=== PATIENT | male | born 1960 | race Caucasian/White ===

== ENCOUNTER 2017-06-05 14:31 | Inpatient (IN) ==
--- NOTE | 2017-06-05 15:38 | Emergency Department Note ---
START Narrative - START START: I examined this patient and my medical decision-making was reviewed with the Resident Physician. I agree with the documented findings, disposition and treatment plan as described except to the extent set forth below. 56-year-old male presents emergency room for swelling and redness of the right lower extremity. It was treated for cellulitis a few days ago on clindamycin. Has failed outpatient therapy. Patient will need be admitted for further workup and treatment of this worsening diabetic foot ulcer with surrounding cellulitis.
[2017-06-05] MEDS ORDERED: Ondansetron 4 MG/2 ML VIAL IVP ONE (15:54)
[2017-06-05] MEDS ORDERED: *HR* HYDROmorphone (PF) 1 MG/ML SYRINGE IVP ONE (15:55)
[2017-06-05 16:02] LABS: Basophils % 0.2 %; Eosinophils # 0.2 K/mcL (0.0-0.6); Eosinophils % 1.5 %; Hematocrit 39.5 % (37.5-50.1); Hemoglobin 12.9 g/dL (12.9-16.9); Immature Granulocytes % 0.3 % (0-4); Lymphocytes # 1.4 K/mcL (0.6-4.6); Lymphocytes % 13.8 %; Mean Corpuscular HGB Conc 32.7 g/dL (31.6-35.5); Mean Corpuscular Hemoglobin 28.9 pg (28.0-33.3); Mean Corpuscular Volume 88.4 fL (83.0-100.0); Mean Platelet Volume 9.9 fL (9.4-12.4); Monocytes # 0.7 K/mcL (0.0-1.3); Monocytes % 6.9 %; Platelet Count 181 K/mcL (140-400); Red Blood Count 4.47 M/mcL (4.19-5.50); Red Cell Distribution Width 14.1 % (11.5-14.5); Segmented Neutrophils % 77.3 %
--- NOTE | 2017-06-05 16:06 | Emergency Department Note ---
Disposition Clinical Impression: Cellulitis Qualifiers: Site of cellulitis: extremity Site of cellulitis of extremity: lower extremity Laterality: right Qualified Code(s): L03.115 - Cellulitis of right lower limb Diabetic foot ulcer Qualifiers: Diabetic foot ulcer location: toe Diabetes mellitus type: type 2 Laterality: right Non-pressure ulcer stage: limited to breakdown of skin Qualified Code(s): E11.621 - Type 2 diabetes mellitus with foot ulcer Disposition: Admitted As Inpatient Condition: Fair Extremity Problem HPI - General Chief complaint: ED Extremity Problem,Nontraumatic Stated complaint: foot ulcer Time Seen by Provider: 06/05/17 15:01 Source: patient Limitations: no limitations Nursing Notes Reviewed: Yes Vital Signs Reviewed: Yes - History of Present Illness HPI Narrative: Patient is a 56-year-old male who presents to ED via POC plank of increased swelling of the right lower extremity foot where patient has a ulceration at the proximal portion of the small toe that has been problematic for several months now. Patient sees Dr. Rubin. Patient was seen here in the ED 5 days ago and placed on antibiotics (Clindamycin) secondary to increased erythema to the foot. Patient is scheduled for surgery with Dr. Rubin in 3 days. Patient states the foot has been painful 10/10 and has an unable to take any medication for the pain secondary 3 days. Patient states that after wound care bandaged his foot 3 days ago the bandages fairly tight. Bandage was on 4 hours and after removal 3 days ago, the foot started to become edematous. Past medical history significant for A. fib, diabetes, hypertension, hyperlipidemia, renal disease Pain Scale: 10 - Related Data Home Medications Medication Instructions Recorded Confirmed Pravastatin Sodium [Pravachol] 20 mg PO HS 08/10/15 06/05/17 Allopurinol [Zyloprim 300 MG] 300 mg PO DAILY 03/23/16 06/05/17 Insulin Glargine [Lantus] 40 unit SQ HS 06/02/17 06/05/17 Alogliptin Benzoate [Alogliptin] 25 mg PO DAILY 06/05/17 06/05/17 Apixaban [Eliquis] 5 mg PO BID 06/05/17 06/05/17 Aspirin Enteric Coated [Aspirin EC] 162 mg PO DAILY 06/05/17 06/05/17 Bumetanide [Bumex] 1 mg PO DAILY PRN 06/05/17 06/05/17 Cefdinir [Omnicef] 300 mg PO BID 06/05/17 06/05/17 Diltiazem HCl [Diltiazem ER] 180 mg PO BID 06/05/17 06/05/17 Furosemide [Lasix] 40 mg PO DAILY 06/05/17 06/05/17 HYDROcodone/Acet 10/325 mg [[place] 1 tab PO Q8H PRN 06/05/17 06/05/17 10-325 mg] Metoprolol Tartrate [Lopressor] 50 mg PO BID 06/05/17 06/05/17 Multivitamin [Multi-Day Vitamins] 1 each PO DAILY 06/05/17 06/05/17 Pregabalin [Lyrica] 100 mg PO TID 06/05/17 06/05/17 Testosterone [Testosterone] 1 appl TP DAILY 06/05/17 06/05/17 Tizanidine HCl 4 mg PO HS 06/05/17 06/05/17 Topiramate [Topiramate] 50 mg PO BID 06/05/17 06/05/17 glipiZIDE [Glipizide] 20 mg PO BID 06/05/17 06/05/17 Previous Rx's Medication Instructions Recorded Clindamycin [Cleocin] 450 mg PO TID #63 capsule 06/02/17 Allergies Allergy/AdvReac Type Severity Reaction Status Date / Time No Known Allergies Allergy Verified 06/05/17 14:38 Review of Systems: Patient denies fevers, chills, diarrhea, chest pain, shortness of breath, any new back pain (patient has chronic lower back pain), dysuria, hematuria, hematochezia. Patient admits to nausea and vomiting times one time earlier today after waking up, numbness in the right hip and pain and edema to right lower extremity distal to mid way down tibia All systems ED: reviewed and negative except as stated. Review of Systems: As Per HPI Past Medical History - Past Medical History Attestation: Yes The following information was validated with the patient. Source: patient Medical history: Reports: arthritis, atrial fibrillation, diabetes, GERD, hyperlipidemia, hypertension, osteoporosis, renal disease, other Surgical history: Reports: orthopedic, other, other Psychiatric history: Reports: depression - Social History Smoking Status: Never smoker Smokeless Tobacco Status: No Alcohol use: Reports: none Drug use: Reports: none Physical Exam Vital Signs Temperature 97.5 F L 06/05/17 14:34 Pulse Rate 100 06/05/17 14:34 Respiratory Rate 20 06/05/17 14:34 Blood Pressure 145/82 06/05/17 14:34 O2 Sat by Pulse Oximetry 96 06/05/17 14:34 Temperature 97.5 F L 06/05/17 14:34 Pulse Rate 101 06/05/17 16:06 Respiratory Rate 18 06/05/17 16:06 Blood Pressure 143/92 06/05/17 15:30 O2 Sat by Pulse Oximetry 93 06/05/17 16:06 Oxygen Delivery Oxygen Delivery Room Air -General Appearance: Patient is a 6-year-old male alert and oriented 3 in no acute distress. Patient is nondiaphoretic, nontoxic-appearing. Patient converses with ease. - Head Head exam: atraumatic, normocephalic, normal inspection - Eye Eye exam: Present: normal appearance, PERRL, EOMI, negative for scleral icterus negative for conjunctival pallor - ENT ENT exam: normal exam, normal oropharynx, mucous membranes moist - Neck Neck exam: Present: normal inspection, full ROM, trachea midline, negative JVD - Chest Chest inspection: Present: Patient has bilateral equal rise and fall of chest wall. Non-tender to palpation. - Respiratory Respiratory exam: Clear to auscultation bilaterally without wheezes rales or rhonchi Cardiovascular Cardiovascular exam: Present: Irregularly irregular rhythm no rubs murmurs or gallops patient tachycardic at presentation - Abdominal Exam Abdominal exam: Present: soft, nondistended, Non-Tender light and deep palpation in all quadrants. Bowel sounds normoactive throughout all 4 quadrants. Negative for hyper or hyperresonance. - Extremities Exam Extremities exam: Right lower MET erythematous distal half of tib-fib extend into toes. Line of demarcation placed with marker and dated by me. Tender to palpation, ulcer shallow without weeping and non-purulent. Dorsal pedal pulses equal laterally, sensation and strength equal bilateral lower extremities - Back Exam Back exam: Present: normal inspection, full ROM. Absent: tenderness, CVA tenderness (R), CVA tenderness (L) - Psychiatric Psychiatric exam: Present: normal affect, normal mood - Skin Skin exam: Present: warm, dry, intact, normal color - General Limitations: no limitations General appearance: alert, in no apparent distress Course - Reevaluation(s) Reevaluation #1: Patient is doing well. Labs drawn, cultures drawn, imaging ordered foot, pain medication ordered Time: 15:36 Reevaluation #2: Patient well. Patient receiving pain medication Time: 16:10 Reevaluation #3: Zosyn ordered, patient's pain currently is 0/10. 1 L IV normal saline ordered - Consultations Consultation #1: Discussed case with Dr. park of podiatry who works with Dr. Rubin also of Podiatry. He recommends admission to hospitalist and started on Zosyn until discussion with Dr. Rubin in patient's renal insufficiency history. Time: 16:37 Consultation #2: Dr. Olea the hospitalist has accepted for admission 1700hrs. She has been informed that Podiatry has been consulted and will see Pt to assess. Pt placed on zosyn IV. Time: 17:01 Vital Signs Temperature 97.5 F L 06/05/17 14:34 Pulse Rate 100 06/05/17 14:34 Respiratory Rate 20 06/05/17 14:34 Blood Pressure 145/82 06/05/17 14:34 O2 Sat by Pulse Oximetry 96 06/05/17 14:34 Temperature 98.6 F 06/05/17 19:30 Pulse Rate 94 06/05/17 19:30 Respiratory Rate 18 06/05/17 19:30 Blood Pressure 156/75 06/05/17 19:30 O2 Sat by Pulse Oximetry 94 06/05/17 19:30 Oxygen Delivery Oxygen Delivery Room Air Extremity Problem, [place] [facility] Narrative Medical decision making narrative: She with worsening of right lower extremity cellulitis extending from mid tib- fib tiptoes with diabetic foot ulcer lateral leading edge just proximal to small toe on the right foot. Patient was placed on clindamycin 4 days ago. Foot appears to be getting worse. Patient shows no abnormal labs at this time and a negative lactate. Patient has no other complaints outside of the worsening area of cellulitis to the foot. X-rays show no subcutaneous tissue gas production. Discussed plan of action with podiatry who recommends admission and placed on Zosyn. Patient was accepted for admission Patient doing well and understands and accepts treatment and plan. - Medical Records Medical records reviewed: Yes I reviewed the patient's medical records. - Lab Data Lab results reviewed: Yes I reviewed the patient's lab results. Lab results narrative: Short CBC 06/05/17 Range/Units 15:28 WBC 10.4 (4.3-11.1) K/mcL Hgb 12.9 (12.9-16.9) g/dL Hct 39.5 (37.5-50.1) % Plt Count 181 (140-400) K/mcL Neutrophils # 8.0 (1.6-8.9) K/mcL BMP 06/05/17 Range/Units 15:28 Sodium 141 (136-145) mEq/L Potassium 4.1 (3.5-4.5) mEq/L Chloride 104 (98-109) mEq/L Carbon Dioxide 28 (19-29) mEq/L BUN 19 (8-26) mg/dL Creatinine 1.14 (0.72-1.25) mg/dL Glucose 186 H (70-99) mg/dL Calcium 10.1 (8.6-10.8) mg/dL Result diagrams: 06/05/17 15:28 06/05/17 15:28 Lab Results 06/05/17 06/05/17 06/05/17 Range/Units 15:28 15:28 15:56 WBC 10.4 (4.3-11.1) K/mcL RBC 4.47 (4.19-5.50) M/mcL Hgb 12.9 (12.9-16.9) g/dL Hct 39.5 (37.5-50.1) % MCV 88.4 (83.0-100.0) fL MCH 28.9 (28.0-33.3) pg MCHC 32.7 (31.6-35.5) g/dL RDW 14.1 (11.5-14.5) % Plt Count 181 (140-400) K/mcL MPV 9.9 (9.4-12.4) fL Immature Gran % 0.3 (0-4) % Seg Neutrophils % 77.3 % Lymphocytes % 13.8 % Monocytes % 6.9 % Eosinophils % 1.5 % Basophils % 0.2 % Neutrophils # 8.0 (1.6-8.9) K/mcL Lymphocytes # 1.4 (0.6-4.6) K/mcL Monocytes # 0.7 (0.0-1.3) K/mcL Eosinophils # 0.2 (0.0-0.6) K/mcL Basophils # 0.0 (0.0-0.2) K/mcL Sodium 141 (136-145) mEq/L Potassium 4.1 (3.5-4.5) mEq/L Chloride 104 (98-109) mEq/L Carbon Dioxide 28 (19-29) mEq/L BUN 19 (8-26) mg/dL Creatinine 1.14 (0.72-1.25) mg/dL Est GFR ( Amer) > 60 (> 60) Est GFR (Non-Af Amer) > 60 (> 60) BUN/Creatinine Ratio 17 (6-26) Glucose 186 H (70-99) mg/dL POC Glucose (58-89) Calculated Osmolality 299 (280-300) Lactic Acid 1.7 (0.5-2.2) mmol/L Calcium 10.1 (8.6-10.8) mg/dL 06/05/17 Range/Units 18:42 WBC (4.3-11.1) K/mcL RBC (4.19-5.50) M/mcL Hgb (12.9-16.9) g/dL Hct (37.5-50.1) % MCV (83.0-100.0) fL MCH (28.0-33.3) pg MCHC (31.6-35.5) g/dL RDW (11.5-14.5) % Plt Count (140-400) K/mcL MPV (9.4-12.4) fL Immature Gran % (0-4) % Seg Neutrophils % % Lymphocytes % % Monocytes % % Eosinophils % % Basophils % % Neutrophils # (1.6-8.9) K/mcL Lymphocytes # (0.6-4.6) K/mcL Monocytes # (0.0-1.3) K/mcL Eosinophils # (0.0-0.6) K/mcL Basophils # (0.0-0.2) K/mcL Sodium (136-145) mEq/L Potassium (3.5-4.5) mEq/L Chloride (98-109) mEq/L Carbon Dioxide (19-29) mEq/L BUN (8-26) mg/dL Creatinine (0.72-1.25) mg/dL Est GFR ( Amer) (> 60) Est GFR (Non-Af Amer) (> 60) BUN/Creatinine Ratio (6-26) Glucose (70-99) mg/dL POC Glucose 173 H (58-89) Calculated Osmolality (280-300) Lactic Acid (0.5-2.2) mmol/L Calcium (8.6-10.8) mg/dL - Radiology Data Radiology results reviewed: Yes I reviewed the patient's radiology results. Ankle X-Ray 06/05/17 15:36 IMPRESSION: No evidence of soft tissue gas or acute osseous abnormality of the right ankle or foot. D/ / Jose Nguyen MD / Jose Nguyen MD Interpreting Provider: Jose Nguyen MD Foot X-Ray 06/05/17 15:36
[2017-06-05 16:13] LABS: BUN/Creatinine Ratio 17 (6-26); Blood Urea Nitrogen 19 mg/dL (8-26); Calcium 10.1 mg/dL (8.6-10.8); Carbon Dioxide 28 mEq/L (19-29); Chloride 104 mEq/L (98-109); Glucose 186 mg/dL (70-99); Osmolality,Calculated 299 (280-300); Potassium 4.1 mEq/L (3.5-4.5); Sodium 141 mEq/L (136-145); eGFR For African Americans > 60 (> 60); eGFR For Non-African Americans > 60 (> 60)
[2017-06-05] MEDS ORDERED: Piperacillin/Tazobactam 3.375 GM in D5% in Water (Mini-Bag+) 100 ML IVPB ONE (16:35)
[2017-06-05] MEDS ORDERED: 0.9 % Sodium Chloride 1,000 ML IVC ONE (16:36)
[2017-06-05] MEDS ORDERED: Bumetanide 1 MG TABLET PO PRN (19:04)
[2017-06-05] MEDS ORDERED: *HR* Dextrose 50 % in Water (Syg) 50 ML SYRINGE IVP PRN (19:14)
[2017-06-05] MEDS ORDERED: D5% in Water 1,000 ML IVC PRN (19:14)
[2017-06-05] MEDS ORDERED: Dextrose Gel 15 GM PO PRN ×2 (19:14)
[2017-06-05] MEDS ORDERED: Acetaminophen 325 MG TABLET PO PRN (19:15)
[2017-06-05] MEDS ORDERED: Naloxone 0.4 MG/ML INJ IVP PRN (19:15)
[2017-06-05] MEDS ORDERED: *HR* HYDROcodone/Acet 5/325 mg TABLET PO PRN (19:15)
[2017-06-05] MEDS ORDERED: Ondansetron 4 MG/2 ML VIAL IVP PRN (19:15)
[2017-06-05] MEDS ORDERED: Vancomycin 2,000 MG in D5% in Water 250 ML IVPB SCH (20:00)
[2017-06-05] MEDS ORDERED: NON-FORMULARY MEDICATION 1 EACH EACH (Insulin Glargine [Lantus] 40 UNIT) SQ SCH (21:00)
[2017-06-05] MEDS: APIXABAN 5 MG TABLET PO SCH (21:17)
[2017-06-05] MEDS: *HR* Morphine 2 MG/ML SYRINGE IVP PRN (21:17)
[2017-06-05] MEDS: tiZANidine 4 MG TABLET PO SCH (21:17)
[2017-06-05] MEDS: Topiramate 25 MG TABLET PO SCH (21:23)
[2017-06-05] MEDS: Pregabalin 50 MG CAPSULE PO SCH (21:23)
[2017-06-05] MEDS: Pantoprazole 40 MG VIAL IVP SCH (21:24)
[2017-06-05] MEDS: Furosemide 40 MG/4 ML VIAL IVP SCH (21:24)
[2017-06-05] MEDS: Diltiazem SR (12hr) 90 MG CAPSULE PO SCH (21:24)
[2017-06-05] MEDS: Insulin LISPRO 300 UNITS/3 ML VIAL SQ SCH (21:24)
[2017-06-05] MEDS: Vancomycin 2,000 MG in D5% in Water 500 ML IVPB SCH (22:02)
[2017-06-05] MEDS: Insulin DETEMIR 100 UNIT/ML X5UNITS SQ SCH (22:02)
--- NOTE | 2017-06-05 22:28 | Internal Med History&Physical ---
Date of Encounter: 06/06/17 Time of Encounter: 17:00 Assessment and Plan (1) Cellulitis Current visit: Yes Status: Acute Patient presents with cellulitis of right lower extremity. Patient's right foot , ankle, and slightly below the calf are erythematous, edematous, and warm to the touch. Patient states this is going on for the past several days. Patient' s WBCs are currently 10.4 on admission, heart rate was 100 and respiration rate 20. Patient currently does not meet SIRS criteria but will be monitored closely for signs of increasing infection. IV Zosyn administered in the ED and we will continue IV Zosyn as well as IV vancomycin per pharmacy dosing for infection coverage. Monitor follow-up labs for WBCs. Qualifiers: Site of cellulitis: extremity Site of cellulitis of extremity: lower extremity Laterality: right Qualified Code(s): L03.115 - Cellulitis of right lower limb (2) Diabetic foot ulcer Current visit: Yes Status: Acute Patient presents with diabetic foot ulcer on sole of right foot. Ulcer is currently extending through the fat layer. Patient is followed by Dr. Rubin. Podiatry consult ordered in ED. Wound care ordered daily. Qualifiers: Diabetic foot ulcer location: other Diabetes mellitus type: type 2 Laterality: right Non-pressure ulcer stage: with fat layer exposed Qualified Code(s): E11.621 - Type 2 diabetes mellitus with foot ulcer; L97.512 - Non-pressure chronic ulcer of other part of right foot with fat layer exposed (3) Chronic atrial fibrillation Current visit: Yes Status: Chronic Patient presents with history of chronic atrial fibrillation. Patient placed on continuous cardiac telemetry and we will continue patient's Eliquis. (4) Diabetes Current visit: Yes Status: Chronic Patient presents with history of chronic diabetes which is uncontrolled for the most part. Patient reports he does not do blood glucose checks at home and only relies on A1c readings. Patient instructed on the importance of diet and sugar reduction for management of his current diabetes. Blood glucose before meals at bedtime ordered. A1c ordered. Will continue patient's insulin and add 6 units of nutritional insulin as well as low-dose correction insulin sliding scale and hypoglycemia protocol. Diabetic diet ordered as well as diabetes education. Qualifiers: Diabetes mellitus type: type 2 Diabetes mellitus complication status: with skin complications Diabetes mellitus complication detail: with foot ulcer Diabetes mellitus detention insulin use: with detention use Qualified Code(s) : E11.621 - Type 2 diabetes mellitus with foot ulcer; L97.509 - Non-pressure chronic ulcer of other part of unspecified foot with unspecified severity; Z79.4 - [facility] (current) use of insulin (5) GERD (gastroesophageal reflux disease) Current visit: Yes Status: Chronic Patient presents with history of chronic gastroesophageal reflux disease. IVP Protonix 40 mg ordered daily. Qualifiers: Esophagitis presence: esophagitis presence not specified Qualified Code(s) : K21.9 - Gastro-esophageal reflux disease without esophagitis (6) HLD (hyperlipidemia) Current visit: Yes Status: Chronic Patient presents with history of chronic hyperlipidemia. Lipid panel ordered. Will continue patient's Zocor and Pravastatin. Qualifiers: Hyperlipidemia type: pure hypercholesterolemia Qualified Code(s): E78.00 - Pure hypercholesterolemia, unspecified; E78.0 - Pure hypercholesterolemia (7) HTN (hypertension) Current visit: Yes Status: Chronic Patient presents with history of chronic hypertension. Will monitor patient vital signs. Continue patient's Lopressor and diltiazem. Qualifiers: Hypertension type: essential hypertension Qualified Code(s): I10 - Essential (primary) hypertension (8) DVT prophylaxis Current visit: Yes Status: Acute Patient placed on DVT prophylaxis due to current admission protocol and bedrest status. We will continue patient's Eliquis. Internal Medicine - H&P: HPI Chief complaint: RLE Swelling/Pain Admitted From: Emergency Dept Plans for Post Hospital Care: Home History of present illness: Mr. Rausch is a 56 year old male who presents from the ED with chief complaint of swelling and pain in the right lower extremity/foot due to ulceration of the proximal portion of the small toe that is problematic for several months. Patient denies nausea, vomiting, diarrhea, headache, changes in vision, dizziness, abdominal pain, presyncope, or syncope. Patient is currently followed by Dr. Rubin. Patient currently has diabetic foot ulcer on the sole of the right foot as well as a painful oozing sore on the top of the right foot. Right leg appears cellulitic with erythema extending up past the ankle as well as edema. Currently both LEs are edematous. Patient's current WBCs are 10.4 on admission. Heart rate is 100 and respiratory rate 20. Patient's temperature is 97.5 F. Patient currently does not meet SIRS criteria but will be monitored closely. X-ray taken today of the foot shows no subcutaneous tissue gas production and no indication of osteomyelitis. IV sedation was administered in the ED and we will continue IV Zosyn as well as IV vancomycin with pharmacy dosing for infection coverage. Consult to podiatry and diabetic education ordered. Mr. Rausch is at moderate risk for increasing infection based on current symptoms and will be placed his inpatient status. Patient's current medical history includes arthritis, atrial fibrillation, diabetes with insulin dependency, GERD, HL M.D., HTN, osteoporosis, and renal disease. Follow-up labs ordered to monitor patient's WBCs and infection status. Patient to be monitored closely. Time spent with patient greater than 40 minutes. Past Med Surg Social Fam HX - Past Medical History Source: patient Medical history: arthritis, atrial fibrillation, diabetes, GERD, hyperlipidemia , hypertension, osteoporosis, renal disease, other Psychiatric history: depression - Past Surgical History Surgical History: orthopedic, other (2 lower back, neck, and rotator cuff), other - Social History Smoking Status: Never smoker Smokeless Tobacco Status: No Alcohol use: none Drug use: none Current living situation: Home, With Family Activity Level: Independent ambulation Recent Out of Country Travel Within the Last 8 Weeks: No Exposure or Possible Exposure to Illness During Travel: No - Family History Father Race: Family Member Ethnicity: Non- Living Status: Age at : 72 Cause of : [place] Hx Family Cardiac Disorders: Yes (DE, CHF) Hx Family Endocrine Disorder: Yes (Diabetes) Mother Race: Family Member Ethnicity: Non- Living Status: Age at : 61 Cause of : [place] Hx Family Cardiac Disorders: Yes (CHF, DE) Hx Family Endocrine Disorder: Yes (DM) Brother Race: Family Member Ethnicity: Non- Living Status: Still Living Hx Family Endocrine Disorder: Yes (Thyroid disease, DM) Internal Medicine - H&P: Meds Pravastatin Sodium [Pravachol] 20 mg PO HS 08/10/15 [History] Allopurinol [Zyloprim 300 MG] 300 mg PO DAILY 03/23/16 [History] Clindamycin [Cleocin] 450 mg PO TID #63 capsule 06/02/17 [Rx] Insulin Glargine [Lantus] 40 unit SQ HS 06/02/17 [History] Alogliptin Benzoate [Alogliptin] 25 mg PO DAILY 06/05/17 [History] Apixaban [Eliquis] 5 mg PO BID 06/05/17 [History] Aspirin Enteric Coated [Aspirin EC] 162 mg PO DAILY 06/05/17 [History] Bumetanide [Bumex] 1 mg PO DAILY PRN 06/05/17 [History] Cefdinir [Omnicef] 300 mg PO BID 06/05/17 [History] Diltiazem HCl [Diltiazem ER] 180 mg PO BID 06/05/17 [History] Furosemide [Lasix] 40 mg PO DAILY 06/05/17 [History] HYDROcodone/Acet 10/325 mg [[place] 10-325 mg] 1 tab PO Q8H PRN 06/05/17 [History] Metoprolol Tartrate [Lopressor] 50 mg PO BID 06/05/17 [History] Multivitamin [Multi-Day Vitamins] 1 each PO DAILY 06/05/17 [History] Pregabalin [Lyrica] 100 mg PO TID 06/05/17 [History] Testosterone [Testosterone] 1 appl TP DAILY 06/05/17 [History] Tizanidine HCl 4 mg PO HS 06/05/17 [History] Topiramate [Topiramate] 50 mg PO BID 06/05/17 [History] glipiZIDE [Glipizide] 20 mg PO BID 06/05/17 [History] Allergies No Known Allergies Allergy (Verified 06/05/17 14:38) All Systems PM: A 10-system review of systems was performed and is negative for pertinent findings except as documented above in the HPI. - Constitutional Constitutional: no chills, no fever(s), no night sweats - EENT Eyes: no change in vision, no discharge, no pain, no photophobia Ears: no ear discharge, no ear pain, no tinnitus Nose, mouth and throat: no dysphagia, no nasal discharge, no neck pain, no sore throat - Breasts Breasts: as per HPI - Cardiovascular Cardiovascular ROS IM: no chest pain, no diaphoresis, no dyspnea, no lightheadedness, no palpitations, no syncope - Respiratory Respiratory: no cough, no dyspnea, no wheezing, no excessive phlegm production - Gastrointestinal Gastrointestinal: no abdominal pain, no diarrhea, no hematemesis, no hematochezia, no melena, no nausea, no vomiting - Genitourinary Genitourinary ROS male: as per HPI - Musculoskeletal Musculoskeletal ROS IM: no numbness, no tingling - Integumentary Integumentary IM: skin ulcer (RLE), sores (RLE) - Neurological Neurological ROS: no confusion, no convulsions, no focal weakness, no numbness, no tingling, no tremor(s) - Psychiatric Psychiatric: as per HPI - Endocrine Endocrine IM: as per HPI - Hematologic/Lymphatic Hematologic/Lymphatic: no easy bruising - Allergic/Immunologic Allergic/Immunologic: as per HPI - Constitutional Vitals: Temp Pulse Resp BP Pulse Ox 98.6 F 94 18 156/75 94 06/05/17 19:30 06/05/17 19:30 06/05/17 19:30 06/05/17 19:30 06/05/17 19:30 General appearance: Present: cooperative, A&O X 3, morbidly obese, pleasant, no acute distress, answers questions appropriately - Head Head exam: Present: atraumatic, normocephalic - Eye Eye exam: Present: PERRL, conjuntiva pink, sclera anicteric Pupils: Present: PERRL - ENT ENT exam: Present: normal exam, normal external ear exam - Neck Neck exam general surgery: Present: normal inspection, supple, trachea midline. Absent: lymphadenopathy - Respiratory Respiratory exam: Present: CTAB. Absent: accessory muscle use, rales, rhonchi, wheezes - Cardiovascular Cardiovascular exam: Present: irregular rhythm - GI/Abdominal GI/Abdominal exam: Present: normal bowel sounds, soft, no peritoneal signs. Absent: distended, tenderness - Rectal Rectal exam: Present: deferred - Additional comments: exam deferred. - Extremities Exam Extremities exam: Present: pedal edema, warm - Back Exam Back exam: Present: normal inspection - Neurological Exam Neurological exam: Present: CN II-XII intact, oriented X3, no focal deficits. Absent: pronater drift, facial droop, speech deficit - Psychiatric Psychiatric exam: Present: normal affect, normal mood - Skin Skin exam: Present: dry, intact Internal Med - H&P Results - Labs CBC & Chem 7: 06/05/17 15:28 06/05/17 15:28 - Diagnostic Studies Other Images Additional comments: Impressions Ankle X-Ray 06/05/17 15:36 IMPRESSION: No evidence of soft tissue gas or acute osseous abnormality of the right ankle or foot. D/ / Jose Nguyen MD / Jose Nguyen MD Interpreting Provider: Jose Nguyen MD Foot X-Ray 06/05/17 15:36
[2017-06-06] MEDS: Piperacillin/Tazobactam 3.375 GM in D5% in Water (Mini-Bag+) 100 ML IVPB SCH ×3 (00:19→16:02)
[2017-06-06 05:46] LABS: Basophils % 0.4 %; Eosinophils # 0.4 K/mcL (0.0-0.6); Eosinophils % 3.9 %; Hematocrit 38.6 % (37.5-50.1); Hemoglobin 12.9 g/dL (12.9-16.9); Immature Granulocytes % 0.4 % (0-4); Lymphocytes # 1.5 K/mcL (0.6-4.6); Lymphocytes % 17.2 %; Mean Corpuscular HGB Conc 33.4 g/dL (31.6-35.5); Mean Corpuscular Hemoglobin 29.5 pg (28.0-33.3); Mean Corpuscular Volume 88.1 fL (83.0-100.0); Mean Platelet Volume 9.7 fL (9.4-12.4); Monocytes # 0.7 K/mcL (0.0-1.3); Monocytes % 7.8 %; Neutrophils # 6.3 K/mcL (1.6-8.9); Platelet Count 180 K/mcL (140-400); Red Blood Count 4.38 M/mcL (4.19-5.50); Red Cell Distribution Width 14.3 % (11.5-14.5); Segmented Neutrophils % 70.3 %
[2017-06-06 05:53] LABS: INR 1.8; Prothrombin Time 19.8 Seconds (9.4-12.1)
[2017-06-06 05:55] LABS: Activated Partial Thrombo Time 37.8 Seconds (26.0-36.0)
[2017-06-06 06:00] LABS: BUN/Creatinine Ratio 15 (6-26); Blood Urea Nitrogen 17 mg/dL (8-26); Calcium 9.5 mg/dL (8.6-10.8); Carbon Dioxide 28 mEq/L (19-29); Chloride 104 mEq/L (98-109); Chol/HDL Ratio 3.2 (0-4.9); Cholesterol 93 mg/dL (< 200); Glucose 114 mg/dL (70-99); HDL Cholesterol 29 mg/dL (40-59); Hemoglobin A1C 6.1 %; LDL Cholesterol,Calculated 40 mg/dL (0-99); Magnesium 1.8 mg/dL (1.6-2.6); Osmolality,Calculated 290 (280-300); Potassium 3.5 mEq/L (3.5-4.5); Sodium 139 mEq/L (136-145); Triglycerides 118 mg/dL (< 150); eGFR For African Americans > 60 (> 60); eGFR For Non-African Americans > 60 (> 60)
[2017-06-06] MEDS: *HR* Morphine 2 MG/ML SYRINGE IVP PRN ×3 (08:40→21:11)
[2017-06-06] MEDS: Insulin LISPRO 300 UNITS/3 ML VIAL SQ SCH ×7 (08:42→21:10)
[2017-06-06] MEDS: Aspirin Enteric Coated 81 MG Tablet PO SCH (08:44)
[2017-06-06] MEDS: Diltiazem SR (12hr) 90 MG CAPSULE PO SCH ×2 (08:44→21:10)
[2017-06-06] MEDS: APIXABAN 5 MG TABLET PO SCH ×2 (08:45→21:09)
[2017-06-06] MEDS: TESTOSTERONE APPL TP SCH (08:45)
[2017-06-06] MEDS: Pregabalin 50 MG CAPSULE PO SCH ×3 (08:45→21:10)
[2017-06-06] MEDS: Furosemide 40 MG/4 ML VIAL IVP SCH (08:45)
[2017-06-06] MEDS: Pantoprazole 40 MG VIAL IVP SCH (08:45)
[2017-06-06] MEDS: Topiramate 25 MG TABLET PO SCH ×2 (08:46→21:09)
[2017-06-06] MEDS: Multivit/Ca/Min/Fe/FA 1 TAB TABLET PO SCH (08:46)
[2017-06-06] MEDS: Vancomycin 2,000 MG in D5% in Water 500 ML IVPB SCH ×2 (09:04→21:13)
--- NOTE | 2017-06-06 13:49 | Podiatry Consult Note ---
Date of Encounter: 06/06/17 Time of Encounter: 12:00 Assessment and Plan (1) Cellulitis Current visit: Yes Status: Acute Qualifiers: Site of cellulitis: extremity Site of cellulitis of extremity: lower extremity Laterality: right Qualified Code(s): L03.115 - Cellulitis of right lower limb (2) Diabetic foot ulcer Current visit: Yes Status: Acute Cellulitis to the right foot secondary to a full thickness diabetic foot ulceration. Will order an MRI of the right foot, ESR, and CRP. Positive probe to bone through ulceration and concern for abscess. Xray of right foot reviewed, no evidence of bony erosion to the 5th metatarsal head right foot. Dr. Rubin to take patient to OR on 06/08/17 for a wide I&D and metatarsal head # 5 resection right foot. Agree with present antibiotic therapy. Blood cultures ordered and pending. Wound cultures from the right foot on 06/02/17 isolated Citrobacter Braakii and Strep agalactiae (Group B). Wound cultures ordered this admission and pending. WBC: 8.9 and a febrile. Wound care daily, cleanse right foot ulcer daily with mild soap and water pat dry, apply dry sterile 4x4 gauze and kerlix. Qualifiers: Diabetic foot ulcer location: other Diabetes mellitus type: type 2 Laterality: right Non-pressure ulcer stage: with fat layer exposed Qualified Code(s): E11.621 - Type 2 diabetes mellitus with foot ulcer; L97.512 - Non-pressure chronic ulcer of other part of right foot with fat layer exposed (3) Diabetes Current visit: Yes Status: Chronic Qualifiers: Diabetes mellitus type: type 2 Diabetes mellitus complication status: with skin complications Diabetes mellitus complication detail: with foot ulcer Diabetes mellitus supervisor intermediates insulin use: with supervisor intermediates use Qualified Code(s) : E11.621 - Type 2 diabetes mellitus with foot ulcer; L97.509 - Non-pressure chronic ulcer of other part of unspecified foot with unspecified severity; Z79.4 - manager terminal (current) use of insulin History of Present Illness HPI: Mr. Rausch is a 56 year old male admitted to [facility] for a diabetic foot ulceration and cellulitis of the right foot. Patient was initially scheduled to have a 5th metatarsal head resection as an outpatient by Dr. Rubin on 06/08/17. Patient states 6 days ago his right foot became swollen, red, and an open sore formed on the top of the right foot. Patient denies any injury or trauma. Patient states he has had the ulcer to the right foot for approximately a year. Patient states he was being treated in wound care at [place]. Wound cultures from the right foot on 06/02/17 isolated Citrobacter Braakii and Strep agalactiae (Group B). Patient states he went to the ED in [place] for the swelling of the right foot on Monday and was discharged on oral antibiotics. Patient was evaluated in wound care yesterday and was sent over to the hospital due to regression of ulceration. Patient denies fever, chills, nausea, vomiting , or flu like symptoms. Patient has a medical history significant for arthritis , atrial fibrillation, diabetes mellitus with neuropathy, GERD, hyperlipidemia, hypertension, osteopenia, renal disease, and depression. Past Med Surg Social Fam HX - Past Medical History Medical history: arthritis, atrial fibrillation, diabetes, GERD, hyperlipidemia , hypertension, osteoporosis, renal disease, other Psychiatric history: depression - Past Surgical History Surgical History: orthopedic, other (2 lower back, neck, and rotator cuff), other - Social History Smoking Status: Never smoker Smokeless Tobacco Status: No Alcohol use: none Drug use: none - Family History Father Race: Family Member Ethnicity: Non- Living Status: Age at : 72 Cause of : OR Hx Family Cardiac Disorders: Yes (OR, CHF) Hx Family Endocrine Disorder: Yes (Diabetes) Mother Race: Family Member Ethnicity: Non- Living Status: Age at : 61 Cause of : OR Hx Family Cardiac Disorders: Yes (CHF, OR) Hx Family Endocrine Disorder: Yes (DM) Brother Race: Family Member Ethnicity: Non- Living Status: Still Living Hx Family Endocrine Disorder: Yes (Thyroid disease, DM) Medications and Allergies Pravastatin Sodium [Pravachol] 20 mg PO HS 08/10/15 [History] Allopurinol [Zyloprim 300 MG] 300 mg PO DAILY 03/23/16 [History] Clindamycin [Cleocin] 450 mg PO TID #63 capsule 06/02/17 [Rx] Insulin Glargine [Lantus] 40 unit SQ HS 06/02/17 [History] Alogliptin Benzoate [Alogliptin] 25 mg PO DAILY 06/05/17 [History] Apixaban [Eliquis] 5 mg PO BID 06/05/17 [History] Aspirin Enteric Coated [Aspirin EC] 162 mg PO DAILY 06/05/17 [History] Bumetanide [Bumex] 1 mg PO DAILY PRN 06/05/17 [History] Cefdinir [Omnicef] 300 mg PO BID 06/05/17 [History] Diltiazem HCl [Diltiazem ER] 180 mg PO BID 06/05/17 [History] Furosemide [Lasix] 40 mg PO DAILY 06/05/17 [History] HYDROcodone/Acet 10/325 mg [[place] 10-325 mg] 1 tab PO Q8H PRN 06/05/17 [History] Metoprolol Tartrate [Lopressor] 50 mg PO BID 06/05/17 [History] Multivitamin [Multi-Day Vitamins] 1 each PO DAILY 06/05/17 [History] Pregabalin [Lyrica] 100 mg PO TID 06/05/17 [History] Testosterone [Testosterone] 1 appl TP DAILY 06/05/17 [History] Tizanidine HCl 4 mg PO HS 06/05/17 [History] Topiramate [Topiramate] 50 mg PO BID 06/05/17 [History] glipiZIDE [Glipizide] 20 mg PO BID 06/05/17 [History] Allergies No Known Allergies Allergy (Verified 06/05/17 14:38) All Systems Reviewed: A 10-system review of systems was performed and is negative for pertinent findings except as documented above in the HPI. Physical Exam - Constitutional Vitals: Temp Pulse Resp BP Pulse Ox 98.1 F 91 18 144/84 95 06/06/17 11:31 06/06/17 11:31 06/06/17 11:31 06/06/17 11:31 06/06/17 11:31 Exam: General appearance: alert awake oriented X 3. Calm and pleasant, no acute distress.. Vascular: Pedal pulses +2/4 DP/PT , No evidence of cyanosis, pallor or rubor, right foot: Edema graded at 2+/4, Skin Temperature warm, No calf pain with manual compression. capillary refill time is immediate to digits. Neurologic: Sensation diminished with light touch to right foot. . Ulcer: Full-thickness ulceration to sub #5 metatarsal head right foot measuring 1.5 cm in length x 1.5 cm in width with ascending cellulitis to the mid anterior tibial region of the RLE, positive probe to bone. Open area to the dorsal aspect of the right foot at the fifth metatarsal head with erythema and swelling. Moderate amount of serous drainage observed to dressing, no odor. Results - Labs Result Diagrams: 06/06/17 05:17 06/06/17 05:17 Labs: Abnormal lab results PT 19.8 Seconds (9.4-12.1) H 06/06/17 05:17 APTT 37.8 Seconds (26.0-36.0) H 06/06/17 05:17 Glucose 114 mg/dL (70-99) H 06/06/17 05:17 POC Glucose 224 (58-89) H 06/06/17 11:30 Hemoglobin A1c 6.1 % (-5.6) H 06/06/17 05:17 HDL Cholesterol 29 mg/dL (40-59) L 06/06/17 05:17 H & H 06/06/17 Range/Units 05:17 Hgb 12.9 (12.9-16.9) g/dL Hct 38.6 (37.5-50.1) % All other labs normal. Consult Discharge Plan - Plan Referrals: Rogers Pederson MD [Primary Care Provider] - 06/13/17 3:30 pm
--- NOTE | 2017-06-06 16:04 | Internal Med Progress Note ---
Date of Encounter: 06/06/17 Time of Encounter: 09:55 - Assessment and plan (1) Cellulitis Current Visit: Yes Status: Acute Assessment and plan: Acute cellulitis of the right lower extremity. Continue IV antibiotics. Clinically getting better. Moderate risk for complications. Qualifiers: Site of cellulitis: extremity Site of cellulitis of extremity: lower extremity Laterality: right Qualified Code(s): L03.115 - Cellulitis of right lower limb (2) Diabetic foot ulcer Current Visit: Yes Status: Acute Assessment and plan: Podiatry has been consulted. We will follow recommendations. Continue local wound care and IV antibiotics. Qualifiers: Diabetic foot ulcer location: other Diabetes mellitus type: type 2 Laterality: right Non-pressure ulcer stage: with fat layer exposed Qualified Code(s): E11.621 - Type 2 diabetes mellitus with foot ulcer; L97.512 - Non-pressure chronic ulcer of other part of right foot with fat layer exposed (3) Chronic atrial fibrillation Current Visit: Yes Status: Chronic Assessment and plan: Rate control. On Eliquis for anticoagulation. Will stop prior to surgery. (4) Diabetes Current Visit: Yes Status: Chronic Assessment and plan: Blood sugars are well controlled. Continue sliding scale insulin and Levemir Qualifiers: Diabetes mellitus type: type 2 Diabetes mellitus complication status: with skin complications Diabetes mellitus complication detail: with foot ulcer Diabetes mellitus assisted insulin use: with assisted use Qualified Code(s) : E11.621 - Type 2 diabetes mellitus with foot ulcer; L97.509 - Non-pressure chronic ulcer of other part of unspecified foot with unspecified severity; Z79.4 - termination clerk (current) use of insulin (5) DVT prophylaxis Current Visit: Yes Status: Acute (6) GERD (gastroesophageal reflux disease) Current Visit: Yes Status: Chronic Assessment and plan: Continue Protonix Qualifiers: Esophagitis presence: esophagitis presence not specified Qualified Code(s) : K21.9 - Gastro-esophageal reflux disease without esophagitis (7) HTN (hypertension) Current Visit: Yes Status: Chronic Assessment and plan: Blood pressure is better controlled. Continue metoprolol and bumex Qualifiers: Hypertension type: essential hypertension Qualified Code(s): I10 - Essential (primary) hypertension - Subjective Interval history: Patient is awake and alert. Feels that the pain in his right lower extremity somewhat better. Continues to have erythema and swelling in the right lower extremity. No fever reported overnight. No chills or night sweats. Pain well controlled with current medication regimen. - Constitutional Vitals: Temp Pulse Resp BP Pulse Ox 98.0 F 68 18 124/46 96 06/06/17 15:23 06/06/17 15:23 06/06/17 15:23 06/06/17 15:23 06/06/17 15:23 General appearance: Present: cooperative, A&O X 3, morbidly obese, pleasant, no acute distress, answers questions appropriately - Respiratory Respiratory exam: Present: CTAB. Absent: accessory muscle use, rales, rhonchi, wheezes - Cardiovascular Cardiovascular exam: Present: RRR, +S1, +S2. Absent: diastolic murmur, gallop, rubs, systolic murmur - GI/Abdominal GI/Abdominal exam: Present: normal bowel sounds, soft, no peritoneal signs. Absent: distended, tenderness - Extremities Exam Extremities exam: Present: warm, radial pulses palpable and symmetrical. Absent : calf tenderness, cyanotic, pedal edema Additional comments: Erythema and swelling and right lower extremity slightly improved compared to markings placed on admission. Right foot is currently bandaged. Internal Medicine: Result - Labs CBC & Chem 7: 06/06/17 05:17 06/06/17 05:17 Labs: Short CBC 06/06/17 Range/Units 05:17 WBC 8.9 (4.3-11.1) K/mcL Hgb 12.9 (12.9-16.9) g/dL Hct 38.6 (37.5-50.1) % Plt Count 180 (140-400) K/mcL Neutrophils # 6.3 (1.6-8.9) K/mcL BMP 06/06/17 05:17 Sodium 139 Potassium 3.5 Chloride 104 Carbon Dioxide 28 BUN 17 Creatinine 1.10 Glucose 114 H Calcium 9.5 - ABG Interpretation ABG results: PT/INR, D-dimer PT 19.8 Seconds (9.4-12.1) H 06/06/17 05:17 Consult Discharge Plan - Plan Referrals: Rogers Pederson MD [Primary Care Provider] - 06/13/17 3:30 pm
[2017-06-06] MEDS: tiZANidine 4 MG TABLET PO SCH (21:10)
[2017-06-06] MEDS: Insulin DETEMIR 100 UNIT/ML X5UNITS SQ SCH (21:11)
[2017-06-07] MEDS: Piperacillin/Tazobactam 3.375 GM in D5% in Water (Mini-Bag+) 100 ML IVPB SCH ×3 (00:04→16:13)
[2017-06-07] MEDS: *HR* Morphine 2 MG/ML SYRINGE IVP PRN ×5 (04:11→21:03)
[2017-06-07] MEDS: Insulin LISPRO 300 UNITS/3 ML VIAL SQ SCH ×7 (08:44→21:10)
[2017-06-07] MEDS: Pantoprazole 40 MG VIAL IVP SCH (08:45)
[2017-06-07] MEDS: Aspirin Enteric Coated 81 MG Tablet PO SCH (08:48)
[2017-06-07] MEDS: Diltiazem SR (12hr) 90 MG CAPSULE PO SCH ×2 (08:48→21:00)
[2017-06-07] MEDS: Topiramate 25 MG TABLET PO SCH ×2 (08:49→21:02)
[2017-06-07] MEDS: Multivit/Ca/Min/Fe/FA 1 TAB TABLET PO SCH (08:49)
[2017-06-07] MEDS: Pregabalin 50 MG CAPSULE PO SCH ×3 (08:49→21:01)
[2017-06-07] MEDS: Bumetanide 1 MG TABLET PO SCH (08:50)
[2017-06-07] MEDS: TESTOSTERONE APPL TP SCH (09:12)
--- NOTE | 2017-06-07 11:49 | Podiatry Progress Note ---
Date of Encounter: 06/07/17 Time of Encounter: 11:45 - Assessment and Plan (1) Diabetic foot ulcer Current Visit: Yes Status: Acute Assessment: #1 diabetic foot ulcer with recent exacerbation of cellulitis /infection superficial skin necrosis with positive probe to bone test #2 multiple comorbidities as outlined in history Plan: #1 recommend formal debridement and incision and drainage removal of all the necrotic tissue and bone with deep cultures #2 continue present antibiotic therapy #3 local wound care #4 discussed risks versus the benefits as well as alternatives to surgical intervention and debridement. Risks include but not limited to loss of toe, toes, foot, leg, life. DVT bleeding pain before the surgery failure procedure produces I results. Patient able opportunity ask questions about planned procedure type of anesthetic to be employed which is sedation with local anesthesia. All questions are answered to his satisfaction. No guarantees or assurances were made to the outcome. Patient voices comprehension agrees to plan of care. Qualifiers: Diabetic foot ulcer location: unspecified part of foot Diabetes mellitus type: type 2 Laterality: right Non-pressure ulcer stage: limited to breakdown of skin Qualified Code(s): E11.621 - Type 2 diabetes mellitus with foot ulcer; L97.511 - Non-pressure chronic ulcer of other part of right foot limited to breakdown of skin Subjective Principal diagnosis: Diabetic foot ulcer with infection right. Interval history: Patient presently without, chest pain, shortness of breath, fever nausea chills, With persistent foot ulcer right side #5 MTPJ with associated cellulitis and worsening of the ulceration. Objective - Vital Signs Vital Signs: Vital Signs Temp Pulse Resp BP Pulse Ox 06/07/17 07:38 97.8 F 91 16 137/82 98 06/07/17 04:37 97.6 F 69 14 102/60 95 06/07/17 00:17 97.9 F 90 14 101/62 93 06/06/17 21:06 98.4 F 88 14 152/83 98 06/06/17 15:23 98.0 F 68 18 124/46 96 Intake and Output 06/06/17 06/07/17 06/07/17 23:59 07:59 15:59 Intake Total 340 / 340 120 / 120 Output Total 0 / 0 0 / 0 Balance 340 / 340 120 / 120 Intake: IV Fluids 100 / 100 0 / 0 Zosyn 3.375 GM In 100 / 100 0 / 0 Dextrose 5% (Minibag+) 100 ML 100 ML @ 25 mls/hr IVPB Q8HR [facility] Rx#: [id number] Oral 240 / 240 120 / 120 Output: Urine 0 / 0 0 / 0 Other: Meal Dinner Percent of Meal Consumed 100% # Voids 1 Weight 174.633 kg Blood Glucose* 158 167 Patient Weight 06/07/17 23:59 Weight 174.633 kg - Exam Exam: Diabetic foot ulcer as measured with surrounding erythema cellulitis superficial skin necrosis penetrating ulcer with probe to bone test positive. - Lab Result Diagrams: 06/06/17 05:17 06/06/17 05:17 Labs: Abnormal lab results ESR 90 mm/hr (0-10) H 06/06/17 14:07 PT 19.8 Seconds (9.4-12.1) H 06/06/17 05:17 APTT 37.8 Seconds (26.0-36.0) H 06/06/17 05:17 Glucose 114 mg/dL (70-99) H 06/06/17 05:17 POC Glucose 167 (58-89) H 06/07/17 08:40 Hemoglobin A1c 6.1 % (-5.6) H 06/06/17 05:17 C-Reactive Protein 141 mg/L (Less than 5) H 06/06/17 14:07 HDL Cholesterol 29 mg/dL (40-59) L 06/06/17 05:17 Consult Discharge Plan - Plan Referrals: Rogers Pederson MD [Primary Care Provider] - 06/13/17 3:30 pm
--- NOTE | 2017-06-07 16:29 | Internal Med Progress Note ---
Date of Encounter: 06/07/17 Time of Encounter: 10:25 - Assessment and plan (1) Cellulitis Current Visit: Yes Status: Acute Assessment and plan: Involving the right lower extremity. Clinically improving. Continue IV antibiotics. Wound cultures from 06/05/17 positive for strep agalactiae Qualifiers: Site of cellulitis: extremity Site of cellulitis of extremity: lower extremity Laterality: right Qualified Code(s): L03.115 - Cellulitis of right lower limb (2) Diabetic foot ulcer Current Visit: Yes Status: Acute Assessment and plan: Plan for debridement, incision and drainage in the OR tomorrow. Will follow culture results. Continue current IV antibiotics. Moderate risk for complications. Podiatry following. Qualifiers: Diabetic foot ulcer location: other Diabetes mellitus type: type 2 Laterality: right Non-pressure ulcer stage: with fat layer exposed Qualified Code(s): E11.621 - Type 2 diabetes mellitus with foot ulcer; L97.512 - Non-pressure chronic ulcer of other part of right foot with fat layer exposed (3) Chronic atrial fibrillation Current Visit: Yes Status: Chronic Assessment and plan: Rate controlled. Will hold Eliquis for planned surgery tomorrow. (4) Diabetes Current Visit: Yes Status: Chronic Assessment and plan: Blood sugars are elevated. We will increase sliding scale coverage. Qualifiers: Diabetes mellitus type: type 2 Diabetes mellitus complication status: with skin complications Diabetes mellitus complication detail: with foot ulcer Diabetes mellitus correction insulin use: with correction use Qualified Code(s) : E11.621 - Type 2 diabetes mellitus with foot ulcer; L97.509 - Non-pressure chronic ulcer of other part of unspecified foot with unspecified severity; Z79.4 - prison (current) use of insulin (5) GERD (gastroesophageal reflux disease) Current Visit: Yes Status: Chronic Assessment and plan: continue PPI Qualifiers: Esophagitis presence: esophagitis presence not specified Qualified Code(s) : K21.9 - Gastro-esophageal reflux disease without esophagitis (6) HTN (hypertension) Current Visit: Yes Status: Chronic Assessment and plan: Well-controlled Qualifiers: Hypertension type: essential hypertension Qualified Code(s): I10 - Essential (primary) hypertension (7) DVT prophylaxis Current Visit: Yes Status: Acute Assessment and plan: On the liquids but this will be held for surgery planned for tomorrow. - Subjective Interval history: Patient is feeling better today with regards to his right lower extremity cellulitis. He feels it is improving and pain is better controlled. No fever chills or night sweats reported - Constitutional Vitals: Temp Pulse Resp BP Pulse Ox 98.1 F 80 16 124/85 95 06/07/17 15:49 06/07/17 15:49 06/07/17 15:49 06/07/17 15:49 06/07/17 15:49 General appearance: Present: cooperative, A&O X 3, morbidly obese, pleasant, no acute distress, answers questions appropriately - Neck Neck exam general surgery: Present: supple, trachea midline. Absent: lymphadenopathy - Respiratory Respiratory exam: Present: CTAB. Absent: accessory muscle use, rales, rhonchi, wheezes - Cardiovascular Cardiovascular exam: Present: RRR, +S1, +S2. Absent: diastolic murmur, gallop, rubs, systolic murmur - GI/Abdominal GI/Abdominal exam: Present: normal bowel sounds, soft, no peritoneal signs. Absent: distended, tenderness - Extremities Exam Extremities exam: Present: warm, radial pulses palpable and symmetrical. Absent : calf tenderness, cyanotic, pedal edema Additional comments: Erythema and swelling of the right lower extremity improving. Right foot ulcer bandaged Internal Medicine: Result - Labs CBC & Chem 7: 06/06/17 05:17 06/06/17 05:17 - ABG Interpretation ABG results: PT/INR, D-dimer PT 19.8 Seconds (9.4-12.1) H 06/06/17 05:17 - Impressions Impressions Foot MRI 06/06/17 13:53 IMPRESSION: 1. Dorsal ulceration laterally, with a rim enhancing, 2.6 cm focal fluid collection seen just deep to that, compatible with an abscess. In addition, there is associated osteomyelitis involving the 5th metatarsal and within the proximal aspect of the small toe, with probable septic arthritis at the 5th metatarsophalangeal joint. D/ / 06/06/2017 20:39:16 Anant Henry MD / Lacey Alvarez Interpreting Provider: Anant Henry MD Consult Discharge Plan - Plan Referrals: Rogers Pederson MD [Primary Care Provider] - 06/13/17 3:30 pm
[2017-06-07] MEDS: Vancomycin 1,250 MG in D5% in Water 250 ML IVPB SCH (18:18)
[2017-06-07] MEDS: tiZANidine 4 MG TABLET PO SCH (21:01)
[2017-06-07] MEDS: Insulin DETEMIR 100 UNIT/ML X5UNITS SQ SCH (21:02)
[2017-06-08] MEDS: Piperacillin/Tazobactam 3.375 GM in D5% in Water (Mini-Bag+) 100 ML IVPB SCH ×3 (00:28→16:06)
[2017-06-08] MEDS: *HR* Morphine 2 MG/ML SYRINGE IVP PRN ×3 (01:12→19:50)
[2017-06-08] MEDS: Vancomycin 1,250 MG in D5% in Water 250 ML IVPB SCH ×2 (06:06→17:59)
[2017-06-08 07:38] LABS: INR 1.4; Prothrombin Time 15.2 Seconds (9.4-12.1)
[2017-06-08] MEDS: Insulin LISPRO 300 UNITS/3 ML VIAL SQ SCH ×5 (07:38→21:50)
[2017-06-08] MEDS: Pantoprazole 40 MG VIAL IVP SCH (07:50)
[2017-06-08] MEDS: Topiramate 25 MG TABLET PO SCH ×2 (07:50→21:49)
[2017-06-08] MEDS: Aspirin Enteric Coated 81 MG Tablet PO SCH (07:50)
[2017-06-08] MEDS: Pregabalin 50 MG CAPSULE PO SCH ×3 (07:50→21:47)
[2017-06-08] MEDS: Bumetanide 1 MG TABLET PO SCH (07:50)
[2017-06-08] MEDS: Multivit/Ca/Min/Fe/FA 1 TAB TABLET PO SCH (07:50)
[2017-06-08] MEDS: Diltiazem SR (12hr) 90 MG CAPSULE PO SCH ×2 (07:50→21:49)
[2017-06-08] MEDS ORDERED: Ketamine *HR* 500 MG/10 ML MDV ONE (08:06)
[2017-06-08] MEDS ORDERED: Propofol 500 MG/50 ML INFUS..BTL ONE (08:06)
[2017-06-08] MEDS ORDERED: Lidocaine -MPF 2% 2 ML VIAL ONE (08:06)
[2017-06-08] MEDS ORDERED: *HR* Midazolam HCl 5 MG/5 ML VIAL IVP ONE (08:06)
--- NOTE | 2017-06-08 08:59 | Anesthesia Evaluation PreOp ---
Date of Encounter: 06/08/17 Time of Encounter: 08:57 - Past History Planned Operation: I&D right foot Cardiac History: HTN, Arrhythmia (atrial fibrillation) Pulmonary History: SENG Dx ANTHROPOLOGY AND ARCHEOLOGY INSTRUCTOR History: Denies Any Significant HX Other Medical History: Diabetes Type II Anesthesia History: Problems (nausea with anesthesia previously) Alcohol Use: none Drug use: none Medications and Allergies Pravastatin Sodium [Pravachol] 20 mg PO HS 08/10/15 [History] Allopurinol [Zyloprim 300 MG] 300 mg PO DAILY 03/23/16 [History] Clindamycin [Cleocin] 450 mg PO TID #63 capsule 06/02/17 [Rx] Insulin Glargine [Lantus] 40 unit SQ HS 06/02/17 [History] Alogliptin Benzoate [Alogliptin] 25 mg PO DAILY 06/05/17 [History] Apixaban [Eliquis] 5 mg PO BID 06/05/17 [History] Aspirin Enteric Coated [Aspirin EC] 162 mg PO DAILY 06/05/17 [History] Bumetanide [Bumex] 1 mg PO DAILY PRN 06/05/17 [History] Cefdinir [Omnicef] 300 mg PO BID 06/05/17 [History] Diltiazem HCl [Diltiazem ER] 180 mg PO BID 06/05/17 [History] Furosemide [Lasix] 40 mg PO DAILY 06/05/17 [History] HYDROcodone/Acet 10/325 mg [[place] 10-325 mg] 1 tab PO Q8H PRN 06/05/17 [History] Metoprolol Tartrate [Lopressor] 50 mg PO BID 06/05/17 [History] Multivitamin [Multi-Day Vitamins] 1 each PO DAILY 06/05/17 [History] Pregabalin [Lyrica] 100 mg PO TID 06/05/17 [History] Testosterone [Testosterone] 1 appl TP DAILY 06/05/17 [History] Tizanidine HCl 4 mg PO HS 06/05/17 [History] Topiramate [Topiramate] 50 mg PO BID 06/05/17 [History] glipiZIDE [Glipizide] 20 mg PO BID 06/05/17 [History] Allergies No Known Allergies Allergy (Verified 06/05/17 14:38) - Meds/Allergy Pre-op Review Medications Reviewed: Yes Allergies Reviewed: Yes Beta Blockers on Current Med List: Yes If Beta Blockers taken, Date/Time (Last Dose taken): 06-08-17 metoprolol 7:50 Anesthesia Results - Labs 06/06/17 05:17 06/06/17 05:17 - Imaging EKG: report reviewed, image reviewed (atrial fibrillation) Anesthesia Exam Last Vital Signs Temp 98.3 F 06/08/17 07:06 Pulse 85 06/08/17 07:06 Resp 16 06/08/17 07:06 BP 165/91 06/08/17 07:06 Pulse Ox 98 06/08/17 07:06 Weight: 174 kg NPO (# of Hours): >> 8 hrs - HEENT Pupil (Motor): Pupils equal, EOMI Mallampati: III Teeth: Normal Oral Opening: Greater than 3 - ANTHROPOLOGY AND ARCHEOLOGY INSTRUCTOR LOC: Oriented ANTHROPOLOGY AND ARCHEOLOGY INSTRUCTOR Motor: Normal RUE, Normal LUE, Normal RLE, Normal LLE, Normal Face - Cardiac Rhythm: Irregular Murmur: None - Pulmonary Breath Sounds: bilateral Clear Anesthesia Assess/Plan ASA Score: 3 (BMI 48, SENG, Atrial fibrillation, HTN) Modified Warner Scale for Level of Consciousness: Cooperative, oriented, and tranquil Anesthetic Plan: MAC Monitoring Plan: Standard Monitors Recovery Plan: PACU
[2017-06-08] MEDS ORDERED: Bupivacaine/Clonidine Syringe 1 EACH SYRINGE ONE (10:24)
--- NOTE | 2017-06-08 11:59 | Orthopedic Operative Note ---
Date of procedure: 06/08/17 Pre-op diagnosis: #1 osteomyelitis fifth metatarsophalangeal joint/foot abscess Post-op diagnosis: same Procedure: 06/08/17 11:53 #1 incision to bone cortex for osteomyelitis #2 resection of #5 metatarsal phalangeal joint/head of metatarsal and base of phalanx #3 placement of wound VAC Implants: None Complications: None Anesthesia: MAC, local Local Anesthetics: 0.25% Sensorcaine HCL SubQ (cc) Surgeon: Jaya Rubin Estimated blood loss (cc): 20 Tourniquet Time (Minutes): 0 Specimen: Bone cultures swab cultures Condition: stable Disposition: floor Procedure in Detail: 06/08/17 11:54 Detail summary of procedure: Patient brought to surgical suite. Sign in procedure performed. Patient transferred to the surgical table and positioned properly safely securely. Right foot elevated on a foam block. A tourniquet was applied but not employed. Right ankle prepped with alcohol 3 times and anesthetic timeout taken.. Modified ankle block carried out with local anesthetic complications. Surgical timeout taken. An abscess/phlegmon was noted in the dorsal aspect of the distal fifth metatarsal right foot and the ulceration which was the original wound on the plantar aspect of the fifth metatarsal was also clinically visible. At that juncture using a [place] elevator and abscess and tunnel was noted from the phlegmon connecting to the plantar ulceration. The oblique orientation of the tunnel was then drawn with a skin scribe. It was approximately 45 degrees to long axis of the fifth metatarsal. #15 scalpel blade was then used to make the incision to bone/ cortex of the 5th metatarsal along the drawn incision line. The tunnel was then opened and debrided accordingly. MRI was positive for osteomyelitis. Fifth metatarso-phalangeal joint was then isolated the level of the periosteum and freed with a [place] elevator the head of the fifth metatarsal was resected/ostectomy complete from dorsal plantar fashion as well as the base of the proximal phalanx. The specimens were sent for culture. The remaining bone was of normal color tissue density in character. The wound was flushed with copious amounts sterile saline forcefully we did not see any evidence of active purulent drainage or loculated abscess at this time. Cultures were taken of the bone swab cultures as well as the bone itself sent for culture. Satisfied the wound was adequately explored a ultrasonic Misonix debrider was used to completely debride the wound and irrigated simultaneously. Satisfied with a completely clean wound the ulcer on the plantar aspect was excised and the skin rotated in such fashion that we were able to close the wound plantarly and then placed sutures loosely along the incision line up to the dorsal aspect with a phlegmon was left open and a wound VAC was then applied according to protocol. No complications encountered as noted blood loss less than 20 mL. Patient was sent to holding room in good condition with vital signs stable. The original incision extended from the dorsal aspect of the distal fifth metatarsal in oblique fashion to the plantar aspect of the fifth MTPJ proximally 7 cm in length. 06/12/17 12:57
[2017-06-08] MEDS ORDERED: Naloxone 0.4 MG/ML INJ IVP PRN (12:20)
[2017-06-08] MEDS ORDERED: Dextrose Gel 15 GM PO PRN ×2 (12:20)
[2017-06-08] MEDS ORDERED: Acetaminophen 325 MG TABLET PO PRN (12:20)
[2017-06-08] MEDS ORDERED: *HR* Dextrose 50 % in Water (Syg) 50 ML SYRINGE IVP PRN (12:20)
[2017-06-08] MEDS ORDERED: D5% in Water 1,000 ML IVC PRN (12:20)
[2017-06-08] MEDS ORDERED: Ondansetron 4 MG/2 ML VIAL IVP PRN (12:20)
--- NOTE | 2017-06-08 16:15 | Internal Med Progress Note ---
Date of Encounter: 06/08/17 Time of Encounter: 16:16 - Assessment and plan (1) Cellulitis Current Visit: Yes Status: Acute Assessment and plan: Resolving. Continue current antibiotics. We will consult infectious disease for antibiotic recommendations in view of osteomyelitis per MRI and surgery. Wound culture growing strep agalactiae. Qualifiers: Site of cellulitis: extremity Site of cellulitis of extremity: lower extremity Laterality: right Qualified Code(s): L03.115 - Cellulitis of right lower limb (2) Diabetic foot ulcer Current Visit: Yes Status: Acute Assessment and plan: With osteomyelitis involving the fifth metatarsal bone. Status post resection of the fifth metatarsal phalangeal joint. Wound VAC in place. Continue IV antibiotics and wound care. Podiatry following. Qualifiers: Diabetic foot ulcer location: other Diabetes mellitus type: type 2 Laterality: right Non-pressure ulcer stage: with fat layer exposed Qualified Code(s): E11.621 - Type 2 diabetes mellitus with foot ulcer; L97.512 - Non-pressure chronic ulcer of other part of right foot with fat layer exposed (3) Chronic atrial fibrillation Current Visit: Yes Status: Chronic Assessment and plan: Rate controlled. Will resume Eliquis later today (4) Diabetes Current Visit: Yes Status: Chronic Assessment and plan: Continue current management with sliding scale insulin, Levemir and Diet. We will increase coverage of sliding scale insulin as patient is no longer nothing by mouth. Qualifiers: Diabetes mellitus type: type 2 Diabetes mellitus complication status: with skin complications Diabetes mellitus complication detail: with foot ulcer Diabetes mellitus group home insulin use: with group home use Qualified Code(s) : E11.621 - Type 2 diabetes mellitus with foot ulcer; L97.509 - Non-pressure chronic ulcer of other part of unspecified foot with unspecified severity; Z79.4 - director long term care (current) use of insulin (5) GERD (gastroesophageal reflux disease) Current Visit: Yes Status: Chronic Assessment and plan: Continue PPI Qualifiers: Esophagitis presence: esophagitis presence not specified Qualified Code(s) : K21.9 - Gastro-esophageal reflux disease without esophagitis (6) HTN (hypertension) Current Visit: Yes Status: Chronic Assessment and plan: Continue metoprolol And Cardizem. Qualifiers: Hypertension type: essential hypertension Qualified Code(s): I10 - Essential (primary) hypertension (7) DVT prophylaxis Current Visit: Yes Status: Acute Assessment and plan: With Eliquis - Subjective Interval history: Patient underwent surgery this morning. Pain so far has remained controlled. Denies any new complaints at this time. No fever reported. - Constitutional Vitals: Temp Pulse Resp BP Pulse Ox 98.7 F 80 16 144/84 94 06/08/17 13:25 06/08/17 13:25 06/08/17 13:25 06/08/17 13:25 06/08/17 13:25 General appearance: Present: cooperative, A&O X 3, morbidly obese, pleasant, no acute distress, answers questions appropriately - Respiratory Respiratory exam: Present: CTAB. Absent: accessory muscle use, rales, rhonchi, wheezes - Cardiovascular Cardiovascular exam: Present: RRR, +S1, +S2. Absent: diastolic murmur, gallop, rubs, systolic murmur - GI/Abdominal GI/Abdominal exam: Present: normal bowel sounds, soft, no peritoneal signs. Absent: distended, tenderness - Extremities Exam Extremities exam: Present: tenderness, warm, radial pulses palpable and symmetrical. Absent: calf tenderness, cyanotic, pedal edema Additional comments: Erythema in the right lower leg has mostly subsided. Right foot currently bandaged with wound VAC in place Internal Medicine: Result - Labs CBC & Chem 7: 06/06/17 05:17 06/06/17 05:17 - ABG Interpretation ABG results: PT/INR, D-dimer PT 15.2 Seconds (9.4-12.1) H 06/08/17 06:44 Consult Discharge Plan - Plan Referrals: Rogers Pederson MD [Primary Care Provider] - 06/13/17 3:30 pm
[2017-06-08] MEDS ORDERED: Insulin LISPRO 300 UNITS/3 ML VIAL SQ SCH ×2 (16:30→21:00)
[2017-06-08] MEDS: *HR* HYDROcodone/Acet 5/325 mg TABLET PO PRN (16:31)
[2017-06-08] MEDS: tiZANidine 4 MG TABLET PO SCH (21:50)
[2017-06-08] MEDS: APIXABAN 5 MG TABLET PO SCH (21:50)
[2017-06-08] MEDS: Insulin DETEMIR 100 UNIT/ML X5UNITS SQ SCH (21:51)
[2017-06-09] MEDS: *HR* HYDROcodone/Acet 5/325 mg TABLET PO PRN ×3 (00:22→16:42)
[2017-06-09] MEDS: Piperacillin/Tazobactam 3.375 GM in D5% in Water (Mini-Bag+) 100 ML IVPB SCH ×4 (00:22→23:08)
[2017-06-09] MEDS: *HR* Morphine 2 MG/ML SYRINGE IVP PRN ×2 (03:26→23:11)
[2017-06-09] MEDS: Vancomycin 1,250 MG in D5% in Water 250 ML IVPB SCH ×2 (05:44→17:26)
[2017-06-09 05:54] LABS: BUN/Creatinine Ratio 13 (6-26); Blood Urea Nitrogen 13 mg/dL (8-26); Calcium 9.6 mg/dL (8.6-10.8); Carbon Dioxide 27 mEq/L (19-29); Chloride 110 mEq/L (98-109); Glucose 125 mg/dL (70-99); Osmolality,Calculated 298 (280-300); Sodium 143 mEq/L (136-145); eGFR For African Americans > 60 (> 60); eGFR For Non-African Americans > 60 (> 60)
[2017-06-09 05:56] LABS: Basophils % 0.5 %; Eosinophils # 0.5 K/mcL (0.0-0.6); Eosinophils % 5.5 %; Hematocrit 40.3 % (37.5-50.1); Hemoglobin 13.6 g/dL (12.9-16.9); Immature Granulocytes % 0.7 % (0-4); Lymphocytes # 2.2 K/mcL (0.6-4.6); Lymphocytes % 27.3 %; Mean Corpuscular HGB Conc 33.7 g/dL (31.6-35.5); Mean Corpuscular Hemoglobin 29.4 pg (28.0-33.3); Mean Platelet Volume 9.6 fL (9.4-12.4); Monocytes # 0.5 K/mcL (0.0-1.3); Monocytes % 6.5 %; Neutrophils # 4.9 K/mcL (1.6-8.9); Platelet Count 254 K/mcL (140-400); Potassium 4.4 mEq/L (3.5-4.5); Red Blood Count 4.63 M/mcL (4.19-5.50); Red Cell Distribution Width 14.2 % (11.5-14.5); Segmented Neutrophils % 59.5 %
[2017-06-09] MEDS: Topiramate 25 MG TABLET PO SCH ×2 (08:22→23:06)
[2017-06-09] MEDS: Bumetanide 1 MG TABLET PO SCH (08:22)
[2017-06-09] MEDS: Pregabalin 50 MG CAPSULE PO SCH ×3 (08:22→23:07)
[2017-06-09] MEDS: Aspirin Enteric Coated 81 MG Tablet PO SCH (08:22)
[2017-06-09] MEDS: Insulin LISPRO 300 UNITS/3 ML VIAL SQ SCH ×7 (08:23→23:07)
[2017-06-09] MEDS: Diltiazem SR (12hr) 90 MG CAPSULE PO SCH ×2 (08:23→23:06)
[2017-06-09] MEDS: Multivit/Ca/Min/Fe/FA 1 TAB TABLET PO SCH (08:23)
[2017-06-09] MEDS: APIXABAN 5 MG TABLET PO SCH ×2 (08:23→23:07)
[2017-06-09] MEDS ORDERED: Pantoprazole 40 MG VIAL IVP SCH (09:00)
--- NOTE | 2017-06-09 11:31 | Infectious Disease Consult ---
Date of Encounter: 06/09/17 Time of Encounter: 11:26 Assessment and Plan (1) Osteomyelitis Status: Acute Assessment and plan: Location: Right foot, 5th metatarsal and proximal 5th toe. Causative organism GBS per swab culture, but concern for polymicrobial infection given the patient's previous wound culture results (Citrobacter braakii 06/06/17, MSSA 05/11/17). Failed outpatient oral antibiotic therapy (clindamycin). MRI completed 06/06/17 showed findings consistent with OM of the 5th metatarsal and proximal 5th toe. Additionally, the wound was noted to probe to bone. ESR 90, CRP 141. Podiatry consulted. Status post I & D with resection of the 5th metatarsal and wound VAC application 06/08/[address] Rubin. Intra-operative report reviewed. Intra-op cultures obtained and are pending. Await intra-op cultures. Will likely be able to de-escalate to Rocephin 2 grams IV daily when ready for discharge (based on previous cultures and sensitivities) . Continue Vancomycin IV for now. Pharmacy to dose. Goal trough ~15. Continue Zosyn 3.375 grams IV Q8H for now. Will de-escalate antibiotics if/when able based on intra-op cultures. Duration of treatment depends on the clinical picture, but likely 6 weeks of IV antibiotics followed by a course of oral antibiotics. Discussed the risks, benefits, and alternatives to IV antibiotic therapy with the patient at length. He was given adequate time to answer questions and he agrees to proceed with IV antibiotic therapy. learning services coordinator consulted for discharge planning. EPIV placed 06/09/17. Monitor renal function and for drug toxicity and dose-adjust antibiotics. Get weekly CBC, BUN/Cr, ESR, and CRP every Monday for the duration of treatment. Weekly EPIV care per protocol. Follow up with ID 06/26/17 at 0830. Qualifiers: Osteomyelitis type: acute hematogenous Osteomyelitis location: foot Laterality: right Qualified Code(s): M86.071 - Acute hematogenous osteomyelitis, right ankle and foot (2) Cellulitis Status: Acute Assessment and plan: Location: Right foot. Causative organism unclear at this time. Improved. Continue antibiotics as above. Qualifiers: Site of cellulitis: extremity Site of cellulitis of extremity: lower extremity Laterality: right Qualified Code(s): L03.115 - Cellulitis of right lower limb (3) Diabetic foot ulcer Status: Acute Assessment and plan: Likely secondary to offloading and/or poor-fitting shoes. Continue wound care as outlined by the podiatry team. Qualifiers: Diabetic foot ulcer location: unspecified part of foot Diabetes mellitus type: type 2 Laterality: right Non-pressure ulcer stage: limited to breakdown of skin Qualified Code(s): E11.621 - Type 2 diabetes mellitus with foot ulcer; L97.511 - Non-pressure chronic ulcer of other part of right foot limited to breakdown of skin (4) Chronic atrial fibrillation Status: Chronic (5) Diabetes Status: Chronic Assessment and plan: Hgb A1C 6.1%. Continue aggressive glucose monitoring and control to promote wound healing and prevent re-infection. Qualifiers: Diabetes mellitus type: type 2 Diabetes mellitus complication status: with skin complications Diabetes mellitus complication detail: with foot ulcer Diabetes mellitus [facility] insulin use: with termite exterminator helper use Qualified Code(s) : E11.621 - Type 2 diabetes mellitus with foot ulcer; L97.509 - Non-pressure chronic ulcer of other part of unspecified foot with unspecified severity; Z79.4 - ad terminal makeup operator (current) use of insulin (6) HLD (hyperlipidemia) Status: Chronic Qualifiers: Hyperlipidemia type: pure hypercholesterolemia Qualified Code(s): E78.00 - Pure hypercholesterolemia, unspecified; E78.0 - Pure hypercholesterolemia (7) HTN (hypertension) Status: Chronic Qualifiers: Hypertension type: essential hypertension Qualified Code(s): I10 - Essential (primary) hypertension Infectious Disease HPI - Data of Consult Patient: new to practice Consult date: 06/09/17 Requesting Physician: Korey Carlton MD Primary Care Provider: Rogers Pederson MD - Consult Narrative Reason for consult: Osteomyelitis right foot History of present illness: Mr. Rausch is a 56 year old male with a past medical history of A. fib, diabetes, hypertension, hyperlipidemia, and see Fior. He was admitted to the hospital June 05 for cellulitis and diabetic foot ulcer. We are consulted June 09 for further evaluation and treatment recommendations regarding osteo-myelitis of the right foot. The patient's a 56-year-old male with past medical history as stated above. The patient presented to the emergency department with complaints of increasing redness and swelling of the right foot. The patient has a chronic diabetic foot ulcer that he states is been there for about 10 months for which she has been seen in wound clinic at [facility]. He states he was seen in the emergency department 5 days prior to admission and was put on an oral course of clindamycin. He states that the swelling and pain continued and he was seen in wound care and advised him to the emergency department. Upon arrival, the patient was mildly tachycardic, but was otherwise hemodynamically stable. Laboratory studies revealed a normal white blood cell count. Lactic acid was normal. X-ray of the right foot and ankle was negative for any abscess or acute osseous abnormality. Superficial wound culture was obtained that grew out group B strep. Blood cultures were obtained 2 setsand are currently no growth to date. Patient will start empiric Rolf Zosyn and vancomycin was admitted to the hospital for further evaluation and treatment. Since admission, the patient has remained afebrile and hemodynamically stable. Podiatry was consulted and the ulcer was noted to probe to the bone. MRI was completed that showed a 2.6 and regular fluid collection consistent with abscess as well as fifth metatarsal ostomy colitis and proximal small toe osteomyelitis. There were also findings consistent with septic arthritis of the fifth MTP joints. The patient has undergone a incision and debridement of the right foot resection of the fifth metatarsal and wound VAC application on June [address] Rubin. Intraoperative cultures were obtained and are pending. Of note, previous wound culture obtained back on June 02 grew out Citrobacter and group B strep. Prior to that, wound culture grew out MSSA and group B strep as well. During my exam today, the patient states overall he feels well. He denies any fevers or chills or rigors. He denies any headache, weakness, or dizziness. He reports chronic neck and back pain than his baseline. He denies any chest pain, shortness of breath, or cough. He reports one episode of nausea earlier this week that he attributes to the oral antibiotics he was taking, and denies any since then. He denies any vomiting or diarrhea or constipation. He denies any abdominal pain and states his appetite is been okay. He reports he checks his blood sugars at home and it has been running anywhere from 115 to 150. He complains of pain to the right foot. He also endorses swelling to the right foot and up the leg. He also reports some mild numbness to the right lower extremity extending up to the hip since the onset of the swelling as well. He denies any streaking up the leg or erythema that progress past the level of the ankle. He states that overall his pain is improved since surgery, but he is still having some. Currently, the patient is on IV vancomycin and IV Zosyn. We' ve asked to evaluate and make further recommendations. CC: Korey Carlton MD Past Med Surg Social Fam HX - Past Medical History Attestation: Yes The following information was validated with the patient. Source: patient, old records reviewed, nursing notes reviewed Medical history: arthritis, atrial fibrillation, diabetes, GERD, hyperlipidemia , hypertension, osteoporosis, renal disease, other Psychiatric history: depression - Past Surgical History Surgical History: orthopedic, other (2 lower back, neck, and rotator cuff), other - Social History Smoking Status: Never smoker Smokeless Tobacco Status: No Alcohol use: none Drug use: none Occupational status: previously employed Current living situation: Home - Independent Activity Level: Independent ambulation Recent Out of Country Travel Within the Last 8 Weeks: No Exposure or Possible Exposure to Illness During Travel: No - Family History Father Race: Family Member Ethnicity: Non- Living Status: Age at : 72 Cause of : SD Hx Family Cardiac Disorders: Yes (SD, CHF) Hx Family Endocrine Disorder: Yes (Diabetes) Mother Race: Family Member Ethnicity: Non- Living Status: Age at : 61 Cause of : SD Hx Family Cardiac Disorders: Yes (CHF, SD) Hx Family Endocrine Disorder: Yes (DM) Brother Race: Family Member Ethnicity: Non- Living Status: Still Living Hx Family Endocrine Disorder: Yes (Thyroid disease, DM) Infectious Disease-CN:Meds Pravastatin Sodium [Pravachol] 20 mg PO HS 08/10/15 [History] Allopurinol [Zyloprim 300 MG] 300 mg PO DAILY 03/23/16 [History] Clindamycin [Cleocin] 450 mg PO TID #63 capsule 06/02/17 [Rx] Insulin Glargine [Lantus] 40 unit SQ HS 06/02/17 [History] Alogliptin Benzoate [Alogliptin] 25 mg PO DAILY 06/05/17 [History] Apixaban [Eliquis] 5 mg PO BID 06/05/17 [History] Aspirin Enteric Coated [Aspirin EC] 162 mg PO DAILY 06/05/17 [History] Bumetanide [Bumex] 1 mg PO DAILY PRN 06/05/17 [History] Cefdinir [Omnicef] 300 mg PO BID 06/05/17 [History] Diltiazem HCl [Diltiazem ER] 180 mg PO BID 06/05/17 [History] Furosemide [Lasix] 40 mg PO DAILY 06/05/17 [History] HYDROcodone/Acet 10/325 mg [[place] 10-325 mg] 1 tab PO Q8H PRN 06/05/17 [History] Metoprolol Tartrate [Lopressor] 50 mg PO BID 06/05/17 [History] Multivitamin [Multi-Day Vitamins] 1 each PO DAILY 06/05/17 [History] Pregabalin [Lyrica] 100 mg PO TID 06/05/17 [History] Testosterone [Testosterone] 1 appl TP DAILY 06/05/17 [History] Tizanidine HCl 4 mg PO HS 06/05/17 [History] Topiramate [Topiramate] 50 mg PO BID 06/05/17 [History] glipiZIDE [Glipizide] 20 mg PO BID 06/05/17 [History] Allergies No Known Allergies Allergy (Verified 06/05/17 14:38) All systems: reviewed and no additional remarkable complaints except as stated Exam - Constitutional Vitals: Temp Pulse Resp BP Pulse Ox 98.0 F 75 18 118/71 95 06/09/17 11:21 06/09/17 11:21 06/09/17 11:21 06/09/17 11:21 06/09/17 11:21 General appearance: cooperative, morbidly obese, no acute distress - Head Head exam: Present: atraumatic, normal inspection, normocephalic - Eye Eye exam: Present: EOMI, normal appearance, PERRL Pupils: Present: normal accommodation - ENT ENT exam: Present: mucous membranes moist - Neck Neck exam: Present: normal inspection - Respiratory Respiratory exam: Present: CTAB. Absent: rales, respiratory distress, rhonchi, wheezes - Cardiovascular Cardiovascular exam: Present: irregular rhythm. Absent: tachycardia - GI/Abdominal GI/Abdominal exam: Present: distended (obese), normal bowel sounds, soft. Absent: tenderness - Extremities Exam Extremities exam: Present: pedal edema (2+ RLE). Absent: joint swelling, tenderness Additional comments: Right foot wound VAC noted to the lateral aspect with sponge well-compressed. Maceration noted to the skin surrounding the surgical site. Sutures remain intact to the plantar aspect of the foot. Small amount of dark red drainage noted in the Wound VAC canister. - Neurological Exam Neurological exam: Present: alert, oriented X3, no focal deficits - Psychiatric Psychiatric exam: Present: normal affect, normal mood - Skin Skin exam: Present: dry, intact, normal color, warm - Additional findings Additional findings: Powerglide EPIV noted to the LUE with transparent dressing C/D/I. Infectious Disease CN: Results - Labs CBC & Chem 7: 06/09/17 05:03 06/09/17 05:03 Cultures: Cultures 06/05/17 18:27 Wound Culture - Final Right Foot Strep agalactiae - (Group B) 06/05/17 15:56 Blood Culture - Preliminary Peripheral Venipuncture No growth. 06/05/17 15:56 Blood Culture - Preliminary Peripheral Venipuncture No growth. Consult Discharge Plan - Plan Referrals: Rogers Pederson MD [Primary Care Provider] - 06/13/17 3:30 pm Becca Dove CNP [Advanced Practice Nurse] - 06/26/17 8:30 am
--- NOTE | 2017-06-09 13:22 | Internal Med Progress Note ---
Date of Encounter: 06/09/17 Time of Encounter: 09:50 - Assessment and plan (1) Cellulitis Current Visit: Yes Status: Acute Assessment and plan: Cellulitis is resolving. Surgical wound appears clean. Healing well. Qualifiers: Site of cellulitis: extremity Site of cellulitis of extremity: lower extremity Laterality: right Qualified Code(s): L03.115 - Cellulitis of right lower limb (2) Diabetic foot ulcer Current Visit: Yes Status: Acute Assessment and plan: With osteomyelitis related to diabetes. Continue IV antibiotics. Evaluated by infectious diseases and recommended 6 weeks of IV antibiotics. Recommend waiting for final cultures. Patient will most likely be discharged on IV Rocephin based on initial wound culture results if these cultures are negative. Qualifiers: Diabetic foot ulcer location: other Diabetes mellitus type: type 2 Laterality: right Non-pressure ulcer stage: with fat layer exposed Qualified Code(s): E11.621 - Type 2 diabetes mellitus with foot ulcer; L97.512 - Non-pressure chronic ulcer of other part of right foot with fat layer exposed (3) Chronic atrial fibrillation Current Visit: Yes Status: Chronic Assessment and plan: Rate controlled. Continue Eliquis (4) Diabetes Current Visit: Yes Status: Chronic Assessment and plan: Fairly controlled. Continue current insulin regimen. Qualifiers: Diabetes mellitus type: type 2 Diabetes mellitus complication status: with skin complications Diabetes mellitus complication detail: with foot ulcer Diabetes mellitus director long term care insulin use: with [facility] use Qualified Code(s) : E11.621 - Type 2 diabetes mellitus with foot ulcer; L97.509 - Non-pressure chronic ulcer of other part of unspecified foot with unspecified severity; Z79.4 - director long term care (current) use of insulin (5) GERD (gastroesophageal reflux disease) Current Visit: Yes Status: Chronic Assessment and plan: On Prilosec Qualifiers: Esophagitis presence: esophagitis presence not specified Qualified Code(s) : K21.9 - Gastro-esophageal reflux disease without esophagitis (6) HTN (hypertension) Current Visit: Yes Status: Chronic Assessment and plan: Well-controlled Qualifiers: Hypertension type: essential hypertension Qualified Code(s): I10 - Essential (primary) hypertension (7) DVT prophylaxis Current Visit: Yes Status: Acute - Subjective Interval history: Patient complains of some pain in his right foot but overall pain level has decreased since surgery. No fever or chills reported. No other new complaints at this time. Tolerating diet well. - Constitutional Vitals: Temp Pulse Resp BP Pulse Ox 98.0 F 75 18 118/71 95 06/09/17 11:21 06/09/17 11:21 06/09/17 11:21 06/09/17 11:21 06/09/17 11:21 General appearance: Present: cooperative, A&O X 3, morbidly obese, pleasant, no acute distress, answers questions appropriately - Neck Neck exam general surgery: Present: supple, trachea midline. Absent: lymphadenopathy - Respiratory Respiratory exam: Present: CTAB. Absent: accessory muscle use, rales, rhonchi, wheezes - Cardiovascular Cardiovascular exam: Present: RRR, +S1, +S2. Absent: diastolic murmur, gallop, rubs, systolic murmur - GI/Abdominal GI/Abdominal exam: Present: normal bowel sounds, soft, no peritoneal signs. Absent: distended, tenderness - Extremities Exam Extremities exam: Present: warm, radial pulses palpable and symmetrical. Absent : calf tenderness, cyanotic, pedal edema - Neurological Exam Neurological exam: Present: alert, oriented X3, no focal deficits. Absent: speech deficit - Skin Skin exam: Present: dry, intact Internal Medicine: Result - Labs CBC & Chem 7: 06/09/17 05:03 06/09/17 05:03 Labs: Short CBC 06/09/17 Range/Units 05:03 WBC 8.2 (4.3-11.1) K/mcL Hgb 13.6 (12.9-16.9) g/dL Hct 40.3 (37.5-50.1) % Plt Count 254 (140-400) K/mcL Neutrophils # 4.9 (1.6-8.9) K/mcL BMP 06/09/17 05:03 Sodium 143 Potassium 4.4 Chloride 110 H Carbon Dioxide 27 BUN 13 Creatinine 1.04 Glucose 125 H Calcium 9.6 - ABG Interpretation ABG results: PT/INR, D-dimer PT 15.2 Seconds (9.4-12.1) H 06/08/17 06:44 - Impressions Impressions Foot X-Ray 06/09/17 10:29 IMPRESSION: Status post partial resection of the 5th digit with no acute abnormality. D/ /09/2017 11:50:24 Jorge L Guzmán MD / sj Interpreting Provider: Jorge L Guzmán MD Consult Discharge Plan - Plan Referrals: Becca Dove CNP [Advanced Practice Nurse] - 06/26/17 8:30 am Rogers Pederson MD [Primary Care Provider] - 06/13/17 3:30 pm Prescriptions: cefTRIAXone [Rocephin] 2,000 mg IVPB DAILY #45 vial
[2017-06-09] MEDS: tiZANidine 4 MG TABLET PO SCH (23:07)
[2017-06-09] MEDS: Insulin DETEMIR 100 UNIT/ML X5UNITS SQ SCH (23:11)
[2017-06-10] MEDS: *HR* Morphine 2 MG/ML SYRINGE IVP PRN ×5 (03:53→21:23)
[2017-06-10] MEDS: Vancomycin 1,250 MG in D5% in Water 250 ML IVPB SCH ×2 (06:12→18:04)
[2017-06-10] MEDS: Piperacillin/Tazobactam 3.375 GM in D5% in Water (Mini-Bag+) 100 ML IVPB SCH ×2 (08:24→16:38)
[2017-06-10] MEDS: Pregabalin 50 MG CAPSULE PO SCH ×3 (08:28→21:26)
[2017-06-10] MEDS: Bumetanide 1 MG TABLET PO SCH (08:28)
[2017-06-10] MEDS: APIXABAN 5 MG TABLET PO SCH ×2 (08:29→21:26)
[2017-06-10] MEDS: Multivit/Ca/Min/Fe/FA 1 TAB TABLET PO SCH (08:29)
[2017-06-10] MEDS: Topiramate 25 MG TABLET PO SCH ×2 (08:29→21:27)
[2017-06-10] MEDS: Aspirin Enteric Coated 81 MG Tablet PO SCH (08:29)
[2017-06-10] MEDS: Diltiazem SR (12hr) 90 MG CAPSULE PO SCH ×2 (08:29→21:27)
[2017-06-10] MEDS: Insulin LISPRO 300 UNITS/3 ML VIAL SQ SCH ×7 (08:31→22:21)
--- NOTE | 2017-06-10 11:05 | Internal Med Progress Note ---
Date of Encounter: 06/10/17 Time of Encounter: 09:50 - Assessment and plan (1) Diabetic foot ulcer Current Visit: Yes Status: Acute Assessment and plan: With osteomyelitis status post surgery postop day. Doing well postprocedure. Continue IV antibiotics. Wound cultures from surgery are negative so far. If they remain negative tomorrow, patient will be discharged home on Rocephin. Patient wants to come to the hospital daily to get IV antibiotics. Will ask case management to look into this for discharge planning. Qualifiers: Diabetic foot ulcer location: other Diabetes mellitus type: type 2 Laterality: right Non-pressure ulcer stage: with fat layer exposed Qualified Code(s): E11.621 - Type 2 diabetes mellitus with foot ulcer; L97.512 - Non-pressure chronic ulcer of other part of right foot with fat layer exposed (2) Cellulitis Current Visit: Yes Status: Resolved Assessment and plan: Cellulitis has mostly resolved. Will complete antibiotic course per infectious disease recommendations for diabetic foot ulcer with osteomyelitis. Qualifiers: Site of cellulitis: extremity Site of cellulitis of extremity: lower extremity Laterality: right Qualified Code(s): L03.115 - Cellulitis of right lower limb (3) Chronic atrial fibrillation Current Visit: Yes Status: Chronic Assessment and plan: Rate controlled. On Eliquis for anticoagulation (4) Diabetes Current Visit: Yes Status: Chronic Qualifiers: Diabetes mellitus type: type 2 Diabetes mellitus complication status: with skin complications Diabetes mellitus complication detail: with foot ulcer Diabetes mellitus fpc insulin use: with fpc use Qualified Code(s) : E11.621 - Type 2 diabetes mellitus with foot ulcer; L97.509 - Non-pressure chronic ulcer of other part of unspecified foot with unspecified severity; Z79.4 - half-way (current) use of insulin (5) GERD (gastroesophageal reflux disease) Current Visit: Yes Status: Chronic Assessment and plan: Continue Prilosec Qualifiers: Esophagitis presence: esophagitis presence not specified Qualified Code(s) : K21.9 - Gastro-esophageal reflux disease without esophagitis (6) HTN (hypertension) Current Visit: Yes Status: Chronic Assessment and plan: Blood pressure is well controlled Qualifiers: Hypertension type: essential hypertension Qualified Code(s): I10 - Essential (primary) hypertension (7) DVT prophylaxis Current Visit: Yes Status: Acute - Subjective Interval history: Patient is awake and alert. Pain is well controlled in his right foot. No new complaints at this time. Tolerating diet well. - Constitutional Vitals: Temp Pulse Resp BP Pulse Ox 97.9 F 76 17 113/73 96 06/10/17 06:33 06/10/17 06:33 06/10/17 06:33 06/10/17 06:33 06/10/17 06:33 General appearance: Present: cooperative, A&O X 3, morbidly obese, pleasant, no acute distress, answers questions appropriately - Respiratory Respiratory exam: Present: CTAB. Absent: accessory muscle use, rales, rhonchi, wheezes - Cardiovascular Cardiovascular exam: Present: RRR, +S1, +S2. Absent: diastolic murmur, gallop, rubs, systolic murmur - GI/Abdominal GI/Abdominal exam: Present: normal bowel sounds, soft, no peritoneal signs. Absent: distended, tenderness - Extremities Exam Extremities exam: Present: warm, radial pulses palpable and symmetrical. Absent : calf tenderness, cyanotic, pedal edema Additional comments: Erythema of right leg has subsided completely. Right foot is currently bandaged. - Neurological Exam Neurological exam: Present: alert, oriented X3, no focal deficits. Absent: facial droop, speech deficit Internal Medicine: Result - Labs CBC & Chem 7: 06/09/17 05:03 06/09/17 05:03 - ABG Interpretation ABG results: PT/INR, D-dimer PT 15.2 Seconds (9.4-12.1) H 06/08/17 06:44 - Impressions Impressions Foot X-Ray 06/09/17 10:29 IMPRESSION: Status post partial resection of the 5th digit with no acute abnormality. D/ /09/2017 11:50:24 Jorge L Guzmán MD / sj Interpreting Provider: Jorge L Guzmán MD Consult Discharge Plan - Plan Referrals: Becca Dove CNP [Advanced Practice Nurse] - 06/26/17 8:30 am Rogers Pederson MD [Primary Care Provider] - 06/13/17 3:30 pm Prescriptions: cefTRIAXone [Rocephin] 2,000 mg IVPB DAILY #45 vial
[2017-06-10] MEDS: tiZANidine 4 MG TABLET PO SCH (21:26)
[2017-06-10] MEDS: Insulin DETEMIR 100 UNIT/ML X5UNITS SQ SCH (21:40)
--- NOTE | 2017-06-10 22:10 | Podiatry Progress Note ---
Date of Encounter: 06/10/17 Time of Encounter: 22:09 - Assessment and Plan (1) Diabetic foot ulcer Current Visit: Yes Status: Acute Continue prior treatment plan with no changes. Qualifiers: Diabetic foot ulcer location: unspecified part of foot Diabetes mellitus type: type 2 Laterality: right Non-pressure ulcer stage: limited to breakdown of skin Qualified Code(s): E11.621 - Type 2 diabetes mellitus with foot ulcer; L97.511 - Non-pressure chronic ulcer of other part of right foot limited to breakdown of skin Subjective Principal diagnosis: Diabetic foot ulcer with infection right. Interval history: Patient relates no new changes Objective - Vital Signs Vital Signs: Vital Signs Temp Pulse Resp BP Pulse Ox 06/10/17 19:34 98.3 F 82 18 143/77 96 06/10/17 15:20 97.5 F L 73 18 138/86 98 06/10/17 11:58 98.3 F 62 17 103/65 93 06/10/17 06:33 97.9 F 76 17 113/73 96 06/10/17 04:34 97.3 F L 75 18 108/65 96 06/10/17 00:08 98.2 F 84 18 124/75 97 Intake and Output 06/10/17 06/10/17 06/10/17 07:59 15:59 23:59 Intake Total 100 / 100 1070 / 1070 590 / 590 Output Total 0 / 0 200 / 200 0 / 0 Balance 100 / 100 870 / 870 590 / 590 Intake: IV Fluids 100 / 100 350 / 350 350 / 350 Zosyn 3.375 GM In 100 / 100 100 / 100 100 / 100 Dextrose 5% (Minibag+) 100 ML 100 ML @ 25 mls/hr IVPB Q8HR [facility] Rx#: [id number] Vancocin 1,250 MG In 250 / 250 250 / 250 Dextrose 5% 250 ML @ 166. 67 mls/hr IVPB Q12H [facility] Rx#:[id number] Oral 0 / 0 720 / 720 240 / 240 Output: Urine 0 / 0 200 / 200 0 / 0 Other: Meal Lunch Dinner Percent of Meal Consumed 100% 100% Stool Size Small Stool Consistency loose soft Stool Color Brown # Bowel Movements 0 0 Weight 173.2 kg Blood Glucose* 173 164 167 Patient Weight 06/10/17 23:59 Weight 173.2 kg - Exam Exam: The site is healing within normal limits. Capillary fill time intact to the digits. Dressings are intact with minimal strike through. - Lab Result Diagrams: 06/09/17 05:03 06/09/17 05:03 Labs: Abnormal lab results ESR 90 mm/hr (0-10) H 06/06/17 14:07 PT 15.2 Seconds (9.4-12.1) H 06/08/17 06:44 APTT 37.8 Seconds (26.0-36.0) H 06/06/17 05:17 Chloride 110 mEq/L (98-109) H 06/09/17 05:03 Glucose 125 mg/dL (70-99) H 06/09/17 05:03 POC Glucose 167 (58-89) H 06/10/17 20:57 Hemoglobin A1c 6.1 % (-5.6) H 06/06/17 05:17 C-Reactive Protein 141 mg/L (Less than 5) H 06/06/17 14:07 HDL Cholesterol 29 mg/dL (40-59) L 06/06/17 05:17 Microbiology, Last 48 Hours 06/08/17 11:05 Wound Culture - Final Right Foot Strep agalactiae - (Group B) Consult Discharge Plan - Plan Referrals: Becca Dove CNP [Advanced Practice Nurse] - 06/26/17 8:30 am Rogers Pederson MD [Primary Care Provider] - 06/13/17 3:30 pm Prescriptions: cefTRIAXone [Rocephin] 2,000 mg IVPB DAILY #45 vial
[2017-06-11] MEDS: Piperacillin/Tazobactam 3.375 GM in D5% in Water (Mini-Bag+) 100 ML IVPB SCH ×2 (00:44→08:27)
[2017-06-11] MEDS: *HR* Morphine 2 MG/ML SYRINGE IVP PRN ×5 (01:14→20:46)
[2017-06-11] MEDS: Vancomycin 1,250 MG in D5% in Water 250 ML IVPB SCH (06:26)
[2017-06-11] MEDS: Insulin LISPRO 300 UNITS/3 ML VIAL SQ SCH ×7 (08:25→20:54)
[2017-06-11] MEDS: Multivit/Ca/Min/Fe/FA 1 TAB TABLET PO SCH (08:26)
[2017-06-11] MEDS: APIXABAN 5 MG TABLET PO SCH ×2 (08:26→20:42)
[2017-06-11] MEDS: Diltiazem SR (12hr) 90 MG CAPSULE PO SCH ×2 (08:26→20:42)
[2017-06-11] MEDS: Topiramate 25 MG TABLET PO SCH ×2 (08:26→20:42)
[2017-06-11] MEDS: Pregabalin 50 MG CAPSULE PO SCH ×3 (08:26→20:43)
[2017-06-11] MEDS: Bumetanide 1 MG TABLET PO SCH (08:27)
[2017-06-11] MEDS: Aspirin Enteric Coated 81 MG Tablet PO SCH (08:27)
--- NOTE | 2017-06-11 14:33 | Internal Med Progress Note ---
Date of Encounter: 06/11/17 Time of Encounter: 14:28 - Assessment and plan (1) Diabetic foot ulcer Current Visit: Yes Status: Acute Assessment and plan: Wound culture from surgery growing group B strep. We will de-escalate antibiotics and start IV Rocephin. conduit worker making arrangements for outpatient antibiotics. Patient will need 4-6 weeks of IV antibiotics per infectious disease recommendations. Qualifiers: Diabetic foot ulcer location: other Diabetes mellitus type: type 2 Laterality: right Non-pressure ulcer stage: with fat layer exposed Qualified Code(s): E11.621 - Type 2 diabetes mellitus with foot ulcer; L97.512 - Non-pressure chronic ulcer of other part of right foot with fat layer exposed (2) Cellulitis Current Visit: Yes Status: Resolved Qualifiers: Site of cellulitis: extremity Site of cellulitis of extremity: lower extremity Laterality: right Qualified Code(s): L03.115 - Cellulitis of right lower limb (3) Chronic atrial fibrillation Current Visit: Yes Status: Chronic Assessment and plan: Rate controlled. On Eliquis for anticoagulation (4) Diabetes Current Visit: Yes Status: Chronic Assessment and plan: Continue insulin regimen. We will increase Levemir dosage Qualifiers: Diabetes mellitus type: type 2 Diabetes mellitus complication status: with skin complications Diabetes mellitus complication detail: with foot ulcer Diabetes mellitus intermediate insulin use: with supervisor intermediates use Qualified Code(s) : E11.621 - Type 2 diabetes mellitus with foot ulcer; L97.509 - Non-pressure chronic ulcer of other part of unspecified foot with unspecified severity; Z79.4 - USP (current) use of insulin (5) GERD (gastroesophageal reflux disease) Current Visit: Yes Status: Chronic Assessment and plan: Continue omeprazole Qualifiers: Esophagitis presence: esophagitis presence not specified Qualified Code(s) : K21.9 - Gastro-esophageal reflux disease without esophagitis (6) HTN (hypertension) Current Visit: Yes Status: Chronic Assessment and plan: Blood pressure is well controlled Qualifiers: Hypertension type: essential hypertension Qualified Code(s): I10 - Essential (primary) hypertension (7) DVT prophylaxis Current Visit: Yes Status: Acute - Subjective Interval history: Complains of some pain at surgical site on right foot. Otherwise doing well. Erythema has subsided and right lower extremity. No new complaints at this time. - Constitutional Vitals: Temp Pulse Resp BP Pulse Ox 98.2 F 75 17 121/85 96 06/11/17 10:54 06/11/17 10:54 06/11/17 10:54 06/11/17 10:54 06/11/17 10:54 General appearance: Present: cooperative, A&O X 3, morbidly obese, pleasant, no acute distress, answers questions appropriately - Respiratory Respiratory exam: Present: CTAB. Absent: accessory muscle use, rales, rhonchi, wheezes - Cardiovascular Cardiovascular exam: Present: RRR, +S1, +S2. Absent: diastolic murmur, gallop, rubs, systolic murmur - GI/Abdominal GI/Abdominal exam: Present: normal bowel sounds, soft, no peritoneal signs. Absent: distended, tenderness - Extremities Exam Extremities exam: Present: warm, radial pulses palpable and symmetrical. Absent : calf tenderness, cyanotic, pedal edema Additional comments: Erythema of right lower extremity is mostly subsided. There is slight pedal edema involving this extremity. Foot is currently bandaged. Internal Medicine: Result - Labs CBC & Chem 7: 06/09/17 05:03 06/09/17 05:03 - ABG Interpretation ABG results: PT/INR, D-dimer PT 15.2 Seconds (9.4-12.1) H 06/08/17 06:44 Consult Discharge Plan - Plan Referrals: Becca Dove CNP [Advanced Practice Nurse] - 06/26/17 8:30 am Rogers Pederson MD [Primary Care Provider] - 06/13/17 3:30 pm Prescriptions: cefTRIAXone [Rocephin] 2,000 mg IVPB DAILY #45 vial
[2017-06-11] MEDS: *HR* HYDROcodone/Acet 5/325 mg TABLET PO PRN (18:13)
[2017-06-11] MEDS: tiZANidine 4 MG TABLET PO SCH (20:42)
[2017-06-11] MEDS: Insulin DETEMIR 100 UNIT/ML X5UNITS SQ SCH (20:50)
--- NOTE | 2017-06-11 23:24 | Podiatry Progress Note ---
Date of Encounter: 06/11/17 Time of Encounter: 23:24 - Assessment and Plan (1) Diabetic foot ulcer Current Visit: Yes Status: Acute Continue prior treatment plan with no changes. Qualifiers: Diabetic foot ulcer location: unspecified part of foot Diabetes mellitus type: type 2 Laterality: right Non-pressure ulcer stage: limited to breakdown of skin Qualified Code(s): E11.621 - Type 2 diabetes mellitus with foot ulcer; L97.511 - Non-pressure chronic ulcer of other part of right foot limited to breakdown of skin Subjective Principal diagnosis: Diabetic foot ulcer with infection right. Interval history: Patient relates no new changes Objective - Vital Signs Vital Signs: Vital Signs Temp Pulse Resp BP Pulse Ox 06/11/17 19:05 98.2 F 87 18 151/88 96 06/11/17 16:01 98.2 F 77 18 137/87 94 06/11/17 10:54 98.2 F 75 17 121/85 96 06/11/17 07:12 98.0 F 82 17 118/68 98 06/11/17 03:17 97.5 F L 82 17 113/72 95 Intake and Output 06/11/17 06/11/17 06/11/17 07:59 15:59 23:59 Intake Total 340 / 340 480 / 480 220 / 220 Output Total 0 / 0 0 / 0 Balance 340 / 340 480 / 480 220 / 220 Intake: IV Fluids 100 / 100 100 / 100 Zosyn 3.375 GM In 100 / 100 Dextrose 5% (Minibag+) 100 ML 100 ML @ 25 mls/hr IVPB Q8HR [facility] Rx#: [id number] Rocephin 2,000 MG In 100 / 100 Dextrose 5% (Minibag+) 100 ML 100 ML @ 200 mls/ hr IVPB DAILY [facility] Rx#: [id number] Oral 240 / 240 480 / 480 120 / 120 Output: Urine 0 / 0 0 / 0 Other: Meal Lunch Dinner Percent of Meal Consumed 100% 100% # Voids 1 # Bowel Movements 0 0 Weight 173 kg Blood Glucose* 157 198 137 Patient Weight 06/11/17 23:59 Weight 173 kg - Exam Exam: Severe bilateral lower extremity edema. Significant drainage noted out of the right posterior leg and a large wound on the posterior aspect of the patient's right leg. The right heel also has an ulceration. Difficult to palpate any fluctuance or abscess. Generalized erythema consistent with cellulitis, right leg. Capillary fill time intact to the digits. - Lab Result Diagrams: 06/09/17 05:03 06/09/17 05:03 Labs: Abnormal lab results ESR 90 mm/hr (0-10) H 06/06/17 14:07 PT 15.2 Seconds (9.4-12.1) H 06/08/17 06:44 APTT 37.8 Seconds (26.0-36.0) H 06/06/17 05:17 Chloride 110 mEq/L (98-109) H 06/09/17 05:03 Glucose 125 mg/dL (70-99) H 06/09/17 05:03 POC Glucose 137 (58-89) H 06/11/17 20:29 Hemoglobin A1c 6.1 % (-5.6) H 06/06/17 05:17 C-Reactive Protein 141 mg/L (Less than 5) H 06/06/17 14:07 HDL Cholesterol 29 mg/dL (40-59) L 06/06/17 05:17 Microbiology, Last 48 Hours 06/08/17 11:10 Surgical Biopsy Culture - Preliminary Right Foot 06/08/17 11:05 Wound Culture - Final Right Foot Strep agalactiae - (Group B) Consult Discharge Plan - Plan Referrals: Becca Dove CNP [Advanced Practice Nurse] - 06/26/17 8:30 am Rogers Pederson MD [Primary Care Provider] - 06/13/17 3:30 pm Prescriptions: cefTRIAXone [Rocephin] 2,000 mg IVPB DAILY #45 vial
[2017-06-12] MEDS: *HR* Morphine 2 MG/ML SYRINGE IVP PRN ×2 (03:53→08:12)
[2017-06-12] MEDS: *HR* HYDROcodone/Acet 5/325 mg TABLET PO PRN ×3 (06:03→17:50)
[2017-06-12 07:24] VITALS: BP 135/82
[2017-06-12] MEDS: Aspirin Enteric Coated 81 MG Tablet PO SCH (08:11)
[2017-06-12] MEDS: Topiramate 25 MG TABLET PO SCH (08:12)
[2017-06-12] MEDS: Pregabalin 50 MG CAPSULE PO SCH ×2 (08:12→17:50)
[2017-06-12] MEDS: Bumetanide 1 MG TABLET PO SCH (08:12)
[2017-06-12] MEDS: Multivit/Ca/Min/Fe/FA 1 TAB TABLET PO SCH (08:12)
[2017-06-12] MEDS: APIXABAN 5 MG TABLET PO SCH (08:12)
[2017-06-12] MEDS: Diltiazem SR (12hr) 90 MG CAPSULE PO SCH (08:12)
[2017-06-12] MEDS: Insulin LISPRO 300 UNITS/3 ML VIAL SQ SCH ×6 (08:20→17:51)
--- NOTE | 2017-06-12 09:32 | Discharge Summary ---
Date of Encounter: 06/12/17 Time of Encounter: 09:00 - Discharge Diagnosis (1) Osteomyelitis of foot, right, acute Priority: Primary Status: Acute (2) Diabetic foot ulcer Priority: Secondary Status: Acute Comments: With acute osteomyelitis involving the fifth metatarsophalangeal joint and foot abscess from diabetes mellitus type 2 Qualifiers: Diabetic foot ulcer location: other Diabetes mellitus type: type 2 Laterality: right Non-pressure ulcer stage: with fat layer exposed Qualified Code(s): E11.621 - Type 2 diabetes mellitus with foot ulcer; L97.512 - Non-pressure chronic ulcer of other part of right foot with fat layer exposed (3) Cellulitis Priority: Secondary Status: Resolved Qualifiers: Site of cellulitis: extremity Site of cellulitis of extremity: lower extremity Laterality: right Qualified Code(s): L03.115 - Cellulitis of right lower limb (4) Chronic atrial fibrillation Priority: Secondary Status: Chronic (5) Diabetes Priority: Secondary Status: Chronic Qualifiers: Diabetes mellitus type: type 2 Diabetes mellitus complication status: with skin complications Diabetes mellitus complication detail: with foot ulcer Diabetes mellitus custodial insulin use: with laborer marine terminal use Qualified Code(s) : E11.621 - Type 2 diabetes mellitus with foot ulcer; L97.509 - Non-pressure chronic ulcer of other part of unspecified foot with unspecified severity; Z79.4 - buttermaker helper (current) use of insulin (6) GERD (gastroesophageal reflux disease) Priority: Secondary Status: Chronic Qualifiers: Esophagitis presence: esophagitis presence not specified Qualified Code(s) : K21.9 - Gastro-esophageal reflux disease without esophagitis (7) HTN (hypertension) Priority: Secondary Status: Chronic Qualifiers: Hypertension type: essential hypertension Qualified Code(s): I10 - Essential (primary) hypertension (8) DVT prophylaxis Priority: Secondary Status: Acute - Discharge Medications Prescriptions: cefTRIAXone [Rocephin] 2,000 mg IVPB DAILY #45 vial Home Medications: Pravastatin Sodium [Pravachol] 20 mg PO HS 08/10/15 [History] Allopurinol [Zyloprim 300 MG] 300 mg PO DAILY 03/23/16 [History] Insulin Glargine [Lantus] 40 unit SQ HS 06/02/17 [History] Alogliptin Benzoate [Alogliptin] 25 mg PO DAILY 06/05/17 [History] Apixaban [Eliquis] 5 mg PO BID 06/05/17 [History] Aspirin Enteric Coated [Aspirin EC] 162 mg PO DAILY 06/05/17 [History] Bumetanide [Bumex] 1 mg PO DAILY PRN 06/05/17 [History] Diltiazem HCl [Diltiazem ER] 180 mg PO BID 06/05/17 [History] Furosemide [Lasix] 40 mg PO DAILY 06/05/17 [History] HYDROcodone/Acet 10/325 mg [[place] 10-325 mg] 1 tab PO Q8H PRN 06/05/17 [History] Metoprolol Tartrate [Lopressor] 50 mg PO BID 06/05/17 [History] Multivitamin [Multi-Day Vitamins] 1 each PO DAILY 06/05/17 [History] Pregabalin [Lyrica] 100 mg PO TID 06/05/17 [History] Testosterone 1 appl TP DAILY 06/05/17 [History] Tizanidine HCl 4 mg PO HS 06/05/17 [History] Topiramate 50 mg PO BID 06/05/17 [History] glipiZIDE [Glipizide] 20 mg PO BID 06/05/17 [History] cefTRIAXone [Rocephin] 2,000 mg IVPB DAILY #45 vial 06/09/17 [Rx] Allergies/Adverse Reactions: Allergies No Known Allergies Allergy (Verified 06/05/17 14:38) Date of admission: 06/05/17 19:15 Primary care physician: Rogers Pederson MD Consults: 06/05/17 19:24 Consult to Packager Or Packer And Weigher [CONS] Routine Comment: Reason for Consult: Patient is diabetic and not always compliant. Currently has diabetic foot ulcer on right foot and is in need of diabetes counseling. 06/08/17 15:59 Consult to Infectious Diseases [CONS] Routine Consulting Provider: Infectious Disease [place] Reason for Consult: Osteomyelitis and foot abscess right foot Time Notified: 16:00 Call Completed: Yes 06/09/17 10:36 Consult to Invasive Line Access Team [CONS] Routine Reason for Consult: home atb Line Type: EPIV Discharging clinician: Korey Carlton Anticipated date of discharge: 06/12/17 - Patient Status Disposition: Home Health Service Condition: Good Functional capacity at discharge: independent ambulation Overall status at discharge: patient is progressing back to baseline - Discharge Instructions Instructions: Diabetes Mellitus Type 2 in Adults (DC) Follow Up With: Becca Dove CNP [Advanced Practice Nurse] - 06/26/17 8:30 am Rogers Pederson MD [Primary Care Provider] - 06/13/17 3:30 pm Jaya Rubin DPM [Partnered Physician] - (in 1-2 weeks) Additional Instructions: Follow-up with wound care at [facility] - Diet and Activity Activity: resume usual activities as tolerated Diet: diabetic diet, low fat, low cholesterol, low salt diet Hospital course: Mr. Rausch is a 56 year old male patient with history of diabetes mellitus type 2 , hypertension and hyperlipidemia with chronic right foot diabetic foot ulcer and was admitted to the hospital after presenting to the ED with complaints of worsening pain and swelling in right foot. He did have cellulitis involving his right foot and ankle up to the lower third of the leg. He was admitted and treated with IV antibiotics. Podiatry was consulted and per their recommendations MRI of the right foot was done which showed findings suggestive of osteomyelitis involving the fifth metatarsal bone. Patient then underwent surgery with resection of the fifth metatarsal phalangeal joint. Wound cultures of both the ulcer and from during surgery were positive for Streptococcus agalactiae. Infectious disease was consulted and they recommended discharging the patient on intravenous antibiotics with IV Rocephin for 4-6 weeks. Patient will be discharged today as outpatient antibiotics through home health has been arranged for the patient and he will follow up with podiatry, wound care and infectious disease as outpatient. - Time Spent with Patient Total time spent providing and/or coordinating discharge services: Greater than 30 minutes (40 min) - Constitutional Vitals: Temp Pulse Resp BP Pulse Ox 97.7 F 87 18 135/82 96 06/12/17 07:14 06/12/17 07:14 06/12/17 07:14 06/12/17 07:14 06/12/17 07:14 General appearance: Present: cooperative, A&O X 3, morbidly obese, pleasant, no acute distress, answers questions appropriately - Neck Neck exam general surgery: Present: supple, trachea midline. Absent: lymphadenopathy - Respiratory Respiratory exam: Present: CTAB. Absent: accessory muscle use, rales, rhonchi, wheezes - Cardiovascular Cardiovascular exam: Present: RRR, +S1, +S2. Absent: diastolic murmur, gallop, rubs, systolic murmur - GI/Abdominal GI/Abdominal exam: Present: normal bowel sounds, soft, no peritoneal signs. Absent: distended, tenderness - Extremities Exam Extremities exam: Present: warm, radial pulses palpable and symmetrical. Absent : calf tenderness, cyanotic, pedal edema Additional comments: Cellulitis resolved over the right leg. Right foot currently bandaged. Nontender to palpation.
--- NOTE | 2017-06-12 11:20 | Physician Discharge Referral ---
Home Health/Hosp Referral Info Transfer to: Home Health Provider in Charge Post Discharge: PCP - Diagnosis (1) Osteomyelitis of foot, right, acute Priority: Primary Status: Acute (2) Diabetic foot ulcer Priority: Secondary Status: Acute (3) Cellulitis Priority: Secondary Status: Resolved (4) Chronic atrial fibrillation Priority: Secondary Status: Chronic (5) Diabetes Priority: Secondary Status: Chronic (6) GERD (gastroesophageal reflux disease) Priority: Secondary Status: Chronic (7) HTN (hypertension) Priority: Secondary Status: Chronic (8) DVT prophylaxis Priority: Secondary Status: Acute - Respiratory Orders Smoking Cessation: Smoking cessation has been advised. For more information, call the [place] Tobacco Quit Line at 7-166-DHEZ-NOW. - Diet/Nutrition Diet/Nutrition Orders: Cardiac, No Concentrated Sweets (diabetic) - Activity Activity Orders: Ambulate - Services Needed Following services are medically necessary services: Detention Care Orders: CBC, basic panel, ESR, CRP on Monday of each week while patient is receiving IV antibiotics - Transfer Medications Prescriptions: cefTRIAXone [Rocephin] 2,000 mg IVPB DAILY #45 vial Home Medications: Pravastatin Sodium [Pravachol] 20 mg PO HS 08/10/15 [History] Allopurinol [Zyloprim 300 MG] 300 mg PO DAILY 03/23/16 [History] Insulin Glargine [Lantus] 40 unit SQ HS 06/02/17 [History] Alogliptin Benzoate [Alogliptin] 25 mg PO DAILY 06/05/17 [History] Apixaban [Eliquis] 5 mg PO BID 06/05/17 [History] Aspirin Enteric Coated [Aspirin EC] 162 mg PO DAILY 06/05/17 [History] Bumetanide [Bumex] 1 mg PO DAILY PRN 06/05/17 [History] Diltiazem HCl [Diltiazem ER] 180 mg PO BID 06/05/17 [History] Furosemide [Lasix] 40 mg PO DAILY 06/05/17 [History] HYDROcodone/Acet 10/325 mg [[place] 10-325 mg] 1 tab PO Q8H PRN 06/05/17 [History] Metoprolol Tartrate [Lopressor] 50 mg PO BID 06/05/17 [History] Multivitamin [Multi-Day Vitamins] 1 each PO DAILY 06/05/17 [History] Pregabalin [Lyrica] 100 mg PO TID 06/05/17 [History] Testosterone 1 appl TP DAILY 06/05/17 [History] Tizanidine HCl 4 mg PO HS 06/05/17 [History] Topiramate 50 mg PO BID 06/05/17 [History] glipiZIDE [Glipizide] 20 mg PO BID 06/05/17 [History] cefTRIAXone [Rocephin] 2,000 mg IVPB DAILY #45 vial 06/09/17 [Rx] Allergies/Adverse Reactions: Allergies No Known Allergies Allergy (Verified 06/05/17 14:38) Certification: Further, I certify that my clinical findings support that this patient is homebound (i.e. absences from home require considerable and taxing effort and are for medical reasons or restorationism services or infrequently or short duration when for other reasons) because: Homebound Reason: Post-surgery restriction and or conditions limit ability to leave home (Patient requires home IV antibiotics and wound care) Attestation: My signature below is to certify that this patient is under my care and that I, or nurse practitioner, or a physician's diet assistant working with me, has a face-to -face encounter with this patient.
--- NOTE | 2017-06-12 11:45 | Infectious Disease Progress No ---
Date of Encounter: 06/12/17 Time of Encounter: 11:42 - Assessment and Plan (1) Osteomyelitis Current Visit: Yes Status: Acute Location: Right foot, 5th metatarsal and proximal 5th toe. Causative organism GBS per swab culture, but concern for polymicrobial infection given the patient's previous wound culture results (Citrobacter braakii 06/06/17, MSSA 05/11/17). Failed outpatient oral antibiotic therapy (clindamycin). MRI completed 06/06/17 showed findings consistent with OM of the 5th metatarsal and proximal 5th toe. Additionally, the wound was noted to probe to bone. ESR 90, CRP 141. Podiatry consulted. Status post I & D with resection of the 5th metatarsal and wound VAC application 06/08/[address] Rubin. Intra-operative report reviewed. Intra-op cultures obtained and grew GBS. Continue Rocephin 2 grams IV daily. municipal services manager consulted for discharge planning. EPIV placed 06/09/17. Monitor renal function and for drug toxicity and dose-adjust antibiotics. Get weekly CBC, BUN/Cr, ESR, and CRP every Monday for the duration of treatment. Weekly EPIV care per protocol. Follow up with ID 06/26/17 at 0830. Qualifiers: Osteomyelitis type: acute hematogenous Osteomyelitis location: foot Laterality: right Qualified Code(s): M86.071 - Acute hematogenous osteomyelitis, right ankle and foot (2) Cellulitis Current Visit: Yes Status: Acute Location: Right foot. Causative organism GBS. Improved. Continue antibiotics as above. Qualifiers: Site of cellulitis: extremity Site of cellulitis of extremity: lower extremity Laterality: right Qualified Code(s): L03.115 - Cellulitis of right lower limb (3) Diabetic foot ulcer Current Visit: Yes Status: Acute Likely secondary to offloading and/or poor-fitting shoes. Continue wound care as outlined by the podiatry team. Qualifiers: Diabetic foot ulcer location: unspecified part of foot Diabetes mellitus type: type 2 Laterality: right Non-pressure ulcer stage: limited to breakdown of skin Qualified Code(s): E11.621 - Type 2 diabetes mellitus with foot ulcer; L97.511 - Non-pressure chronic ulcer of other part of right foot limited to breakdown of skin (4) Chronic atrial fibrillation Current Visit: Yes Status: Chronic (5) Diabetes Current Visit: Yes Status: Chronic Hgb A1C 6.1%. Continue aggressive glucose monitoring and control to promote wound healing and prevent re-infection. 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 Qualified Code(s) : E11.621 - Type 2 diabetes mellitus with foot ulcer; L97.509 - Non-pressure chronic ulcer of other part of unspecified foot with unspecified severity; Z79.4 - USP (current) use of insulin (6) HLD (hyperlipidemia) Current Visit: Yes Status: Chronic Qualifiers: Hyperlipidemia type: pure hypercholesterolemia Qualified Code(s): E78.00 - Pure hypercholesterolemia, unspecified; E78.0 - Pure hypercholesterolemia (7) HTN (hypertension) Current Visit: Yes Status: Chronic Qualifiers: Hypertension type: essential hypertension Qualified Code(s): I10 - Essential (primary) hypertension - Subjective Interval history: Patient seen and examined. We can reviewed. No acute events noted overnight. Patient states that overall he feels well. He complains of mild pain to the right foot. Denies any fevers or chills or rigors. Denies any chest pain, shortness of breath, or cough. Denies any nausea, vomiting, diarrhea, constipation. Denies any urinary complaints. Denies abdominal pain and states appetite is okay. Denies any oral thrush or new skin lesions. Infect Dis PN-Objective Data - Labs CBC & Chem 7: 06/09/17 05:03 06/09/17 05:03 Labs: Laboratory Results - last 24 hr 06/11/17 06/11/17 16:00 20:29 POC Glucose 106 H 137 H Cultures: Cultures 06/08/17 11:05 Anaerobic Culture - Preliminary Right Foot At this time, no anaerobic growth is present. The culture will be finalized after 5 days of incubation. 06/08/17 11:10 Surgical Biopsy Culture - Preliminary Right Foot 06/08/17 11:05 Wound Culture - Final Right Foot Strep agalactiae - (Group B) Exam - Constitutional Vitals: Temp Pulse Resp BP Pulse Ox 97.7 F 87 18 135/82 96 06/12/17 07:14 06/12/17 07:14 06/12/17 07:14 06/12/17 07:14 06/12/17 07:14 General appearance: cooperative, morbidly obese, no acute distress - Head Head exam: Present: atraumatic, normal inspection, normocephalic - Eye Eye exam: Present: EOMI, normal appearance, PERRL Pupils: Present: normal accommodation - ENT ENT exam: Present: mucous membranes moist - Neck Neck exam: Present: normal inspection - Respiratory Respiratory exam: Present: CTAB. Absent: rales, respiratory distress, rhonchi, wheezes - Cardiovascular Cardiovascular exam: Present: RRR, +S1, +S2 - GI/Abdominal GI/Abdominal exam: Present: distended (Obese), normal bowel sounds, soft. Absent: tenderness - Extremities Exam Extremities exam: Present: pedal edema (1+ right lower extremity). Absent: joint swelling, tenderness Additional comments: Dressing to the right foot is clean, dry, and intact. - Neurological Exam Neurological exam: Present: alert, oriented X3, no focal deficits - Psychiatric Psychiatric exam: Present: normal affect, normal mood - Skin Skin exam: Present: dry, intact, normal color, warm - Additional findings Additional findings: EP IV noted to the left upper extremity with transparent dressing clean, dry, and intact. Consult Discharge Plan - Plan Instructions: Diabetes Mellitus Type 2 in Adults (DC), Diabetic Foot Ulcers (DC ) Additional Instructions: Follow-up with wound care at [facility] Referrals: Becca Dove CNP [Advanced Practice Nurse] - 06/26/17 8:30 am Jaya Rubin DPM [Partnered Physician] - 06/13/17 1:00 pm ( ) Rogers Pederson MD [Primary Care Provider] - 06/16/17 10:30 am Prescriptions: cefTRIAXone [Rocephin] 2,000 mg IVPB DAILY #45 vial
[2017-06-12] MEDS ORDERED: Aminoglycoside Consult 1 EACH MC ONE (13:34)
== END 2017-06-12 19:28 | disposition home health service (06) | DRG 314 ==
LOC: EMEROO 14:31 → 3ANU 14:31 → SUATTDRO 19:15
PROVIDERS: ADMIT Internal Medicine Endocrinology, Diabetes & Metabolism; ATTEND Internal Medicine

== ENCOUNTER 2020-10-06 17:25 | Observation (INO) ==
[2020-10-06] MEDS ORDERED: Vancomycin 2,000 MG/520 ML IV.SOLN IVPB ONE (17:40)
[2020-10-06] MEDS ORDERED: Piperacillin/Tazobactam 3.375 GM in 0.9 % Sodium Chloride Mini Bag 100 ML IVPB ONE (17:40)
[2020-10-06 18:24] LABS: Basophils % 0.5 %; Eosinophils # 0.3 K/mcL (0.0-0.6); Hematocrit 39.7 % (37.5-50.1); Hemoglobin 12.2 g/dL (12.9-16.9); Immature Granulocytes % 0.2 % (0-4); Lymphocytes # 1.5 K/mcL (0.6-4.6); Lymphocytes % 17.3 %; Mean Corpuscular HGB Conc 30.7 g/dL (31.6-35.5); Mean Corpuscular Volume 84.6 fL (83.0-100.0); Monocytes # 0.6 K/mcL (0.0-1.3); Monocytes % 6.7 %; Neutrophils # 6.1 K/mcL (1.6-8.9); Platelet Count 185 K/mcL (140-400); Red Blood Count 4.69 M/mcL (4.19-5.50); Red Cell Distribution Width 17.2 % (11.5-14.5); Segmented Neutrophils % 72.3 %; White Blood Count 8.5 K/mcL (4.3-11.1)
[2020-10-06 18:42] LABS: BUN/Creatinine Ratio 24 (6-26); Blood Urea Nitrogen 23 mg/dL (8-23); C-Reactive Protein 35 mg/L (Less than 10); Calcium 9.2 mg/dL (8.6-10.3); Carbon Dioxide 30 mEq/L (23-29); Chloride 103 mEq/L (98-107); Glucose 142 mg/dL (70-105); Osmolality,Calculated 296 (280-300); Potassium 4.2 mEq/L (3.5-5.1); Sodium 140 mEq/L (136-145); eGFR For African Americans > 60 (> 60); eGFR For Non-African Americans > 60 (> 60)
[2020-10-06] MEDS ORDERED: *HR* FentaNYL (PF) 100 MCG/2 ML VIAL IVP ONE (19:59)
[2020-10-06] MEDS ORDERED: Ondansetron 4 MG/2 ML VIAL IVP PRN (22:30)
[2020-10-06] MEDS ORDERED: Naloxone 0.4 MG/ML INJ IVP PRN (22:30)
[2020-10-06] MEDS ORDERED: Acetaminophen 325 MG TABLET PO PRN (22:30)
[2020-10-07] MEDS ORDERED: D5% in Water 1,000 ML IVC PRN (01:24)
[2020-10-07] MEDS ORDERED: Dextrose Gel 15 GM/37.5 ML TUBE PO PRN ×2 (01:24)
[2020-10-07] MEDS ORDERED: *HR* Dextrose 50 % in Water (Vial) 50 ML VIAL IVP PRN (01:24)
[2020-10-07] MEDS: Piperacillin/Tazobactam 3.375 GM in 0.9 % Sodium Chloride Mini Bag 100 ML IVPB SCH ×3 (02:58→17:20)
[2020-10-07 04:34] LABS: Hematocrit 37.7 % (37.5-50.1); Hemoglobin 11.5 g/dL (12.9-16.9); Mean Corpuscular HGB Conc 30.5 g/dL (31.6-35.5); Mean Corpuscular Hemoglobin 25.8 pg (28.0-33.3); Mean Corpuscular Volume 84.7 fL (83.0-100.0); Mean Platelet Volume 9.8 fL (9.4-12.4); Platelet Count 169 K/mcL (140-400); Red Blood Count 4.45 M/mcL (4.19-5.50); Red Cell Distribution Width 17.3 % (11.5-14.5)
[2020-10-07 04:55] LABS: BUN/Creatinine Ratio 23 (6-26); Blood Urea Nitrogen 18 mg/dL (8-23); Calcium 8.8 mg/dL (8.6-10.3); Carbon Dioxide 26 mEq/L (23-29); Chloride 105 mEq/L (98-107); Glucose 144 mg/dL (70-105); Magnesium 1.8 mg/dL (1.6-2.6); Osmolality,Calculated 292 (280-300); Phosphorous 2.8 mg/dL (2.7-4.5); Potassium 3.6 mEq/L (3.5-5.1); Sodium 139 mEq/L (136-145); eGFR For African Americans > 60 (> 60); eGFR For Non-African Americans > 60 (> 60)
[2020-10-07] MEDS: Insulin LISPRO 300 UNITS/3 ML VIAL SQ SCH ×3 (05:29→17:15)
[2020-10-07] MEDS: Vancomycin 1,750 MG/517.5 ML IV.SOLN IVPB SCH ×2 (07:34→19:47)
[2020-10-07] MEDS: Furosemide 20 MG/2 ML VIAL IVP SCH (16:00)
[2020-10-07] MEDS: DilTIAZem CD (24hr) 120 MG CAP.ER.24H PO SCH (19:47)
[2020-10-07] MEDS: Apixaban 5 MG TABLET PO SCH (19:47)
[2020-10-07] MEDS: Insulin DETEMIR 100 UNIT/ML X5UNITS SQ SCH (21:16)
[2020-10-08] MEDS: Insulin LISPRO 300 UNITS/3 ML VIAL SQ SCH ×3 (00:54→11:36)
[2020-10-08] MEDS: Piperacillin/Tazobactam 3.375 GM in 0.9 % Sodium Chloride Mini Bag 100 ML IVPB SCH (01:24)
[2020-10-08 08:52] LABS: Basophils % 0.6 %; Eosinophils # 0.5 K/mcL (0.0-0.6); Eosinophils % 6.5 %; Hematocrit 39.9 % (37.5-50.1); Hemoglobin 12.3 g/dL (12.9-16.9); Immature Granulocytes % 0.4 % (0-4); Lymphocytes # 1.6 K/mcL (0.6-4.6); Lymphocytes % 23.1 %; Mean Corpuscular HGB Conc 30.8 g/dL (31.6-35.5); Mean Corpuscular Hemoglobin 25.9 pg (28.0-33.3); Monocytes # 0.6 K/mcL (0.0-1.3); Monocytes % 8.2 %; Neutrophils # 4.3 K/mcL (1.6-8.9); Platelet Count 178 K/mcL (140-400); Red Blood Count 4.75 M/mcL (4.19-5.50); Red Cell Distribution Width 17.2 % (11.5-14.5); Segmented Neutrophils % 61.2 %; White Blood Count 7.1 K/mcL (4.3-11.1)
[2020-10-08] MEDS ORDERED: Ascorbic Acid 500 MG TABLET PO SCH (09:00)
[2020-10-08] MEDS ORDERED: Cholecalciferol (D-3) 1,000 UNIT (25MCG) TABLET PO SCH (09:00)
[2020-10-08] MEDS ORDERED: Multivit/Ca/Min/Fe/FA 1 TAB TABLET PO SCH (09:00)
[2020-10-08] MEDS ORDERED: Magnesium Oxide 400 MG TABLET PO SCH (09:00)
[2020-10-08] MEDS ORDERED: Aspirin Enteric Coated 81 MG Tablet PO SCH (09:00)
[2020-10-08 09:06] LABS: Alanine Aminotransferase 12 Units/L (7-52); Albumin 3.8 g/dL (3.5-5.7); Albumin/Globulin Ratio 1.1 (1.1-2.2); Alkaline Phosphatase 69 Units/L (34-104); Aspartate Amino Transferase 16 Units/L (13-39); BUN/Creatinine Ratio 15 (6-26); Bilirubin,Total 0.8 mg/dL (0.3-1.0); Blood Urea Nitrogen 12 mg/dL (8-23); Calcium 9.3 mg/dL (8.6-10.3); Carbon Dioxide 29 mEq/L (23-29); Chloride 104 mEq/L (98-107); Globulin 3.4 g/dL (2.4-3.5); Glucose 128 mg/dL (70-105); Magnesium 1.7 mg/dL (1.6-2.6); Osmolality,Calculated 287 (280-300); Phosphorous 2.3 mg/dL (2.7-4.5); Potassium 3.7 mEq/L (3.5-5.1); Sodium 138 mEq/L (136-145); Total Protein 7.2 g/dL (6.4-8.9); Vancomycin,Trough 12 mcg/mL (5-10); eGFR For African Americans > 60 (> 60); eGFR For Non-African Americans > 60 (> 60)
[2020-10-08] MEDS ORDERED: Sulfamethoxazole/Trimeth DS 1 EACH TABLET PO SCH (09:15)
[2020-10-08] MEDS: Insulin DETEMIR 100 UNIT/ML X5UNITS SQ SCH (11:29)
[2020-10-08] MEDS: Furosemide 20 MG/2 ML VIAL IVP SCH (11:29)
[2020-10-08] MEDS: DilTIAZem CD (24hr) 120 MG CAP.ER.24H PO SCH (11:29)
[2020-10-08] MEDS: Apixaban 5 MG TABLET PO SCH (11:30)
[2020-10-08 11:35] VITALS: BP 141/74
== END 2020-10-08 16:19 | disposition home health service (06) ==
LOC: 3ANU 17:25 → EMEROOARM 17:25 → SUATTDRO 21:16 → 3ANU 22:32
PROVIDERS: ADMIT Family Medicine; ATTEND Internal Medicine

== ENCOUNTER 2021-01-04 13:26 | Inpatient (IN) ==
[2021-01-04 14:23] LABS: Basophils % 0.2 %; Eosinophils # 0.2 K/mcL (0.0-0.6); Eosinophils % 1.4 %; Hematocrit 40.8 % (37.5-50.1); Hemoglobin 12.9 g/dL (12.9-16.9); Immature Granulocytes % 0.3 % (0-4); Lymphocytes # 1.4 K/mcL (0.6-4.6); Lymphocytes % 11.5 %; Mean Corpuscular HGB Conc 31.6 g/dL (31.6-35.5); Mean Corpuscular Hemoglobin 25.9 pg (28.0-33.3); Mean Corpuscular Volume 81.8 fL (83.0-100.0); Mean Platelet Volume 9.5 fL (9.4-12.4); Monocytes % 8.2 %; Neutrophils # 9.3 K/mcL (1.6-8.9); Platelet Count 168 K/mcL (140-400); Red Blood Count 4.99 M/mcL (4.19-5.50); Segmented Neutrophils % 78.4 %; White Blood Count 11.8 K/mcL (4.3-11.1)
[2021-01-04] MEDS ORDERED: Piperacillin/Tazobactam 3.375 GM in 0.9 % Sodium Chloride Mini Bag 100 ML IVPB ONE (14:55)
[2021-01-04 14:56] LABS: BUN/Creatinine Ratio 18 (6-26); Blood Urea Nitrogen 18 mg/dL (8-23); C-Reactive Protein 208 mg/L (Less than 10); Calcium 9.1 mg/dL (8.6-10.3); Carbon Dioxide 29 mEq/L (23-29); Chloride 97 mEq/L (98-107); Glucose 177 mg/dL (70-105); Osmolality,Calculated 284 (280-300); Potassium 4.3 mEq/L (3.5-5.1); Sodium 134 mEq/L (136-145); eGFR For African Americans > 60 (> 60); eGFR For Non-African Americans > 60 (> 60)
[2021-01-04] MEDS ORDERED: Vancomycin 2,000 MG/520 ML IV.SOLN IVPB ONE (15:03)
[2021-01-04] MEDS ORDERED: Piperacillin/Tazobactam 3.375 GM in Water for inj. (sterile) 20 ML IVP ONE (15:15)
[2021-01-04] MEDS ORDERED: Clindamycin 600 MG/50 ML 600 MG/50 ML IV.SOLN IVPB STA (15:27)
[2021-01-04] MEDS ORDERED: Acetaminophen 325 MG TABLET PO PRN (16:06)
[2021-01-04] MEDS ORDERED: Naloxone 0.4 MG/ML INJ IVP PRN (16:06)
[2021-01-04] MEDS ORDERED: Ondansetron 4 MG/2 ML VIAL IVP PRN (16:06)
[2021-01-04] MEDS ORDERED: *HR* Dextrose 50 % in Water (Vial) 50 ML VIAL IVP PRN (16:06)
[2021-01-04] MEDS ORDERED: Dextrose Gel 15 GM/37.5 ML TUBE PO PRN ×2 (16:06)
[2021-01-04] MEDS ORDERED: D5% in Water 1,000 ML IVC PRN (16:06)
[2021-01-04 16:26] LABS: Estimated Average Glucose 128 mg/dl; Hemoglobin A1C 6.1 %
[2021-01-04] MEDS: Insulin LISPRO 300 UNITS/3 ML VIAL SUBQ SCH (18:51)
[2021-01-04] MEDS: *HR* Heparin 5,000 UNIT/ML VIAL SQ SCH (18:52)
[2021-01-04] MEDS: *HR* HYDROcodone/Acet 5/325 mg TABLET PO PRN (18:53)
[2021-01-04] MEDS: Piperacillin/Tazobactam 3.375 GM in 0.9 % Sodium Chloride Mini Bag 100 ML IVPB SCH (20:38)
[2021-01-04] MEDS: DilTIAZem CD (24hr) 180 MG CAP.ER.24H PO SCH (20:39)
[2021-01-04] MEDS: Clindamycin 600 MG/50 ML 600 MG/50 ML IV.SOLN IVPB SCH (20:41)
[2021-01-04] MEDS: Insulin DETEMIR 100 UNIT/ML X5UNITS SUBQ SCH (20:42)
[2021-01-04] MEDS ORDERED: *HR* Buprenorphine HCl 8 MG TAB.SUBL SL SCH (21:00)
[2021-01-04] MEDS ORDERED: QUEtiapine Fumarate 100 MG TABLET PO SCH (21:00)
[2021-01-05] MEDS: *HR* HYDROcodone/Acet 5/325 mg TABLET PO PRN ×3 (02:36→18:52)
[2021-01-05] MEDS: Vancomycin 1,750 MG/517.5 ML IV.SOLN IVPB SCH (02:38)
[2021-01-05] MEDS: Clindamycin 600 MG/50 ML 600 MG/50 ML IV.SOLN IVPB SCH ×2 (03:43→12:09)
[2021-01-05] MEDS: Piperacillin/Tazobactam 3.375 GM in 0.9 % Sodium Chloride Mini Bag 100 ML IVPB SCH ×3 (05:05→20:57)
[2021-01-05] MEDS: *HR* Heparin 5,000 UNIT/ML VIAL SQ SCH ×2 (05:05→18:08)
[2021-01-05 05:34] LABS: Basophils % 0.4 %; Eosinophils # 0.4 K/mcL (0.0-0.6); Hematocrit 35.4 % (37.5-50.1); Hemoglobin 11.3 g/dL (12.9-16.9); Immature Granulocytes % 0.4 % (0-4); Lymphocytes # 2.1 K/mcL (0.6-4.6); Lymphocytes % 19.3 %; Mean Corpuscular HGB Conc 31.9 g/dL (31.6-35.5); Mean Corpuscular Hemoglobin 25.7 pg (28.0-33.3); Mean Corpuscular Volume 80.6 fL (83.0-100.0); Mean Platelet Volume 10.1 fL (9.4-12.4); Monocytes # 1.1 K/mcL (0.0-1.3); Monocytes % 10.3 %; Neutrophils # 7.1 K/mcL (1.6-8.9); Platelet Count 162 K/mcL (140-400); Red Blood Count 4.39 M/mcL (4.19-5.50); Red Cell Distribution Width 16.2 % (11.5-14.5); Segmented Neutrophils % 65.6 %; White Blood Count 10.7 K/mcL (4.3-11.1)
[2021-01-05 05:52] LABS: BUN/Creatinine Ratio 19 (6-26); Blood Urea Nitrogen 17 mg/dL (8-23); Calcium 8.8 mg/dL (8.6-10.3); Carbon Dioxide 29 mEq/L (23-29); Chloride 101 mEq/L (98-107); Glucose 128 mg/dL (70-105); Osmolality,Calculated 285 (280-300); Potassium 3.9 mEq/L (3.5-5.1); Sodium 136 mEq/L (136-145); eGFR For African Americans > 60 (> 60); eGFR For Non-African Americans > 60 (> 60)
[2021-01-05] MEDS: Insulin LISPRO 300 UNITS/3 ML VIAL SUBQ SCH ×2 (07:44→11:08)
[2021-01-05] MEDS: DilTIAZem CD (24hr) 180 MG CAP.ER.24H PO SCH ×2 (08:23→20:56)
[2021-01-05] MEDS: Insulin DETEMIR 100 UNIT/ML X5UNITS SUBQ SCH ×2 (08:24→20:57)
[2021-01-05] MEDS ORDERED: Cholecalciferol (D-3) 1,000 UNIT (25MCG) TABLET PO SCH (09:00)
[2021-01-05] MEDS ORDERED: Magnesium Oxide 400 MG TABLET PO SCH (09:00)
[2021-01-05] MEDS ORDERED: Ascorbic Acid 500 MG TABLET PO SCH (09:00)
[2021-01-05] MEDS ORDERED: aMILoride 5 MG TABLET PO SCH (09:00)
[2021-01-05] MEDS ORDERED: Aspirin Enteric Coated 81 MG Tablet PO SCH (09:00)
[2021-01-05 10:40] LABS: Adenovirus Not Detected (Not Detect); Coronavirus 229E Not Detected (Not Detect); Coronavirus HKU1 Not Detected (Not Detect); Coronavirus NL63 Not Detected (Not Detect); Coronavirus OC43 Not Detected (Not Detect)
[2021-01-05 10:41] LABS: Bordetella Pertussis Not Detected (Not Detect); Chlamydophila pneumoniae Not Detected (Not Detect); Human Metapneumovirus Not Detected (Not Detect); Human Rhinovirus/Enterovirus Not Detected (Not Detect); Influenza A Subtype 2009 H1 Not Detected (Not Detect); Influenza B Not Detected (Not Detect); Mycoplasma pneumoniae Not Detected (Not Detect); Parainfluenza Virus 1 Not Detected (Not Detect); Parainfluenza Virus 2 Not Detected (Not Detect); Parainfluenza Virus 3 Not Detected (Not Detect); Parainfluenza Virus 4 Not Detected (Not Detect); Respiratory Syncytial Virus Not Detected (Not Detect); SARS-CoV-2 Not Detected (Not Detect)
[2021-01-05] MEDS ORDERED: Bupivacaine-MPF 0.25% 10 ML VIAL ONE (15:10)
[2021-01-05] MEDS ORDERED: *HR* Propofol 200 MG/20 ML VIAL IVP ONE (15:18)
[2021-01-05] MEDS ORDERED: *HR* Midazolam HCl 2 MG/2 ML VIAL ONE (15:35)
[2021-01-05] MEDS ORDERED: Lidocaine -MPF 2% 2 ML VIAL ONE (16:07)
[2021-01-05] MEDS ORDERED: Naloxone 0.4 MG/ML INJ IVP PRN (16:48)
[2021-01-05] MEDS ORDERED: Dextrose Gel 15 GM/37.5 ML TUBE PO PRN ×2 (16:48)
[2021-01-05] MEDS ORDERED: D5% in Water 1,000 ML IVC PRN (16:48)
[2021-01-05] MEDS ORDERED: *HR* Dextrose 50 % in Water (Vial) 50 ML VIAL IVP PRN (16:48)
[2021-01-05] MEDS ORDERED: Ondansetron 4 MG/2 ML VIAL IVP PRN (16:48)
[2021-01-05] MEDS ORDERED: Vancomycin 1,750 MG/517.5 ML IV.SOLN IVPB SCH (18:00)
[2021-01-05] MEDS: QUEtiapine Fumarate 25 MG TABLET PO SCH (20:56)
[2021-01-05] MEDS: Acetaminophen 325 MG TABLET PO PRN (21:04)
[2021-01-06] MEDS: *HR* HYDROcodone/Acet 5/325 mg TABLET PO PRN ×4 (00:30→22:26)
[2021-01-06] MEDS: Piperacillin/Tazobactam 3.375 GM in 0.9 % Sodium Chloride Mini Bag 100 ML IVPB SCH ×3 (03:00→21:03)
[2021-01-06 05:20] LABS: Basophils # 0.1 K/mcL (0.0-0.2); Basophils % 0.5 %; Eosinophils # 0.6 K/mcL (0.0-0.6); Eosinophils % 5.1 %; Hematocrit 36.3 % (37.5-50.1); Hemoglobin 11.4 g/dL (12.9-16.9); Immature Granulocytes % 0.5 % (0-4); Lymphocytes # 2.1 K/mcL (0.6-4.6); Lymphocytes % 19.9 %; Mean Corpuscular HGB Conc 31.4 g/dL (31.6-35.5); Mean Corpuscular Hemoglobin 25.9 pg (28.0-33.3); Mean Corpuscular Volume 82.3 fL (83.0-100.0); Mean Platelet Volume 9.9 fL (9.4-12.4); Monocytes # 0.9 K/mcL (0.0-1.3); Monocytes % 8.2 %; Platelet Count 178 K/mcL (140-400); Red Blood Count 4.41 M/mcL (4.19-5.50); Red Cell Distribution Width 16.1 % (11.5-14.5); Segmented Neutrophils % 65.8 %; White Blood Count 10.7 K/mcL (4.3-11.1)
[2021-01-06 05:40] LABS: BUN/Creatinine Ratio 18 (6-26); Blood Urea Nitrogen 14 mg/dL (8-23); Calcium 8.8 mg/dL (8.6-10.3); Carbon Dioxide 29 mEq/L (23-29); Chloride 102 mEq/L (98-107); Glucose 95 mg/dL (70-105); Osmolality,Calculated 284 (280-300); Potassium 4.4 mEq/L (3.5-5.1); Sodium 137 mEq/L (136-145); eGFR For African Americans > 60 (> 60); eGFR For Non-African Americans > 60 (> 60)
[2021-01-06] MEDS ORDERED: Vancomycin 1,500 MG/265 ML IV.SOLN IVPB SCH (06:00)
[2021-01-06] MEDS: *HR* Heparin 5,000 UNIT/ML VIAL SQ SCH ×2 (06:12→16:41)
[2021-01-06] MEDS: Insulin DETEMIR 100 UNIT/ML X5UNITS SUBQ SCH ×2 (08:54→20:56)
[2021-01-06] MEDS: Magnesium Oxide 400 MG TABLET PO SCH (08:54)
[2021-01-06] MEDS: Cholecalciferol (D-3) 1,000 UNIT (25MCG) TABLET PO SCH (08:55)
[2021-01-06] MEDS: Aspirin Enteric Coated 81 MG Tablet PO SCH (08:55)
[2021-01-06] MEDS: Ascorbic Acid 500 MG TABLET PO SCH (08:55)
[2021-01-06] MEDS: DilTIAZem CD (24hr) 180 MG CAP.ER.24H PO SCH ×2 (08:55→20:55)
[2021-01-06] MEDS: aMILoride 5 MG TABLET PO SCH (08:56)
[2021-01-06] MEDS: Insulin LISPRO 300 UNITS/3 ML VIAL SUBQ SCH ×4 (08:56→20:24)
[2021-01-06] MEDS: Acetaminophen 325 MG TABLET PO PRN (09:05)
[2021-01-06] MEDS: Vancomycin 1,750 MG/517.5 ML IV.SOLN IVPB SCH (20:24)
[2021-01-06] MEDS: QUEtiapine Fumarate 25 MG TABLET PO SCH (20:54)
[2021-01-07 02:19] LABS: Basophils # 0.1 K/mcL (0.0-0.2); Basophils % 0.5 %; Eosinophils # 0.6 K/mcL (0.0-0.6); Hematocrit 35.1 % (37.5-50.1); Hemoglobin 11.1 g/dL (12.9-16.9); Immature Granulocytes % 0.6 % (0-4); Lymphocytes # 2.5 K/mcL (0.6-4.6); Lymphocytes % 25.8 %; Mean Corpuscular HGB Conc 31.6 g/dL (31.6-35.5); Mean Corpuscular Hemoglobin 25.2 pg (28.0-33.3); Mean Corpuscular Volume 79.8 fL (83.0-100.0); Mean Platelet Volume 9.3 fL (9.4-12.4); Monocytes # 0.7 K/mcL (0.0-1.3); Monocytes % 6.9 %; Neutrophils # 5.9 K/mcL (1.6-8.9); Platelet Count 201 K/mcL (140-400); Segmented Neutrophils % 60.2 %; White Blood Count 9.7 K/mcL (4.3-11.1)
[2021-01-07 02:37] LABS: BUN/Creatinine Ratio 19 (6-26); Blood Urea Nitrogen 15 mg/dL (8-23); Calcium 9.1 mg/dL (8.6-10.3); Carbon Dioxide 27 mEq/L (23-29); Chloride 104 mEq/L (98-107); Glucose 84 mg/dL (70-105); Osmolality,Calculated 284 (280-300); Potassium 4.2 mEq/L (3.5-5.1); Sodium 137 mEq/L (136-145); eGFR For African Americans > 60 (> 60); eGFR For Non-African Americans > 60 (> 60)
[2021-01-07] MEDS: Acetaminophen 325 MG TABLET PO PRN (03:15)
[2021-01-07] MEDS: Piperacillin/Tazobactam 3.375 GM in 0.9 % Sodium Chloride Mini Bag 100 ML IVPB SCH ×3 (05:45→20:06)
[2021-01-07] MEDS: *HR* Heparin 5,000 UNIT/ML VIAL SQ SCH (05:46)
[2021-01-07] MEDS: Insulin LISPRO 300 UNITS/3 ML VIAL SUBQ SCH ×3 (08:23→16:30)
[2021-01-07] MEDS: Aspirin Enteric Coated 81 MG Tablet PO SCH (08:30)
[2021-01-07] MEDS: aMILoride 5 MG TABLET PO SCH (08:30)
[2021-01-07] MEDS: Ascorbic Acid 500 MG TABLET PO SCH (08:30)
[2021-01-07] MEDS: Cholecalciferol (D-3) 1,000 UNIT (25MCG) TABLET PO SCH (08:30)
[2021-01-07] MEDS: DilTIAZem CD (24hr) 180 MG CAP.ER.24H PO SCH ×2 (08:31→20:06)
[2021-01-07] MEDS: Magnesium Oxide 400 MG TABLET PO SCH (08:31)
[2021-01-07] MEDS: *HR* HYDROcodone/Acet 5/325 mg TABLET PO PRN ×2 (08:31→16:45)
[2021-01-07] MEDS: Insulin DETEMIR 100 UNIT/ML X5UNITS SUBQ SCH ×2 (08:32→20:05)
[2021-01-07] MEDS: QUEtiapine Fumarate 25 MG TABLET PO SCH (20:05)
[2021-01-07] MEDS: Apixaban 5 MG TABLET PO SCH (20:05)
[2021-01-08] MEDS: *HR* HYDROcodone/Acet 5/325 mg TABLET PO PRN ×3 (04:41→21:13)
[2021-01-08] MEDS: Piperacillin/Tazobactam 3.375 GM in 0.9 % Sodium Chloride Mini Bag 100 ML IVPB SCH ×2 (04:41→20:51)
[2021-01-08] MEDS: Insulin LISPRO 300 UNITS/3 ML VIAL SUBQ SCH ×3 (07:39→17:28)
[2021-01-08 08:04] LABS: Basophils # 0.1 K/mcL (0.0-0.2); Basophils % 0.6 %; Eosinophils # 0.6 K/mcL (0.0-0.6); Eosinophils % 6.9 %; Hematocrit 37.7 % (37.5-50.1); Hemoglobin 11.6 g/dL (12.9-16.9); Lymphocytes # 2.1 K/mcL (0.6-4.6); Lymphocytes % 25.4 %; Mean Corpuscular HGB Conc 30.8 g/dL (31.6-35.5); Mean Corpuscular Hemoglobin 25.4 pg (28.0-33.3); Mean Corpuscular Volume 82.7 fL (83.0-100.0); Mean Platelet Volume 9.8 fL (9.4-12.4); Monocytes # 0.6 K/mcL (0.0-1.3); Monocytes % 6.6 %; Neutrophils # 4.9 K/mcL (1.6-8.9); Platelet Count 225 K/mcL (140-400); Red Blood Count 4.56 M/mcL (4.19-5.50); Segmented Neutrophils % 59.5 %; White Blood Count 8.3 K/mcL (4.3-11.1)
[2021-01-08 08:20] LABS: BUN/Creatinine Ratio 11 (6-26); Blood Urea Nitrogen 10 mg/dL (8-23); Calcium 9.4 mg/dL (8.6-10.3); Carbon Dioxide 29 mEq/L (23-29); Chloride 102 mEq/L (98-107); Glucose 112 mg/dL (70-105); Osmolality,Calculated 282 (280-300); Potassium 4.6 mEq/L (3.5-5.1); Sodium 136 mEq/L (136-145); eGFR For African Americans > 60 (> 60); eGFR For Non-African Americans > 60 (> 60)
[2021-01-08] MEDS: Cholecalciferol (D-3) 1,000 UNIT (25MCG) TABLET PO SCH (08:27)
[2021-01-08] MEDS: Aspirin Enteric Coated 81 MG Tablet PO SCH (08:28)
[2021-01-08] MEDS: DilTIAZem CD (24hr) 180 MG CAP.ER.24H PO SCH ×2 (08:28→21:11)
[2021-01-08] MEDS: Magnesium Oxide 400 MG TABLET PO SCH (08:28)
[2021-01-08] MEDS: aMILoride 5 MG TABLET PO SCH (08:28)
[2021-01-08] MEDS: Ascorbic Acid 500 MG TABLET PO SCH (08:29)
[2021-01-08] MEDS: Apixaban 5 MG TABLET PO SCH ×2 (08:29→21:11)
[2021-01-08] MEDS: Insulin DETEMIR 100 UNIT/ML X5UNITS SUBQ SCH (09:58)
[2021-01-08] MEDS: metroNIDAZOLE 500 MG TABLET PO SCH ×2 (16:17→21:10)
[2021-01-08] MEDS: cefTRIAXone 2,000 MG in Water for inj. (sterile) 20 ML IVP SCH (16:19)
[2021-01-08] MEDS: Acetaminophen 325 MG TABLET PO PRN (17:35)
[2021-01-08] MEDS: QUEtiapine Fumarate 25 MG TABLET PO SCH (21:11)
[2021-01-09 02:29] LABS: Basophils % 0.5 %; Eosinophils # 0.5 K/mcL (0.0-0.6); Eosinophils % 5.8 %; Hemoglobin 12.6 g/dL (12.9-16.9); Immature Granulocytes % 0.7 % (0-4); Lymphocytes # 2.6 K/mcL (0.6-4.6); Lymphocytes % 31.3 %; Mean Corpuscular HGB Conc 30.7 g/dL (31.6-35.5); Mean Corpuscular Hemoglobin 25.3 pg (28.0-33.3); Mean Corpuscular Volume 82.2 fL (83.0-100.0); Mean Platelet Volume 9.4 fL (9.4-12.4); Monocytes # 0.6 K/mcL (0.0-1.3); Monocytes % 6.7 %; Neutrophils # 4.6 K/mcL (1.6-8.9); Platelet Count 265 K/mcL (140-400); Red Blood Count 4.99 M/mcL (4.19-5.50); White Blood Count 8.4 K/mcL (4.3-11.1)
[2021-01-09 02:48] LABS: BUN/Creatinine Ratio 15 (6-26); Blood Urea Nitrogen 13 mg/dL (8-23); Calcium 9.5 mg/dL (8.6-10.3); Carbon Dioxide 28 mEq/L (23-29); Chloride 103 mEq/L (98-107); Glucose 145 mg/dL (70-105); Osmolality,Calculated 289 (280-300); Potassium 4.3 mEq/L (3.5-5.1); Sodium 138 mEq/L (136-145); eGFR For African Americans > 60 (> 60); eGFR For Non-African Americans > 60 (> 60)
[2021-01-09] MEDS: aMILoride 5 MG TABLET PO SCH (08:26)
[2021-01-09] MEDS: Insulin LISPRO 300 UNITS/3 ML VIAL SUBQ SCH ×3 (08:26→16:47)
[2021-01-09] MEDS: Cholecalciferol (D-3) 1,000 UNIT (25MCG) TABLET PO SCH (08:26)
[2021-01-09] MEDS: DilTIAZem CD (24hr) 180 MG CAP.ER.24H PO SCH ×2 (08:27→20:40)
[2021-01-09] MEDS: Ascorbic Acid 500 MG TABLET PO SCH (08:27)
[2021-01-09] MEDS: Apixaban 5 MG TABLET PO SCH ×2 (08:27→20:39)
[2021-01-09] MEDS: Magnesium Oxide 400 MG TABLET PO SCH (08:27)
[2021-01-09] MEDS: metroNIDAZOLE 500 MG TABLET PO SCH ×3 (08:27→20:39)
[2021-01-09] MEDS: Aspirin Enteric Coated 81 MG Tablet PO SCH (08:27)
[2021-01-09] MEDS: cefTRIAXone 2,000 MG in Water for inj. (sterile) 20 ML IVP SCH (08:28)
[2021-01-09] MEDS: *HR* HYDROcodone/Acet 5/325 mg TABLET PO PRN (08:36)
[2021-01-09] MEDS: *HR* Buprenorphine HCl 8 MG TAB.SUBL SL SCH (12:54)
[2021-01-09] MEDS: Acetaminophen 325 MG TABLET PO PRN ×2 (14:32→20:39)
[2021-01-09] MEDS: QUEtiapine Fumarate 25 MG TABLET PO SCH (20:39)
[2021-01-10 04:02] LABS: Basophils % 0.5 %; Eosinophils # 0.4 K/mcL (0.0-0.6); Eosinophils % 4.7 %; Hematocrit 39.6 % (37.5-50.1); Hemoglobin 12.4 g/dL (12.9-16.9); Immature Granulocytes % 0.7 % (0-4); Lymphocytes # 2.4 K/mcL (0.6-4.6); Lymphocytes % 27.4 %; Mean Corpuscular HGB Conc 31.3 g/dL (31.6-35.5); Mean Corpuscular Hemoglobin 25.7 pg (28.0-33.3); Monocytes # 0.6 K/mcL (0.0-1.3); Monocytes % 6.6 %; Neutrophils # 5.3 K/mcL (1.6-8.9); Platelet Count 251 K/mcL (140-400); Red Blood Count 4.83 M/mcL (4.19-5.50); Red Cell Distribution Width 16.1 % (11.5-14.5); Segmented Neutrophils % 60.1 %; White Blood Count 8.8 K/mcL (4.3-11.1)
[2021-01-10 04:22] LABS: BUN/Creatinine Ratio 20 (6-26); Blood Urea Nitrogen 18 mg/dL (8-23); Calcium 9.4 mg/dL (8.6-10.3); Carbon Dioxide 28 mEq/L (23-29); Chloride 104 mEq/L (98-107); Glucose 155 mg/dL (70-105); Osmolality,Calculated 289 (280-300); Potassium 4.4 mEq/L (3.5-5.1); Sodium 137 mEq/L (136-145); eGFR For African Americans > 60 (> 60); eGFR For Non-African Americans > 60 (> 60)
[2021-01-10] MEDS: *HR* HYDROcodone/Acet 5/325 mg TABLET PO PRN (04:24)
[2021-01-10] MEDS: Insulin LISPRO 300 UNITS/3 ML VIAL SUBQ SCH ×3 (07:57→17:26)
[2021-01-10] MEDS: cefTRIAXone 2,000 MG in Water for inj. (sterile) 20 ML IVP SCH (08:10)
[2021-01-10] MEDS: Apixaban 5 MG TABLET PO SCH ×2 (08:11→20:25)
[2021-01-10] MEDS: *HR* Buprenorphine HCl 8 MG TAB.SUBL SL SCH ×3 (08:11→20:24)
[2021-01-10] MEDS: Magnesium Oxide 400 MG TABLET PO SCH (08:11)
[2021-01-10] MEDS: metroNIDAZOLE 500 MG TABLET PO SCH ×3 (08:12→20:25)
[2021-01-10] MEDS: Ascorbic Acid 500 MG TABLET PO SCH (08:12)
[2021-01-10] MEDS: Aspirin Enteric Coated 81 MG Tablet PO SCH (08:13)
[2021-01-10] MEDS: Cholecalciferol (D-3) 1,000 UNIT (25MCG) TABLET PO SCH (08:13)
[2021-01-10] MEDS: aMILoride 5 MG TABLET PO SCH (08:13)
[2021-01-10] MEDS: DilTIAZem CD (24hr) 180 MG CAP.ER.24H PO SCH ×2 (08:20→20:25)
[2021-01-10] MEDS: Acetaminophen 325 MG TABLET PO PRN ×2 (14:33→21:54)
[2021-01-10] MEDS: QUEtiapine Fumarate 25 MG TABLET PO SCH (20:25)
[2021-01-11 02:54] LABS: Basophils % 0.3 %; Eosinophils # 0.4 K/mcL (0.0-0.6); Eosinophils % 4.5 %; Hemoglobin 12.6 g/dL (12.9-16.9); Immature Granulocytes % 0.6 % (0-4); Lymphocytes # 2.5 K/mcL (0.6-4.6); Lymphocytes % 28.2 %; Mean Corpuscular HGB Conc 31.5 g/dL (31.6-35.5); Mean Corpuscular Hemoglobin 25.6 pg (28.0-33.3); Mean Corpuscular Volume 81.3 fL (83.0-100.0); Mean Platelet Volume 9.3 fL (9.4-12.4); Monocytes # 0.6 K/mcL (0.0-1.3); Monocytes % 7.3 %; Neutrophils # 5.1 K/mcL (1.6-8.9); Platelet Count 251 K/mcL (140-400); Red Blood Count 4.92 M/mcL (4.19-5.50); Red Cell Distribution Width 16.1 % (11.5-14.5); Segmented Neutrophils % 59.1 %; White Blood Count 8.7 K/mcL (4.3-11.1)
[2021-01-11 03:17] LABS: BUN/Creatinine Ratio 27 (6-26); Blood Urea Nitrogen 20 mg/dL (8-23); Calcium 9.5 mg/dL (8.6-10.3); Carbon Dioxide 23 mEq/L (23-29); Chloride 104 mEq/L (98-107); Glucose 108 mg/dL (70-105); Osmolality,Calculated 283 (280-300); Potassium 4.4 mEq/L (3.5-5.1); Sodium 135 mEq/L (136-145); eGFR For African Americans > 60 (> 60); eGFR For Non-African Americans > 60 (> 60)
[2021-01-11] MEDS: Insulin LISPRO 300 UNITS/3 ML VIAL SUBQ SCH ×3 (08:37→16:59)
[2021-01-11] MEDS: cefTRIAXone 2,000 MG in Water for inj. (sterile) 20 ML IVP SCH (08:39)
[2021-01-11] MEDS: Apixaban 5 MG TABLET PO SCH ×2 (08:42→20:13)
[2021-01-11] MEDS: Ascorbic Acid 500 MG TABLET PO SCH (08:43)
[2021-01-11] MEDS: aMILoride 5 MG TABLET PO SCH (08:45)
[2021-01-11] MEDS: metroNIDAZOLE 500 MG TABLET PO SCH ×3 (08:46→20:14)
[2021-01-11] MEDS: Magnesium Oxide 400 MG TABLET PO SCH (08:46)
[2021-01-11] MEDS: Aspirin Enteric Coated 81 MG Tablet PO SCH (08:47)
[2021-01-11] MEDS: DilTIAZem CD (24hr) 180 MG CAP.ER.24H PO SCH ×2 (08:47→20:14)
[2021-01-11] MEDS: Cholecalciferol (D-3) 1,000 UNIT (25MCG) TABLET PO SCH (08:48)
[2021-01-11] MEDS: *HR* Buprenorphine HCl 8 MG TAB.SUBL SL SCH ×3 (08:49→20:13)
[2021-01-11] MEDS: Acetaminophen 325 MG TABLET PO PRN ×2 (12:58→23:55)
[2021-01-11] MEDS: QUEtiapine Fumarate 25 MG TABLET PO SCH (20:13)
[2021-01-12] MEDS: Insulin LISPRO 300 UNITS/3 ML VIAL SUBQ SCH ×3 (08:43→17:20)
[2021-01-12] MEDS: cefTRIAXone 2,000 MG in Water for inj. (sterile) 20 ML IVP SCH (08:45)
[2021-01-12] MEDS: Ascorbic Acid 500 MG TABLET PO SCH (08:45)
[2021-01-12] MEDS: Magnesium Oxide 400 MG TABLET PO SCH (08:47)
[2021-01-12] MEDS: Cholecalciferol (D-3) 1,000 UNIT (25MCG) TABLET PO SCH (08:47)
[2021-01-12] MEDS: Aspirin Enteric Coated 81 MG Tablet PO SCH (08:47)
[2021-01-12] MEDS: *HR* Buprenorphine HCl 8 MG TAB.SUBL SL SCH ×3 (08:47→20:37)
[2021-01-12] MEDS: DilTIAZem CD (24hr) 180 MG CAP.ER.24H PO SCH ×2 (08:47→20:36)
[2021-01-12] MEDS: aMILoride 5 MG TABLET PO SCH (08:47)
[2021-01-12] MEDS: Apixaban 5 MG TABLET PO SCH ×2 (08:48→20:36)
[2021-01-12] MEDS: Acetaminophen 325 MG TABLET PO PRN (09:13)
[2021-01-12 09:29] LABS: Basophils # 0.1 K/mcL (0.0-0.2); Basophils % 0.5 %; Eosinophils # 0.4 K/mcL (0.0-0.6); Eosinophils % 4.4 %; Hematocrit 41.6 % (37.5-50.1); Immature Granulocytes % 0.6 % (0-4); Lymphocytes # 2.2 K/mcL (0.6-4.6); Lymphocytes % 23.2 %; Mean Corpuscular HGB Conc 31.3 g/dL (31.6-35.5); Mean Corpuscular Hemoglobin 25.6 pg (28.0-33.3); Mean Corpuscular Volume 82.1 fL (83.0-100.0); Mean Platelet Volume 9.1 fL (9.4-12.4); Monocytes # 0.8 K/mcL (0.0-1.3); Neutrophils # 5.9 K/mcL (1.6-8.9); Platelet Count 266 K/mcL (140-400); Red Blood Count 5.07 M/mcL (4.19-5.50); Red Cell Distribution Width 16.1 % (11.5-14.5); Segmented Neutrophils % 63.3 %; White Blood Count 9.4 K/mcL (4.3-11.1)
[2021-01-12 09:48] LABS: BUN/Creatinine Ratio 29 (6-26); Blood Urea Nitrogen 26 mg/dL (8-23); Calcium 9.5 mg/dL (8.6-10.3); Carbon Dioxide 28 mEq/L (23-29); Chloride 102 mEq/L (98-107); Glucose 149 mg/dL (70-105); Osmolality,Calculated 290 (280-300); Potassium 4.7 mEq/L (3.5-5.1); Sodium 136 mEq/L (136-145); eGFR For African Americans > 60 (> 60); eGFR For Non-African Americans > 60 (> 60)
[2021-01-12] MEDS ORDERED: SUMAtriptan succinate 50 MG TABLET PO ONE (10:07)
[2021-01-12] MEDS: *HR* HYDROcodone/Acet 5/325 mg TABLET PO PRN ×2 (16:04→22:29)
[2021-01-12] MEDS: QUEtiapine Fumarate 25 MG TABLET PO SCH (20:36)
[2021-01-13] MEDS: *HR* HYDROcodone/Acet 5/325 mg TABLET PO PRN ×2 (04:40→19:47)
[2021-01-13 06:02] LABS: Basophils % 0.4 %; Eosinophils # 0.4 K/mcL (0.0-0.6); Hematocrit 39.5 % (37.5-50.1); Hemoglobin 12.4 g/dL (12.9-16.9); Immature Granulocytes % 0.5 % (0-4); Lymphocytes # 2.5 K/mcL (0.6-4.6); Lymphocytes % 32.8 %; Mean Corpuscular HGB Conc 31.4 g/dL (31.6-35.5); Mean Corpuscular Hemoglobin 26.4 pg (28.0-33.3); Mean Platelet Volume 9.5 fL (9.4-12.4); Monocytes # 0.7 K/mcL (0.0-1.3); Neutrophils # 3.9 K/mcL (1.6-8.9); Platelet Count 218 K/mcL (140-400); Red Cell Distribution Width 16.2 % (11.5-14.5); Segmented Neutrophils % 52.3 %; White Blood Count 7.5 K/mcL (4.3-11.1)
[2021-01-13 06:20] LABS: BUN/Creatinine Ratio 30 (6-26); Blood Urea Nitrogen 28 mg/dL (8-23); Calcium 9.4 mg/dL (8.6-10.3); Carbon Dioxide 30 mEq/L (23-29); Chloride 104 mEq/L (98-107); Glucose 121 mg/dL (70-105); Osmolality,Calculated 293 (280-300); Potassium 4.8 mEq/L (3.5-5.1); Sodium 138 mEq/L (136-145); eGFR For African Americans > 60 (> 60); eGFR For Non-African Americans > 60 (> 60)
[2021-01-13] MEDS: Insulin LISPRO 300 UNITS/3 ML VIAL SUBQ SCH ×3 (08:48→20:39)
[2021-01-13] MEDS: Cholecalciferol (D-3) 1,000 UNIT (25MCG) TABLET PO SCH (08:49)
[2021-01-13] MEDS: Aspirin Enteric Coated 81 MG Tablet PO SCH (08:49)
[2021-01-13] MEDS: aMILoride 5 MG TABLET PO SCH (08:49)
[2021-01-13] MEDS: Apixaban 5 MG TABLET PO SCH ×2 (08:50→20:37)
[2021-01-13] MEDS: *HR* Buprenorphine HCl 8 MG TAB.SUBL SL SCH ×3 (08:51→20:37)
[2021-01-13] MEDS: Magnesium Oxide 400 MG TABLET PO SCH (08:52)
[2021-01-13] MEDS: DilTIAZem CD (24hr) 180 MG CAP.ER.24H PO SCH ×2 (08:52→20:37)
[2021-01-13] MEDS: cefTRIAXone 2,000 MG in Water for inj. (sterile) 20 ML IVP SCH (08:53)
[2021-01-13] MEDS: Ascorbic Acid 500 MG TABLET PO SCH (09:13)
[2021-01-13] MEDS: QUEtiapine Fumarate 25 MG TABLET PO SCH (20:37)
[2021-01-14] MEDS: *HR* HYDROcodone/Acet 5/325 mg TABLET PO PRN (02:16)
[2021-01-14 06:19] LABS: Hematocrit 41.8 % (37.5-50.1); Hemoglobin 13.3 g/dL (12.9-16.9); Mean Corpuscular HGB Conc 31.8 g/dL (31.6-35.5); Mean Corpuscular Hemoglobin 26.8 pg (28.0-33.3); Mean Corpuscular Volume 84.1 fL (83.0-100.0); Mean Platelet Volume 9.1 fL (9.4-12.4); Platelet Count 214 K/mcL (140-400); Red Blood Count 4.97 M/mcL (4.19-5.50); Red Cell Distribution Width 16.4 % (11.5-14.5); White Blood Count 7.5 K/mcL (4.3-11.1)
[2021-01-14 06:31] LABS: BUN/Creatinine Ratio 33 (6-26); Blood Urea Nitrogen 27 mg/dL (8-23); Calcium 9.1 mg/dL (8.6-10.3); Carbon Dioxide 26 mEq/L (23-29); Chloride 104 mEq/L (98-107); Glucose 132 mg/dL (70-105); Magnesium 1.6 mg/dL (1.6-2.6); Osmolality,Calculated 287 (280-300); Potassium 4.2 mEq/L (3.5-5.1); Sodium 135 mEq/L (136-145); eGFR For African Americans > 60 (> 60); eGFR For Non-African Americans > 60 (> 60)
[2021-01-14] MEDS: Ascorbic Acid 500 MG TABLET PO SCH (08:53)
[2021-01-14] MEDS: aMILoride 5 MG TABLET PO SCH (08:53)
[2021-01-14] MEDS: Aspirin Enteric Coated 81 MG Tablet PO SCH (08:58)
[2021-01-14] MEDS: DilTIAZem CD (24hr) 180 MG CAP.ER.24H PO SCH (08:58)
[2021-01-14] MEDS: Apixaban 5 MG TABLET PO SCH (08:59)
[2021-01-14] MEDS: Cholecalciferol (D-3) 1,000 UNIT (25MCG) TABLET PO SCH (08:59)
[2021-01-14] MEDS: Magnesium Oxide 400 MG TABLET PO SCH (08:59)
[2021-01-14] MEDS ORDERED: Multivit/Ca/Min/Fe/FA 1 TAB TABLET PO SCH (09:00)
[2021-01-14] MEDS: *HR* Buprenorphine HCl 8 MG TAB.SUBL SL SCH ×2 (09:00→14:17)
[2021-01-14] MEDS: Insulin LISPRO 300 UNITS/3 ML VIAL SUBQ SCH ×3 (09:01→16:29)
[2021-01-14] MEDS: cefTRIAXone 2,000 MG in Water for inj. (sterile) 20 ML IVP SCH (09:01)
[2021-01-14 10:30] VITALS: BP 128/78
[2021-01-14 13:21] LABS: Adenovirus Not Detected (Not Detect); Bordetella Pertussis Not Detected (Not Detect); Chlamydophila pneumoniae Not Detected (Not Detect); Coronavirus 229E Not Detected (Not Detect); Coronavirus HKU1 Not Detected (Not Detect); Coronavirus NL63 Not Detected (Not Detect); Coronavirus OC43 Not Detected (Not Detect); Human Metapneumovirus Not Detected (Not Detect); Human Rhinovirus/Enterovirus Not Detected (Not Detect); Influenza A Subtype 2009 H1 Not Detected (Not Detect); Influenza B Not Detected (Not Detect); Mycoplasma pneumoniae Not Detected (Not Detect); Parainfluenza Virus 1 Not Detected (Not Detect); Parainfluenza Virus 2 Not Detected (Not Detect); Parainfluenza Virus 3 Not Detected (Not Detect); Parainfluenza Virus 4 Not Detected (Not Detect); Respiratory Syncytial Virus Not Detected (Not Detect); SARS-CoV-2 Not Detected (Not Detect)
[2021-01-14] MEDS ORDERED: metroNIDAZOLE 500 MG TABLET PO SCH (15:00)
[2021-01-14] MEDS: Acetaminophen 325 MG TABLET PO PRN (17:05)
[2021-01-14] MEDS ORDERED: Nystatin POWDER 30 GM BOTTLE TP SCH (21:00)
== END 2021-01-14 17:10 | disposition critical access hospital (66) | DRG 629 ==
LOC: 3ANU 13:26 → EMEROOARM 13:26 → SUATTDRO 15:44 → 3ANU 16:33 → SUATTDRO 01-05 14:32
PROVIDERS: ADMIT Internal Medicine; ATTEND Internal Medicine

== ENCOUNTER 2022-05-26 11:26 | Inpatient (IN) ==
[2022-05-26 15:51] LABS: Basophils % 0.5 %; Eosinophils # 0.3 K/mcL (0.0-0.6); Eosinophils % 4.2 %; Hematocrit 45.4 % (37.5-50.1); Hemoglobin 14.8 g/dL (12.9-16.9); Immature Granulocytes % 0.4 % (0-4); Lymphocytes # 1.3 K/mcL (0.6-4.6); Lymphocytes % 17.3 %; Mean Corpuscular HGB Conc 32.6 g/dL (31.6-35.5); Mean Corpuscular Hemoglobin 29.1 pg (28.0-33.3); Mean Corpuscular Volume 89.4 fL (83.0-100.0); Mean Platelet Volume 10.6 fL (9.4-12.4); Monocytes # 0.7 K/mcL (0.0-1.3); Monocytes % 9.4 %; Neutrophils # 5.2 K/mcL (1.6-8.9); Platelet Count 125 K/mcL (140-400); Red Blood Count 5.08 M/mcL (4.19-5.50); Red Cell Distribution Width 14.1 % (11.5-14.5); Segmented Neutrophils % 68.2 %; White Blood Count 7.6 K/mcL (4.3-11.1)
[2022-05-26 17:12] LABS: BUN/Creatinine Ratio 25 (6-26); Blood Urea Nitrogen 15 mg/dL (8-23); Calcium 7.5 mg/dL (8.6-10.3); Carbon Dioxide 25 mEq/L (23-29); Chloride 114 mEq/L (98-107); Glucose 98 mg/dL (70-105); Osmolality,Calculated 295 (280-300); Potassium 3.7 mEq/L (3.5-5.1); Sodium 142 mEq/L (136-145); eGFR For African Americans > 60 (> 60); eGFR For Non-African Americans > 60 (> 60)
[2022-05-26] MEDS ORDERED: Piperacillin/Tazobactam 3.375 GM in 0.9 % Sodium Chloride Mini Bag 100 ML IVPB ONE (17:49)
[2022-05-26] MEDS ORDERED: Morphine Sulfate 2 MG/ML SYRINGE IVP ONE (17:49)
[2022-05-26 17:52] LABS: C-Reactive Protein 54 mg/L (Less than 10)
[2022-05-26] MEDS ORDERED: Vancomycin 2,000 MG/520 ML IV.SOLN IVPB ONE (18:00)
[2022-05-26] MEDS ORDERED: Melatonin 3 MG TABLET PO PRN (18:02)
[2022-05-26] MEDS ORDERED: Naloxone 0.4 MG/ML INJ IVP PRN (18:02)
[2022-05-26] MEDS ORDERED: Mag Hydrox/Al Hydrox/Simeth 30 ML UDC PO PRN (18:02)
[2022-05-26] MEDS ORDERED: Ondansetron 4 MG/2 ML VIAL IVP PRN (18:02)
[2022-05-26] MEDS: Insulin LISPRO 300 UNITS/3 ML VIAL SUBQ SCH (20:24)
[2022-05-26] MEDS ORDERED: *HR* Heparin 5,000 UNIT/ML VIAL IVP PRN ×2 (20:59)
[2022-05-26] MEDS ORDERED: Furosemide 40 MG TABLET PO PRN (22:04)
[2022-05-26] MEDS ORDERED: Acetaminophen 325 MG TABLET PO PRN (22:05)
[2022-05-26] MEDS: *HR* OxyCODONE/APAP 5/325 TABLET PO PRN (22:28)
[2022-05-26] MEDS: DilTIAZem CD (24hr) 180 MG CAP.ER.24H PO SCH (22:28)
[2022-05-26] MEDS: Topiramate 25 MG TABLET PO SCH (22:28)
[2022-05-26] MEDS: QUEtiapine Fumarate 100 MG TABLET PO SCH (22:28)
[2022-05-26] MEDS: Heparin 25,000UNIT/250ML 1/2NS 25,000 UNIT/250 ML IV.SOLN IVC SCH (23:13)
[2022-05-27] MEDS: Piperacillin/Tazobactam 3.375 GM in 0.9 % Sodium Chloride Mini Bag 100 ML IVPB SCH ×3 (01:54→18:57)
[2022-05-27] MEDS: *HR* OxyCODONE/APAP 5/325 TABLET PO PRN ×5 (02:16→21:56)
[2022-05-27] MEDS: Vancomycin 1,750 MG/517.5 ML IV.SOLN IVPB SCH ×2 (05:51→21:57)
[2022-05-27 05:58] LABS: Basophils % 0.4 %; Eosinophils # 0.4 K/mcL (0.0-0.6); Eosinophils % 5.6 %; Hematocrit 42.6 % (37.5-50.1); Hemoglobin 13.5 g/dL (12.9-16.9); Immature Granulocytes % 0.4 % (0-4); Lymphocytes % 28.3 %; Mean Corpuscular HGB Conc 31.7 g/dL (31.6-35.5); Mean Corpuscular Hemoglobin 28.8 pg (28.0-33.3); Mean Platelet Volume 10.3 fL (9.4-12.4); Monocytes # 0.7 K/mcL (0.0-1.3); Neutrophils # 3.9 K/mcL (1.6-8.9); Platelet Count 112 K/mcL (140-400); Red Blood Count 4.68 M/mcL (4.19-5.50); Red Cell Distribution Width 14.1 % (11.5-14.5); Segmented Neutrophils % 55.3 %; White Blood Count 7.1 K/mcL (4.3-11.1)
[2022-05-27 06:17] LABS: BUN/Creatinine Ratio 19 (6-26); Blood Urea Nitrogen 15 mg/dL (8-23); Calcium 8.7 mg/dL (8.6-10.3); Carbon Dioxide 23 mEq/L (23-29); Chloride 109 mEq/L (98-107); Glucose 106 mg/dL (70-105); Magnesium 1.7 mg/dL (1.6-2.6); Osmolality,Calculated 291 (280-300); Potassium 3.9 mEq/L (3.5-5.1); Sodium 140 mEq/L (136-145); eGFR For African Americans > 60 (> 60); eGFR For Non-African Americans > 60 (> 60)
[2022-05-27] MEDS: Insulin LISPRO 300 UNITS/3 ML VIAL SUBQ SCH ×4 (08:14→21:51)
[2022-05-27] MEDS: Heparin 25,000UNIT/250ML 1/2NS 25,000 UNIT/250 ML IV.SOLN IVC SCH (10:36)
[2022-05-27] MEDS: Multivit/Ca/Min/Fe/FA 1 TAB TABLET PO SCH (10:37)
[2022-05-27] MEDS: aMILoride 5 MG TABLET PO SCH (10:37)
[2022-05-27] MEDS: Aspirin Enteric Coated 81 MG Tablet PO SCH (10:37)
[2022-05-27] MEDS: Cyanocobalamin (B-12) 1,000 MCG TABLET PO SCH (10:37)
[2022-05-27] MEDS: DilTIAZem CD (24hr) 180 MG CAP.ER.24H PO SCH ×2 (10:37→21:56)
[2022-05-27] MEDS: Cholecalciferol (D-3) 1,000 UNIT (25MCG) TABLET PO SCH (10:38)
[2022-05-27] MEDS: Topiramate 25 MG TABLET PO SCH ×2 (10:38→21:56)
[2022-05-27] MEDS: (Leflunomide [Arava] 20 MG Tablet) PO SCH (10:39)
[2022-05-27 13:32] LABS: Estimated Average Glucose 103 mg/dl; Hemoglobin A1C 5.2 %
[2022-05-27] MEDS ORDERED: Ondansetron 4 MG/2 ML VIAL ONE (16:05)
[2022-05-27] MEDS ORDERED: *HR* Midazolam HCl 2 MG/2 ML VIAL ONE (16:05)
[2022-05-27] MEDS ORDERED: *HR* FentaNYL (PF) 100 MCG/2 ML VIAL ONE (16:05)
[2022-05-27] MEDS ORDERED: Lidocaine -MPF 2% 5 ML VIAL ONE (16:05)
[2022-05-27] MEDS ORDERED: *HR* Propofol 200 MG/20 ML VIAL IVP ONE ×2 (16:05→16:08)
[2022-05-27] MEDS ORDERED: Bupivacaine/Clonidine Syringe 20 ML, Syringe LUER-LOK 1 EACH TP ONE (16:15)
[2022-05-27] MEDS ORDERED: Ringers Solution, Lactated 1,000 ML IVC SCH (16:45)
[2022-05-27] MEDS: QUEtiapine Fumarate 100 MG TABLET PO SCH (21:56)
[2022-05-28 00:54] LABS: Basophils % 0.6 %; Immature Granulocytes % 0.3 % (0-4); Red Cell Distribution Width 13.8 % (11.5-14.5)
[2022-05-28 00:56] LABS: Eosinophils # 0.4 K/mcL (0.0-0.6); Eosinophils % 6.5 %; Hematocrit 41.1 % (37.5-50.1); Hemoglobin 13.3 g/dL (12.9-16.9); Lymphocytes # 1.6 K/mcL (0.6-4.6); Lymphocytes % 25.1 %; Mean Corpuscular HGB Conc 32.4 g/dL (31.6-35.5); Mean Corpuscular Hemoglobin 29.2 pg (28.0-33.3); Mean Corpuscular Volume 90.1 fL (83.0-100.0); Mean Platelet Volume 10.5 fL (9.4-12.4); Monocytes # 0.6 K/mcL (0.0-1.3); Monocytes % 9.7 %; Neutrophils # 3.8 K/mcL (1.6-8.9); Platelet Count 122 K/mcL (140-400); Red Blood Count 4.56 M/mcL (4.19-5.50); Segmented Neutrophils % 57.8 %; White Blood Count 6.5 K/mcL (4.3-11.1)
[2022-05-28 00:58] LABS: BUN/Creatinine Ratio 18 (6-26); Blood Urea Nitrogen 14 mg/dL (8-23); Calcium 8.5 mg/dL (8.6-10.3); Carbon Dioxide 21 mEq/L (23-29); Chloride 111 mEq/L (98-107); Glucose 149 mg/dL (70-105); Osmolality,Calculated 291 (280-300); Potassium 3.8 mEq/L (3.5-5.1); Sodium 139 mEq/L (136-145); eGFR For African Americans > 60 (> 60); eGFR For Non-African Americans > 60 (> 60)
[2022-05-28] MEDS: Piperacillin/Tazobactam 3.375 GM in 0.9 % Sodium Chloride Mini Bag 100 ML IVPB SCH ×4 (01:41→23:55)
[2022-05-28] MEDS: Insulin LISPRO 300 UNITS/3 ML VIAL SUBQ SCH ×4 (09:16→20:34)
[2022-05-28] MEDS: Vancomycin 1,750 MG/517.5 ML IV.SOLN IVPB SCH ×2 (09:19→18:27)
[2022-05-28] MEDS: Aspirin Enteric Coated 81 MG Tablet PO SCH (09:22)
[2022-05-28] MEDS: DilTIAZem CD (24hr) 180 MG CAP.ER.24H PO SCH ×2 (09:22→20:33)
[2022-05-28] MEDS: Multivit/Ca/Min/Fe/FA 1 TAB TABLET PO SCH (09:23)
[2022-05-28] MEDS: aMILoride 5 MG TABLET PO SCH (09:23)
[2022-05-28] MEDS: (Leflunomide [Arava] 20 MG Tablet) PO SCH (09:23)
[2022-05-28] MEDS: Topiramate 25 MG TABLET PO SCH ×2 (09:23→20:33)
[2022-05-28] MEDS: Cyanocobalamin (B-12) 1,000 MCG TABLET PO SCH (09:23)
[2022-05-28] MEDS: Cholecalciferol (D-3) 1,000 UNIT (25MCG) TABLET PO SCH (09:23)
[2022-05-28] MEDS: *HR* OxyCODONE/APAP 5/325 TABLET PO PRN ×3 (11:53→21:46)
[2022-05-28] MEDS: Apixaban 5 MG TABLET PO SCH ×2 (12:35→20:34)
[2022-05-28] MEDS: QUEtiapine Fumarate 100 MG TABLET PO SCH (20:33)
[2022-05-28] MEDS: SALSALATE 750 MG PO SCH (21:26)
[2022-05-29] MEDS: *HR* OxyCODONE/APAP 5/325 TABLET PO PRN ×4 (05:10→20:39)
[2022-05-29] MEDS: Vancomycin 1,750 MG/517.5 ML IV.SOLN IVPB SCH ×2 (05:10→17:26)
[2022-05-29 10:19] LABS: Basophils % 0.8 %; Eosinophils # 0.5 K/mcL (0.0-0.6); Eosinophils % 9.8 %; Hematocrit 43.8 % (37.5-50.1); Immature Granulocytes % 0.2 % (0-4); Lymphocytes # 1.2 K/mcL (0.6-4.6); Lymphocytes % 22.6 %; Mean Corpuscular Hemoglobin 28.9 pg (28.0-33.3); Mean Corpuscular Volume 90.3 fL (83.0-100.0); Mean Platelet Volume 10.1 fL (9.4-12.4); Monocytes # 0.4 K/mcL (0.0-1.3); Monocytes % 7.9 %; Neutrophils # 3.1 K/mcL (1.6-8.9); Platelet Count 113 K/mcL (140-400); Red Blood Count 4.85 M/mcL (4.19-5.50); Red Cell Distribution Width 13.8 % (11.5-14.5); Segmented Neutrophils % 58.7 %; White Blood Count 5.2 K/mcL (4.3-11.1)
[2022-05-29] MEDS: Multivit/Ca/Min/Fe/FA 1 TAB TABLET PO SCH (10:21)
[2022-05-29] MEDS: Cholecalciferol (D-3) 1,000 UNIT (25MCG) TABLET PO SCH (10:21)
[2022-05-29] MEDS: aMILoride 5 MG TABLET PO SCH (10:21)
[2022-05-29] MEDS: Magnesium Oxide 400 MG TABLET PO SCH (10:21)
[2022-05-29] MEDS: Aspirin Enteric Coated 81 MG Tablet PO SCH (10:21)
[2022-05-29] MEDS: Apixaban 5 MG TABLET PO SCH ×2 (10:22→20:39)
[2022-05-29] MEDS: Topiramate 25 MG TABLET PO SCH ×2 (10:22→20:39)
[2022-05-29] MEDS: Cyanocobalamin (B-12) 1,000 MCG TABLET PO SCH (10:22)
[2022-05-29] MEDS: DilTIAZem CD (24hr) 180 MG CAP.ER.24H PO SCH ×2 (10:22→20:39)
[2022-05-29] MEDS: (Leflunomide [Arava] 20 MG Tablet) PO SCH (10:23)
[2022-05-29] MEDS: SALSALATE 750 MG PO SCH ×2 (10:23→22:05)
[2022-05-29] MEDS: Insulin LISPRO 300 UNITS/3 ML VIAL SUBQ SCH ×4 (10:26→22:05)
[2022-05-29] MEDS: Piperacillin/Tazobactam 3.375 GM in 0.9 % Sodium Chloride Mini Bag 100 ML IVPB SCH ×2 (10:29→17:24)
[2022-05-29 10:38] LABS: BUN/Creatinine Ratio 15 (6-26); Blood Urea Nitrogen 12 mg/dL (8-23); Carbon Dioxide 24 mEq/L (23-29); Chloride 108 mEq/L (98-107); Glucose 169 mg/dL (70-105); Osmolality,Calculated 290 (280-300); Potassium 4.1 mEq/L (3.5-5.1); Sodium 138 mEq/L (136-145); eGFR For African Americans > 60 (> 60); eGFR For Non-African Americans > 60 (> 60)
[2022-05-29] MEDS: QUEtiapine Fumarate 100 MG TABLET PO SCH (20:39)
[2022-05-29] MEDS: Insulin DETEMIR 100 UNIT/ML X5UNITS SUBQ SCH (20:39)
[2022-05-30] MEDS: Piperacillin/Tazobactam 3.375 GM in 0.9 % Sodium Chloride Mini Bag 100 ML IVPB SCH ×2 (00:23→09:51)
[2022-05-30] MEDS: *HR* OxyCODONE/APAP 5/325 TABLET PO PRN ×4 (01:00→21:08)
[2022-05-30 05:54] LABS: Basophils # 0.1 K/mcL (0.0-0.2); Basophils % 0.7 %; Eosinophils # 0.7 K/mcL (0.0-0.6); Eosinophils % 9.3 %; Hematocrit 43.9 % (37.5-50.1); Hemoglobin 14.1 g/dL (12.9-16.9); Immature Granulocytes % 0.4 % (0-4); Lymphocytes # 2.4 K/mcL (0.6-4.6); Lymphocytes % 31.7 %; Mean Corpuscular HGB Conc 32.1 g/dL (31.6-35.5); Mean Corpuscular Hemoglobin 28.9 pg (28.0-33.3); Monocytes # 0.6 K/mcL (0.0-1.3); Monocytes % 7.9 %; Neutrophils # 3.7 K/mcL (1.6-8.9); Platelet Count 133 K/mcL (140-400); Red Blood Count 4.88 M/mcL (4.19-5.50); Red Cell Distribution Width 13.8 % (11.5-14.5); White Blood Count 7.5 K/mcL (4.3-11.1)
[2022-05-30] MEDS: Vancomycin 1,750 MG/517.5 ML IV.SOLN IVPB SCH (06:02)
[2022-05-30 06:16] LABS: BUN/Creatinine Ratio 17 (6-26); Blood Urea Nitrogen 13 mg/dL (8-23); Calcium 9.2 mg/dL (8.6-10.3); Carbon Dioxide 22 mEq/L (23-29); Chloride 111 mEq/L (98-107); Glucose 106 mg/dL (70-105); Osmolality,Calculated 291 (280-300); Potassium 4.3 mEq/L (3.5-5.1); Sodium 140 mEq/L (136-145); eGFR For African Americans > 60 (> 60); eGFR For Non-African Americans > 60 (> 60)
[2022-05-30] MEDS: Insulin LISPRO 300 UNITS/3 ML VIAL SUBQ SCH ×4 (07:34→20:43)
[2022-05-30] MEDS: Aspirin Enteric Coated 81 MG Tablet PO SCH (09:47)
[2022-05-30] MEDS: Multivit/Ca/Min/Fe/FA 1 TAB TABLET PO SCH (09:47)
[2022-05-30] MEDS: Apixaban 5 MG TABLET PO SCH ×2 (09:47→20:42)
[2022-05-30] MEDS: Cholecalciferol (D-3) 1,000 UNIT (25MCG) TABLET PO SCH (09:47)
[2022-05-30] MEDS: DilTIAZem CD (24hr) 180 MG CAP.ER.24H PO SCH ×2 (09:47→20:42)
[2022-05-30] MEDS: aMILoride 5 MG TABLET PO SCH (09:48)
[2022-05-30] MEDS: Topiramate 25 MG TABLET PO SCH ×2 (09:48→20:43)
[2022-05-30] MEDS: Magnesium Oxide 400 MG TABLET PO SCH (09:48)
[2022-05-30] MEDS: Cyanocobalamin (B-12) 1,000 MCG TABLET PO SCH (09:48)
[2022-05-30] MEDS: SALSALATE 750 MG PO SCH ×2 (09:49→20:43)
[2022-05-30] MEDS: (Leflunomide [Arava] 20 MG Tablet) PO SCH (09:49)
[2022-05-30] MEDS: CeFAZolin 2,000 MG/120 ML BAG IVPB SCH ×2 (16:57→23:33)
[2022-05-30] MEDS: QUEtiapine Fumarate 100 MG TABLET PO SCH (20:42)
[2022-05-30] MEDS: Insulin DETEMIR 100 UNIT/ML X5UNITS SUBQ SCH (20:42)
[2022-05-31] MEDS: *HR* OxyCODONE/APAP 5/325 TABLET PO PRN ×4 (04:22→19:47)
[2022-05-31 07:55] LABS: Basophils % 0.6 %; Eosinophils # 0.6 K/mcL (0.0-0.6); Eosinophils % 8.6 %; Hematocrit 46.1 % (37.5-50.1); Hemoglobin 15.2 g/dL (12.9-16.9); Immature Granulocytes % 0.6 % (0-4); Lymphocytes # 1.7 K/mcL (0.6-4.6); Lymphocytes % 24.5 %; Mean Corpuscular Volume 87.8 fL (83.0-100.0); Mean Platelet Volume 9.8 fL (9.4-12.4); Monocytes # 0.6 K/mcL (0.0-1.3); Monocytes % 8.1 %; Platelet Count 128 K/mcL (140-400); Red Blood Count 5.25 M/mcL (4.19-5.50); Red Cell Distribution Width 13.8 % (11.5-14.5); Segmented Neutrophils % 57.6 %; White Blood Count 6.9 K/mcL (4.3-11.1)
[2022-05-31 08:18] LABS: BUN/Creatinine Ratio 13 (6-26); Blood Urea Nitrogen 11 mg/dL (8-23); Calcium 9.6 mg/dL (8.6-10.3); Carbon Dioxide 27 mEq/L (23-29); Chloride 108 mEq/L (98-107); Glucose 116 mg/dL (70-105); Osmolality,Calculated 290 (280-300); Potassium 4.3 mEq/L (3.5-5.1); Sodium 140 mEq/L (136-145); eGFR For African Americans > 60 (> 60); eGFR For Non-African Americans > 60 (> 60)
[2022-05-31] MEDS: aMILoride 5 MG TABLET PO SCH (09:28)
[2022-05-31] MEDS: Topiramate 25 MG TABLET PO SCH ×2 (09:29→21:12)
[2022-05-31] MEDS: Apixaban 5 MG TABLET PO SCH ×2 (09:29→21:12)
[2022-05-31] MEDS: Aspirin Enteric Coated 81 MG Tablet PO SCH (09:29)
[2022-05-31] MEDS: Cholecalciferol (D-3) 1,000 UNIT (25MCG) TABLET PO SCH (09:29)
[2022-05-31] MEDS: Magnesium Oxide 400 MG TABLET PO SCH (09:29)
[2022-05-31] MEDS: Cyanocobalamin (B-12) 1,000 MCG TABLET PO SCH (09:29)
[2022-05-31] MEDS: Multivit/Ca/Min/Fe/FA 1 TAB TABLET PO SCH (09:30)
[2022-05-31] MEDS: Insulin LISPRO 300 UNITS/3 ML VIAL SUBQ SCH ×4 (09:35→21:12)
[2022-05-31] MEDS: (Leflunomide [Arava] 20 MG Tablet) PO SCH (09:35)
[2022-05-31] MEDS: SALSALATE 750 MG PO SCH ×2 (09:35→21:13)
[2022-05-31] MEDS: CeFAZolin 2,000 MG/120 ML BAG IVPB SCH ×3 (09:37→23:10)
[2022-05-31] MEDS: DilTIAZem CD (24hr) 180 MG CAP.ER.24H PO SCH ×2 (09:40→21:12)
[2022-05-31] MEDS: *HR* HYDROcodone/Acet 5/325 mg TABLET PO PRN ×2 (17:10→23:10)
[2022-05-31] MEDS: QUEtiapine Fumarate 100 MG TABLET PO SCH (21:11)
[2022-05-31] MEDS: Insulin DETEMIR 100 UNIT/ML X5UNITS SUBQ SCH (21:12)
[2022-06-01 02:03] LABS: BUN/Creatinine Ratio 17 (6-26); Blood Urea Nitrogen 15 mg/dL (8-23); Calcium 9.3 mg/dL (8.6-10.3); Carbon Dioxide 24 mEq/L (23-29); Chloride 107 mEq/L (98-107); Glucose 108 mg/dL (70-105); Osmolality,Calculated 293 (280-300); Potassium 4.5 mEq/L (3.5-5.1); Sodium 141 mEq/L (136-145); eGFR For African Americans > 60 (> 60); eGFR For Non-African Americans > 60 (> 60)
[2022-06-01 02:06] LABS: Basophils # 0.1 K/mcL (0.0-0.2); Basophils % 0.8 %; Eosinophils # 0.6 K/mcL (0.0-0.6); Eosinophils % 7.9 %; Hematocrit 45.1 % (37.5-50.1); Hemoglobin 14.8 g/dL (12.9-16.9); Immature Granulocytes % 0.4 % (0-4); Lymphocytes # 2.6 K/mcL (0.6-4.6); Lymphocytes % 33.8 %; Mean Corpuscular HGB Conc 32.8 g/dL (31.6-35.5); Mean Corpuscular Hemoglobin 28.8 pg (28.0-33.3); Mean Corpuscular Volume 87.9 fL (83.0-100.0); Mean Platelet Volume 9.8 fL (9.4-12.4); Monocytes # 0.6 K/mcL (0.0-1.3); Monocytes % 7.7 %; Neutrophils # 3.8 K/mcL (1.6-8.9); Platelet Count 152 K/mcL (140-400); Red Blood Count 5.13 M/mcL (4.19-5.50); Red Cell Distribution Width 13.8 % (11.5-14.5); Segmented Neutrophils % 49.4 %; White Blood Count 7.6 K/mcL (4.3-11.1)
[2022-06-01] MEDS: *HR* OxyCODONE/APAP 5/325 TABLET PO PRN ×5 (04:44→22:32)
[2022-06-01] MEDS: Insulin LISPRO 300 UNITS/3 ML VIAL SUBQ SCH ×4 (08:25→19:49)
[2022-06-01] MEDS: Aspirin Enteric Coated 81 MG Tablet PO SCH (08:26)
[2022-06-01] MEDS: Apixaban 5 MG TABLET PO SCH ×2 (08:26→19:49)
[2022-06-01] MEDS: Multivit/Ca/Min/Fe/FA 1 TAB TABLET PO SCH (08:26)
[2022-06-01] MEDS: Cholecalciferol (D-3) 1,000 UNIT (25MCG) TABLET PO SCH (08:26)
[2022-06-01] MEDS: DilTIAZem CD (24hr) 180 MG CAP.ER.24H PO SCH ×2 (08:26→19:49)
[2022-06-01] MEDS: aMILoride 5 MG TABLET PO SCH (08:26)
[2022-06-01] MEDS: Topiramate 25 MG TABLET PO SCH ×2 (08:27→19:49)
[2022-06-01] MEDS: Magnesium Oxide 400 MG TABLET PO SCH (08:27)
[2022-06-01] MEDS: Cyanocobalamin (B-12) 1,000 MCG TABLET PO SCH (08:27)
[2022-06-01] MEDS: SALSALATE 750 MG PO SCH ×2 (08:27→19:49)
[2022-06-01] MEDS: (Leflunomide [Arava] 20 MG Tablet) PO SCH (08:27)
[2022-06-01] MEDS: CeFAZolin 2,000 MG/120 ML BAG IVPB SCH ×3 (09:03→23:41)
[2022-06-01] MEDS: *HR* HYDROcodone/Acet 5/325 mg TABLET PO PRN ×2 (10:16→19:48)
[2022-06-01] MEDS: QUEtiapine Fumarate 100 MG TABLET PO SCH (19:49)
[2022-06-01] MEDS: Insulin DETEMIR 100 UNIT/ML X5UNITS SUBQ SCH (19:52)
[2022-06-02] MEDS: *HR* OxyCODONE/APAP 5/325 TABLET PO PRN ×2 (04:55→13:05)
[2022-06-02 05:18] LABS: Basophils # 0.1 K/mcL (0.0-0.2); Basophils % 0.6 %; Eosinophils # 0.6 K/mcL (0.0-0.6); Eosinophils % 7.1 %; Hematocrit 44.9 % (37.5-50.1); Hemoglobin 14.6 g/dL (12.9-16.9); Immature Granulocytes % 0.5 % (0-4); Lymphocytes # 2.5 K/mcL (0.6-4.6); Lymphocytes % 32.1 %; Mean Corpuscular HGB Conc 32.5 g/dL (31.6-35.5); Mean Corpuscular Hemoglobin 28.7 pg (28.0-33.3); Mean Corpuscular Volume 88.4 fL (83.0-100.0); Mean Platelet Volume 10.2 fL (9.4-12.4); Monocytes # 0.6 K/mcL (0.0-1.3); Monocytes % 7.2 %; Neutrophils # 4.1 K/mcL (1.6-8.9); Platelet Count 138 K/mcL (140-400); Red Blood Count 5.08 M/mcL (4.19-5.50); Red Cell Distribution Width 13.8 % (11.5-14.5); Segmented Neutrophils % 52.5 %; White Blood Count 7.7 K/mcL (4.3-11.1)
[2022-06-02 05:32] LABS: BUN/Creatinine Ratio 17 (6-26); Blood Urea Nitrogen 15 mg/dL (8-23); Calcium 9.2 mg/dL (8.6-10.3); Carbon Dioxide 26 mEq/L (23-29); Chloride 109 mEq/L (98-107); Glucose 105 mg/dL (70-105); Osmolality,Calculated 291 (280-300); Potassium 4.3 mEq/L (3.5-5.1); Sodium 140 mEq/L (136-145); eGFR For African Americans > 60 (> 60); eGFR For Non-African Americans > 60 (> 60)
[2022-06-02] MEDS: aMILoride 5 MG TABLET PO SCH (08:18)
[2022-06-02] MEDS: *HR* HYDROcodone/Acet 5/325 mg TABLET PO PRN ×2 (08:18→14:54)
[2022-06-02] MEDS: Magnesium Oxide 400 MG TABLET PO SCH (08:19)
[2022-06-02] MEDS: Cyanocobalamin (B-12) 1,000 MCG TABLET PO SCH (08:19)
[2022-06-02] MEDS: DilTIAZem CD (24hr) 180 MG CAP.ER.24H PO SCH (08:19)
[2022-06-02] MEDS: Topiramate 25 MG TABLET PO SCH (08:19)
[2022-06-02] MEDS: Apixaban 5 MG TABLET PO SCH (08:20)
[2022-06-02] MEDS: Cholecalciferol (D-3) 1,000 UNIT (25MCG) TABLET PO SCH (08:21)
[2022-06-02] MEDS: Aspirin Enteric Coated 81 MG Tablet PO SCH (08:21)
[2022-06-02] MEDS: Multivit/Ca/Min/Fe/FA 1 TAB TABLET PO SCH (08:21)
[2022-06-02] MEDS: CeFAZolin 2,000 MG/120 ML BAG IVPB SCH (08:30)
[2022-06-02] MEDS: Insulin LISPRO 300 UNITS/3 ML VIAL SUBQ SCH ×2 (08:37→12:41)
[2022-06-02 11:01] VITALS: BP 129/74; PULSE 74; TEMP 98; O2SAT 98
[2022-06-02] MEDS: (Leflunomide [Arava] 20 MG Tablet) PO SCH (11:39)
[2022-06-02] MEDS: SALSALATE 750 MG PO SCH (11:39)
[2022-06-02 12:19] LABS: Influenza A PCR Negative (Negative); Influenza B PCR Negative (Negative); Resp. Syncytial Virus PCR Negative (Negative)
[2022-06-02 12:21] LABS: SARS-CoV-2 by PCR (In House) Positive (Negative)
== END 2022-06-02 16:39 | disposition other institution (70) | DRG 622 ==
LOC: EMEROOARM 11:26 → 4WAOSI 11:26 → SUATTDRO 18:08 → 4WAOSI 19:25 → SUATTDRO 05-28 08:56
PROVIDERS: ADMIT Family Medicine; ATTEND Internal Medicine